=== PATIENT | female | born 1955 | race Caucasian/White ===

== ENCOUNTER 2023-05-14 07:57 | Outpatient (OUT) | payer MEDICARE, OTHER, SELFPAY ==
[2023-05-14 08:20] LABS: Basophils Percent Auto 0.3 % (0.2-2.0); Eosinophils Absolute Auto 0.1 10^3/uL (0.0-0.7); Eosinophils Percent Auto 1.1 % (0.9-7.0); Hematocrit 41.6 % (36.0-48.0); Hemoglobin 13.9 g/dL (12.0-16.0); Immature Granulocytes Abs Auto 0.02 10^3/uL (0.00-0.03); Immature Granulocytes Pct Auto 0.3 % (0.0-0.5); Lymphocytes Absolute Auto 2.7 10^3/uL (1.2-3.8); Lymphocytes Percent Auto 34.3 % (20.5-60.0); Mean Corpuscular HGB Conc 33.4 g/dL (29.9-35.2); Mean Corpuscular Hemoglobin 31.3 pg (26.7-34.0); Mean Corpuscular Volume 93.7 fL (81.0-99.0); Mean Platelet Volume 9.2 fL (9.5-13.5); Monocytes Absolute Auto 0.4 10^3/uL (0.3-0.8); Monocytes Percent Auto 5.3 % (1.7-12.0); Neutrophils Absolute Auto 4.7 10^3/uL (1.4-6.5); Neutrophils Percent Auto 58.7 % (43.0-75.0); Platelet Count 202 10^3/uL (150-450); Red Blood Count 4.44 10^6/uL (4.20-5.40); Red Cell Distribution Width 13.3 % (11.0-15.0); White Blood Count 7.9 10^3/uL (4.0-11.0)
[2023-05-14 14:41] LABS: Alanine Aminotransferase 28 U/L (14-59); Albumin Globulin Ratio 1.2; Albumin Level 3.8 g/dL (3.4-5.0); Alkaline Phosphatase 58 U/L (46-116); Aspartate Amino Transferase 21 U/L (15-37); BUN Creatinine Ratio 23.4; Bilirubin Total 0.9 mg/dL (0.2-1.0); Calcium 9.2 mg/dL (8.5-10.1); Carbon Dioxide 27.2 mmol/L (21.0-32.0); Chloride 100 mmol/L (98-107); Chol HDL Ratio 2.3; Cholesterol 185 mg/dL (<=200); Estimated GFR (African America >60 (>=60); Estimated GFR (Non-African Ame >60 (>=60); Globulin 3.1 g/dL; Glucose 81 mg/dL (74-106); HDL Cholesterol 81 mg/dL (40-60); Potassium 4.2 mmol/L (3.5-5.1); Sodium 134 mmol/L (136-145); Total Protein 6.9 g/dL (6.4-8.2); Triglycerides 49 mg/dL (<=150); VLDL CHOLESTEROL 9.8 mg/dL
[2023-05-14 16:44] LABS: TSH W/ REFLEX FT4 1.814
== END 2023-05-14 07:58 | disposition home or self-care (01) ==
LOC: LAB 08:02
PROVIDERS: PCP Family Medicine
DX: Z13.0 Encounter for screening for diseases of the blood and blood-forming organs and certain disorders involving the immune mechanism (principal)
CPT/HCPCS: 36415; 80053; 80061; 85025

== ENCOUNTER 2024-02-06 13:41 | Outpatient (RCR) | payer MEDICARE, OTHER, SELFPAY | END 2024-03-21 10:00 | disposition home or self-care (01) | LOC: PT 13:41 | PROVIDERS: PCP Family Medicine; Visit Provider Orthopaedic Surgery Orthopaedic Trauma | DX: Z96.642 Presence of left artificial hip joint (principal); M25.552 Pain in left hip | CPT/HCPCS: 97110; 97112; 97162; 97530 ==

== ENCOUNTER 2024-07-23 14:22 | Outpatient (RCR) | payer MEDICARE, OTHER, SELFPAY | END 2024-09-29 09:34 | disposition home or self-care (01) | LOC: PT 14:22 | PROVIDERS: PCP Family Medicine; Visit Provider Orthopaedic Surgery Orthopaedic Trauma | DX: M25.551 Pain in right hip (principal) | CPT/HCPCS: 97010; 97035; 97110; 97112; 97161; G0283 ==

== ENCOUNTER 2024-10-16 08:09 | Outpatient (OUT) | payer MEDICARE, OTHER, SELFPAY ==
--- OUTSIDE RECORDS SUMMARY | 2024-10-16 08:14 | XMS_ITS | CCD ---
Author Organization [facility] Care Team Providers Care Inspection And Testing Supervisor Name Role Phone GO, DR NASH Admitting Unavailable GO, DR NASH Attending Unavailable GO, DR NASH Primary Care Unavailable GO, DR NASH Consulting Unavailable MISC, DR FAGAN Admitting Unavailable MISC, DR FAGAN Attending Unavailable GO, DR NASH Primary Care Unavailable MISC, DR FAGAN Admitting Unavailable MISC, DR FAGAN Attending Unavailable GO, DR NASH Primary Care Unavailable MISC, DR FAGAN Consulting Unavailable GO, DR NASH Admitting Unavailable GO, DR NASH Attending Unavailable GO, DR NASH Primary Care Unavailable ZIEBER, DR YOJANA Rodgers Consulting Unavailable GO, DR NASH Consulting Unavailable LUBY, JARVIS Admitting Unavailable LUBNancy, JARVIS Attending Unavailable GO, DR NASH Primary Care Unavailable LUBNancy, JARVIS Consulting Unavailable Jerry Carroll Unavailable DO Ramakrishna Umanzor Primary Care Provider [phone] MD Marek Chiu II Attending Provider DO Samantha Mendes Attending Provider DO Ramakrishna Krishna Attending Provider [phone] RAMAKRISHNA UMANZOR Primary Care Physician Maia Sloan Unavailable Marek Chiu II Unavailable DO Ramakrishna Umanzor Primary Care Provider [phone] DO Nikolas Darden Attending Provider [phone] Self, Referral Attending Provider Unavailable DO Samantha Mendes Referring Provider MD Koko Urrutia Attending Provider DO Mikey Marquez Attending Provider Jo Ann Ann Attending Unavailable Jo Ann Ann Attending Unavailable DO Ramakrishna Umanzor Primary Care Provider DO Ramakrishna Umanzor Primary Care Provider DO Mikey Marquez Attending Provider Ramakrishna Umanzor DO Unavailable Ramakrishna Umanzor DO Primary Care Provider [phone] Ramakrishna Umanzor DO Primary Care Provider Mikey Marquez DO Attending Provider [phone] Koko Urrutia Admitting Unavailable Ramakrishna Umanzor Primary Care Unavailable Koko Urrutia Attending Unavailable Jimmy, Mikey A Admitting Unavailable Jimmy, Mikey A Attending Unavailable Ramakrishna Umanzor Primary Care Unavailable Ramakrishna Umanzor Primary Care Unavailable Jimmy, Mikey A Admitting Unavailable Jimmy, Mikey A Attending Unavailable Ramakrishna Umanzor Primary Care Unavailable Jimmy, Mikey A Admitting Unavailable Jimmy, Mikey A Attending Unavailable Ramakrishna Umanzor Primary Care Unavailable Self, Referral Admitting Unavailable Self, Referral Attending Unavailable Cinthya, Samantha Referring Unavailable Bastrop, Nikolas L Admitting Unavailable Bastrop, Nikolas L Attending Unavailable Ramakrishna Umanzor Primary Care Unavailable Jimmy, Mikey A Attending Unavailable Jimmy, Mikey A Admitting Unavailable Ramakrishna Umanzor Primary Care Unavailable ERIK BONILLA Attending Unavailable TYRON, NIKOLAS Porter Attending Unavailable RAMAKRISHNA UMANZOR Referring Unavailable CUTLER, NIKOLAS L Referring Unavailable ERIK BONILLA Attending Unavailable CUTLER, NIKOLAS L Attending Unavailable SAMANTHA MENDES Attending Unavailable Ramakrishna Umanzor DO Primary Care Provider Mikey Marquez DO Attending Provider Nikolas Darden DO Unavailable Allergies Allergy Classification Reported Allergen(s) Allergy Type Date of Onset Reaction(s) Facility Penicillins (antibiotic) (2 sources) Amoxicillin Drug Allergy 01-03-20 [facility] Sulfonamides (antibiotic) (1 source) Sulfonamides (Antibiotic) Drug Allergy 01-03-20 24 [facility] (6 sources) Penicillin; Translations: [penicillin] Drug Allergy 08-30-19 Syncope (disorder) [facility] (2 sources) Sulfonamides (Antibiotic) Drug allergy (disorder) 08-30-19 21 [facility] (20 sources) Amoxicillin Drug Allergy 02-10-20 19 [facility] (20 sources) Penicillins Propensity to adverse reactions 02-10-20 19 Unknown, passed out [facility] (6 sources) Penicillins (Antibiotic) Propensity to adverse reactions (Joseph) 06/16/2012 Shock Shock [employer] [facility] Other (20 sources) Sulfonamides (Antibiotic); Translations: [Sulfa (Sulfonamide Antibiotics)] Propensity to adverse reactions 02-10-20 19 Unknown, [facility] (6 sources) Sulfonamides (Antibiotic) Propensity to adverse reactions (Joseph) 06/16/2012 Skin Rash Skin Rash [employer] [facility] [employer] Other (11 sources) Plastic Propensity to adverse reactions 09-25-19 24 Unknown, Unknown Reaction [facility] (4 sources) Sulfonamides (Antibiotic); Translations: [sulfa drugs] Drug allergy Weal (disorder) [facility] (10 sources) Penicillins Drug Allergy 01-23-20 23 Unknown [facility] (10 sources) Sulfonamides (Antibiotic) Drug Allergy 01-23-20 23 Unknown [facility] (1 source) Amoxicillin Drug Allergy 07-22-19 [facility] (1 source) Penicillins Drug allergy (disorder) 07-22-19 25 [facility] Medications Current Medications Medication Drug Class(es) Dates Sig (Normalized) Sig (Original) ascorbic acid 100 mg oral tablet (20 sources) Vitamin C Start: 01-03-2024 take 1 tablet by mouth once daily Ascorbic Acid (Vitamin C) (Vitamin C) 100 mg tablet Active 100 MG PO every day at noon January 03, 2024 12:00am Start: 02-06-2023 Vitamin C Pauline y, Refills(s) 0 Start Date: 02/06/23 Status: Ordered Ascorbic Acid (V itamin C) 500 MG capsule Orally Active calcitriol 0.88862 mg oral capsule (10 sources) Vitamin D3 Analog take 1 capsule by mouth in the morning calcitriol (Rocaltrol) 0.25 MCG capsule Take 0.25 mcg by mouth in the morning. Active Calcium Phos,Dibas-Vitamin D3 (7 sources) Start: 01-03-2024 take 1 tablet by mouth once daily Calcium Phos,Dibas-Vitamin D3 Active 1 TAB PO every day at noon January 03, 2024 12:00am Calcium Phos,Dibas-Vitamin D3 77-400 mg-unit tablet (3 sources) Start: 01-03-2024 take 1 tablet by mouth once daily Calcium Phos,Dibas-Vitamin D3 77-400 mg-unit tablet Active 1 TAB PO every day at noon January 03, 2024 12:00am Start: 01-03-2024 take 1 tablet by rayray th once daily Calcium Phos,Dibas-Vitamin D3 77-400 mg-unit tablet Active 1 TAB PO every day at noon January 02, 2024 11:00pm cefdinir (3 sources) Cephalosporin Antibacterial Cefdinir Active cetirizine hydrochloride 10 mg oral tablet (20 sources) Histamine-1 Receptor Antagonist Start: take 1 tablet by mouth once daily as needed Cetirizine (Zyrtec) 10 mg tablet Active 10 MG PO Daily as needed for allergy symptoms January 03, 2024 12:00am Start: 02-06-2023 Zyrtec Daily, Refills(s) 0 Start Date: 02/06/23 Status: Ordered chondroitin sulfates 200 mg / glucosamine hydrochloride 250 mg oral tablet (20 sources) Start: 01-03-2024 take 1 tablet by mouth once daily at mealtime Glucosamine-Chondroitin (Osteo Bi-Flex) 250-200 mg tablet Active 1 TAB PO Daily at bedtime January 03, 2024 12:00am give after food/meal Start: 02-06-2023 Glucosamine-Ch ondroitin (OSTEO BI-FLEX REGULAR STRENGTH PO) Osteo Bi-Flex Start Date: 02/06/23 Status: Ordered 02/06/2023 Active Start: 02-06-2023 Osteo Bi-Flex Start Date: 02/06/23 Status: Ordered clindamycin 300 mg oral capsule (13 sources) Lincosamide Antibacterial Start: 06-09-2024 take 2 capsules by mouth once Clindamycin Hcl 300 mg capsule Active 600 MG PO once 2 June 09, 2024 1:00am Start: 01-13-2024 End: 01-22-2024 Clindamycin Hcl 300 mg capsu le Discontinued MG PO January 13, 2024 12:00am January 22, 2024 1:32pm Start: 01-13-2024 End: 01-22-2024 Clindamycin Hcl Discontinued MG PO January 13, 2024 12:00am January 22, 2024 1:32pm Start: 01-13-2024 Clindamycin Hc l Active MG PO January 13, 2024 12:00am colestipol hydrochloride 1000 mg oral tablet (6 sources) Bile Acid Sequestrant Start: 01-18-2021 take 2 tablets by mouth every twenty-four hours Colestipol HCl 1 GM 2 tablets Orally Once a day for 30 days Jan, Active Start: 01-18-2021 take 2 tablets by mo uth every twenty-four hours Colestipol HCl 1 GM 2 tablets Orally Once a day for 30 days Jan, Active doxycycline hyclate 100 mg oral tablet (11 sources) Tetracycline-class Drug Start: 08-05-2024 End: 08-15-2024 take 1 tablet by mouth in the morning doxycycline (Vibra-Tabs) 100 MG tablet Indications: Acute non-recurrent maxillary sinusitis Take 1 tablet (100 mg) by mouth in the morning and 1 tablet (100 mg) before bedtime. Do all this for 10 days. Take with a full glass of water and do not lie down for at least 30 minutes after. 20 tablet 08/05/2024 08/15/2024 Active Start: 01-20-2024 End: 04-09-2024 take 1 tablet by mouth twice daily Doxycycline Hyclate 100 mg tablet Discontinued 100 MG PO Twice daily 18 01January 20, 2024 12:00am April 09, 2024 9:27am estradiol 0.1 mg/ml vaginal cream (13 sources) Estrogen Start: 02-19-2024 Estrace 0.1 mg /g Cream See Instructions, 42.5 gm, Refill(s) 3, apply pea size amount to urethra/inner vagina 2x/week for maintainence, [facility]/pharmacy #[id number], 156, cm, 02/19/24 9:52:00 EDT, Height/Length Dosing, 52, kg, 02/19/24 9:52:00 EDT, Weight Dosing Start Date: 02/19/24 Status: Ordered Start: 02-06-2023 Estrace 0.1 MG /GM vaginal cream See Instructions, 42.5 gm, Refill(s) 3, apply pea size amount to urethra/inner vagina 3x/week x 1 month, then 2x/week for maintainence, [facility], 156, cm, 02/06/23 9:27:00 EDT, Height/Length Dosing, 52, kg, 02/06/23 9:27:00 EDT, Weight Dosing 02/06/2023 Active Start: 02-06-2023 Estrace 0.1 mg /g Cream See Instructions, 42.5 gm, Refill(s) 3, apply pea size amount to urethra/inner vagina 3x/week x 1 month, then 2x/week for maintainence, [facility], 156, cm, 02/06/23 9:27:00 EDT, Height/Length Dosing, 52, kg, 02/06/23 9:27:00 EDT, Weight Dosing Start Date: 02/06/23 Status: Ordered folic acid 0.4 mg / vitamin b12 0.5 mg oral tablet (10 sources) Vitamin B12 Start: 01-03-2024 take 1 tablet by mouth once daily Vitamin V80-Ztmtp Acid 500-400 mcg tablet Active 1 TAB PO every day at noon January 03, 2024 12:00am administer with a meal lansoprazole 30 mg delayed release oral capsule (20 sources) Proton Pump Inhibitor Start: 10-20-2022 End: 04-10-2024 take 1 capsule by mouth in the morning lansoprazole (Prevacid) [address] capsule Take 30 mg by mouth in the morning and 30 mg before bedtime. 10/20/2022 Active Start: 02-09-2019 End: 04-09-2024 take 1 capsule by mouth once daily in the morning Lansoprazole 30 mg capsule,delayed release(DR/EC) Discontinued 30 MG PO Every morning February 09, 2019 12:00am April 09, 2024 9:26am levothyroxine sodium 0.088 mg oral tablet (20 sources) l-Thyroxine Start: 03-28-2018 take 1 tablet by mouth once daily in the morning levothyroxine (Synthroid) 88 MCG tablet Indications: Hypothyroidism (acquired) (CMS/HCC) TAKE 1 TABLET BY MOUTH ONCE EVERY MORNING ON AN EMPTY STOMACH 90 tablet 3 05/25/2024 Active Start: 03-28-2018 take 1 tablet by rayray th once daily Synthroid 88 mcg Tab 88 mcg = 1 tab(s), Oral, Daily Start Date: 02/06/23 Status: Ordered lisinopril 10 mg oral tablet (20 sources) Angiotensin Converting Enzyme Inhibitor Start: 04-26-2014 End: 08-11-2024 take 1 tablet by mouth in the morning lisinopril 10 MG tablet Indications: Essential hypertension (CMS/HCC) Take 1 tablet (10 mg) by mouth in the morning. 90 tablet 3 08/12/2023 Active Osteo Complex (6 sources) Osteo Complex *please review for potential _update for e-prescription and drug interaction check* Active pyridoxine hydrochloride 25 mg oral tablet (10 sources) take 1 tablet by mouth in the morning pyridoxine (Vitamin B-6) 25 MG tablet Take 25 mg by mouth in the morning. Active Tums Smoothies 750 MG (6 sources) Start: 03-10-2009 take 1 tablet by mouth four times daily as needed Tums Smoothies 750 MG take 1 tablet 4 times per day as needed Oral *please review for potential _update for e-prescription and drug interaction check* Mar, Active Vitamin B Plus+ 8-6-725 MG-MCG-MG (6 sources) Vitamin B Plus+ 8-6-725 MG-MCG-MG Orally *please review for potential _update for e-prescription and drug interaction check* Active Vitamin B-12 50 MCG (6 sources) Start: 08-11-2008 Vitamin B-12 50 MCG Oral *please review for potential _update for e-prescription and drug interaction check* Aug, Active vitamin B12 (13 sources) Vitamin B12 Start: 02-06-2023 Vitamin B12 Refills(s) 0 Start Date: 02/06/23 Status: Ordered take 1 tablet by mouth in the mo rning cyanocobalamin (Vitamin B-12) 1000 MCG tablet Take 1,000 mcg by mouth in the morning. Active Vitamin B6 (3 sources) Start: 02-06-2023 Vitamin B6 Tiff ly, Refills(s) 0 Start Date: 02/06/23 Status: Ordered Vitamin C 500 MG (5 sources) Vitamin C 500 MG Orally Active Vitamin D (3 sources) Start: 02-06-2023 Vitamin D International_Unit, Oral, qWeek, Refills(s) 0 Start Date: 02/06/23 Status: Ordered Vitamin D 1000 UNIT (6 sources) take 1 capsule by mouth once daily Vitamin D 1000 UNIT 1 capsule Orally Once a day *please review for potential _update for e-prescription and drug interaction check* Active zolpidem tartrate 5 mg oral tablet (20 sources) gamma-Aminobutyr ic Acid-ergic Agonist Start: 10-15-2024 zolpidem (Ambien) 5 MG tablet Indications: Primary insomnia Take 1 tablet (5 mg) by mouth as needed at bedtime for sleep 30 tablet 10/15/2024 Active Start: 10-15-2024 zolpidem (Ambi en) 5 MG tablet Indications: Primary insomnia Take 1 tablet (5 mg) by mouth as needed at bedtime for sleep 30 tablet 10/15/2024 Active Start: 02-06-2023 End: 10-15-2024 zolpidem (Ambien) 5 MG table t Indications: Primary insomnia Take 1 tablet (5 mg) by mouth as needed at bedtime for sleep 30 tablet 08/05/2024 10/15/2024 Discontinued (Reorder) Start: 06-07-2016 take 1 tablet by rayray th every twenty-four hours Ambien CR 6.25 MG 1 tablet at bedtime as needed Orally Once a day for 90 days PRN Jun, Active Completed/Discontinued Medications Medication Drug Class(es) Dates Sig (Normalized) Sig (Original) acetaminophen 500 mg oral tablet (9 sources) Start: 01-20-2024 End: 04-09-2024 take 2 tablets by mouth every eight hours Acetaminophen 500 mg tablet Discontinued 1000 MG PO Q8H 180 January 20, 2024 12:00am April 09, 2024 9:26am Start: 01-20-2024 End: 04-09-2024 take 1000 mg by mouth every eight hours Acetaminophen Discontinued 1000 MG PO Q8H 180 January 20, 2024 12:00am April 09, 2024 9:26am aspirin 81 mg chewable tablet (9 sources) Platelet Aggregation Inhibitor, Nonsteroidal Anti-inflammatory Drug Start: 01-20-2024 End: 04-09-2024 take 1 tablet by mouth twice daily Aspirin 81 mg tablet,chewable Discontinued 81 MG PO Twice daily 74 37 January 20, 2024 12:00am April 09, 2024 9:27am cyclobenzaprine hydrochloride 10 mg oral tablet (20 sources) Muscle Relaxant Start: 01-20-2024 End: 04-09-2024 take 5-10 mg by mouth every eight hours Cyclobenzaprine 10 mg tablet Discontinued 5 - 10 MG PO Q8H 30 January 20, 2024 12:00am April 09, 2024 9:27am Start: 12-18-2023 End: 12-31-2023 take 1 tablet by mouth once daily at bedtime Cyclobenzaprine 5 mg tablet Discontinued 5 MG PO Daily at bedtime December 18, 2023 12:00am December 31, 2023 10:05am diclofenac sodium 75 mg delayed release oral tablet (18 sources) Nonsteroidal Anti-inflammatory Drug Start: 08-28-2023 End: 12-18-2023 take 1 tablet by mouth twice daily Diclofenac Sodium 75 mg tablet,delayed release (DR/EC) Discontinued 75 MG PO Twice daily 60 August 28, 2023 1:00am December 18, 2023 10:27am Start: 07-19-2023 Diclofenac Sod ium 1 % apply 1-2 grams to affected area Externally Four times a day for 30 days Jul, Active Start: 07-19-2023 take 1 tablet by rayray th every twelve hours Diclofenac Sodium 75 MG 1 tablet as needed Orally Twice a day for 42 days Jul, Active docusate sodium 100 mg oral capsule (9 sources) Start: 01-20-2024 End: 04-09-2024 take 1 capsule by mouth twice daily Docusate Sodium (Colace) 100 mg capsule Discontinued 100 MG PO Twice daily January 20, 2024 12:00am April 09, 2024 9:27am fluticasone propionate 0.05 mg/actuat metered dose nasal spray (17 sources) Corticosteroid Start: 02-09-2019 End: 01-03-2024 Fluticasone Propionate 50 mcg/actuation spray,suspension Discontinued 1 SPRAY INTRANASAL Daily February 09, 2019 12:00am January 03, 2024 9:50am ondansetron 4 mg oral tablet (6 sources) Serotonin-3 Receptor Antagonist Start: 01-27-2024 End: 04-09-2024 take 1 tablet by mouth every eight hours Ondansetron Hcl 4 mg tablet Discontinued 4 MG PO Every 8 hours January 27, 2024 12:00am April 09, 2024 9:26am oxyCODONE hydrochloride 5 mg oral tablet (9 sources) Opioid Agonist Start: 01-20-2024 End: 04-09-2024 take 1 tablet by mouth every four hours as needed for pain Oxycodone 5 mg tablet Discontinued 5 MG PO Q4H as needed for Pain 42 January 20, 2024 April 09, 2024 9:26am DISPENSE 42 (FORTY-TWO) TABLETS DIAGNOSIS: M16.12 predniSONE 5 mg oral tablet (14 sources) Start: 12-18-2023 End: 12-25-2023 Prednisone 5 mg tablet Discontinued 5 MG PO As Directed December 18, 2023 12:00am December 25, 2023 8:33am see taper instructions traMADol hydrochloride 50 mg oral tablet (9 sources) Opioid Agonist Start: 01-20-2024 End: 04-09-2024 take 1 tablet by mouth every four hours as needed for pain Tramadol 50 mg tablet Discontinued 50 MG PO Q4H as needed for Pain 42 January 20, 2024 12:00am April 09, 2024 9:27am DISPENSE 42 (FORTY-TWO) TABLETS DIAGNOSIS: M16.12 triamcinolone acetonide 40 mg/ml injectable suspension (10 sources) Corticosteroid Start: 11-28-2022 Kenalog-40 Jul, 120 mg Start: 01-30-2018 Kenalog -40 mg Jan, 40 mg Problems Active Problems Problem Classification Problem Date Documented Da te Episodic/Chronic Anal and rectal conditions (6 sources) Hyperplastic polyp of large intestine; Translations: [Rectal polyp] Episodic Esophageal disorders (20 sources) Gastro-esophageal reflux disease with esophagitis; Translations: [Gastro-esophageal reflux disease with esophagitis] Onset: 04-12-2021 Resolved: 04-12-2021 Chronic Essential hypertension (20 sources) Essential (primary) hypertension; Translations: [Essential hypertension] Onset: 04-11-2021 Chronic Menopausal disorders (20 sources) Atrophy of vagina; Translations: [Postmenopausal atrophic vaginitis] Onset: 01-22-2023 Chronic Miscellaneous mental health disorders (4 sources) Primary insomnia; Translations: [Primary insomnia] 08-05-2024 Chronic Osteoarthritis (20 sources) Osteoarthritis of hip; Translations: [Unilateral primary osteoarthritis, right hip] Onset: 01-22-2023 Chronic Other and unspecified benign neoplasm (3 sources) History of polyp of colon; Translations: [History of colonic polyps] 04-09-2024 Episodic Other bone disease and musculoskeletal deformities (20 sources) Osteopenia; Translations: [Other specified disorders of bone density and structure, unspecified site] 12-18-2023 Episodic Other circulatory disease (1 source) Other specified symptoms and signs involving the circulatory and respiratory systems; Translations: [OTH SPEC SX SIGNS INVLV CIRC RS] Onset: 10-19-2021 Episodic Other connective tissue disease (6 sources) History of repair of hip joint; Translations: [Presence of right artificial hip joint] Chronic Other connective tissue disease (19 sources) History of total hip arthroplasty; Translations: [Presence of right artificial hip joint] 01-22-2024 Chronic Other connective tissue disease (5 sources) Presence of unspecified artificial hip joint; Translations: [Hip joint replacement] Onset: 01-21-2024 01-22-2024 Chronic Other connective tissue disease (10 sources) Presence of left artificial hip joint; Translations: [Hip joint replacement] Onset: 07-22-2024 02-03-2024 Chronic Other connective tissue disease (6 sources) Enthesopathy of hip region; Translations: [Trochanteric bursitis, right hip] Episodic Other connective tissue disease (20 sources) Trochanteric bursitis, left hip; Translations: [Enthesopathy of hip region] Episodic Other connective tissue disease (20 sources) Trochanteric bursitis; Translations: [Trochanteric bursitis, left hip] 09-23-2023 Episodic Other diseases of veins and lymphatics (20 sources) Peripheral venous insufficiency; Translations: [Venous insufficiency (chronic) (peripheral)] 12-18-2023 Episodic Other endocrine disorders (17 sources) Hypoglycemia; Translations: [Hypoglycemia, unspecified] 01-30-2023 Chronic Other gastrointestinal disorders (6 sources) Diarrhea; Translations: [Diarrhea, unspecified] Episodic Other gastrointestinal disorders (3 sources) Diarrhea, unspecified; Translations: [Diarrhea R19.7] Onset: 04-12-2021 Resolved: 07-26-2021 Episodic Other gastrointestinal disorders (3 sources) Heartburn; Translations: [Heartburn] 04-09-2024 Episodic Other nervous system disorders (19 sources) Chronic pain; Translations: [Other chronic pain] 12-25-2023 Chronic Other nervous system disorders (16 sources) Other chronic pain; Translations: [Other chronic pain] Onset: 12-31-2023 12-25-2023 Chronic Other non-traumatic joint disorders (6 sources) Disorder of hip joint; Translations: [Arthropathy, unspecified] Chronic Other non-traumatic joint disorders (1 source) Snapping hip; Translations: [Other specific joint derangements of unspecified hip, not elsewhere classified] 08-05-2024 Chronic Other non-traumatic joint disorders (2 sources) Other specific joint derangements of unspecified hip, not elsewhere classified; Translations: [Other symptoms referable to joint, pelvic region and thigh] 07-22-2024 Chronic Other non-traumatic joint disorders (6 sources) Arthralgia of the lower leg; Translations: [Pain in right knee] Episodic Other non-traumatic joint disorders (6 sources) Pain in right hip joint; Translations: [Pain in right hip] Episodic Other screening for suspected conditions (not mental disorders or infectious disease) (9 sources) Patient encounter status; Translations: [Encounter for screening mammogram for malignant neoplasm of breast] Onset: 12-28-2023 02-20-2024 Episodic Other upper respiratory disease (10 sources) Seasonal allergic rhinitis; Translations: [Other seasonal allergic rhinitis] Onset: 01-22-2023 01-22-2023 Chronic Other upper respiratory infections (20 sources) Frontal sinusitis; Translations: [Chronic frontal sinusitis] 12-18-2023 Chronic Other upper respiratory infections (6 sources) Acute upper respiratory infection, unspecified; Translations: [Acute maxillary sinusitis] Onset: 10-16-2021 Episodic Residual codes; unclassified (6 sources) Family history of polyp of colon; Translations: [Family history of colonic polyps] Episodic Residual codes; unclassified (20 sources) Family history of cancer of colon; Translations: [Family history of malignant neoplasm of digestive organs] 02-10-2019 Episodic Spondylosis; intervertebral disc disorders; other back problems (20 sources) Solitary sacroiliitis; Translations: [Sacroiliitis, not elsewhere classified] 12-18-2023 Chronic Spondylosis; intervertebral disc disorders; other back problems (20 sources) Lumbar radiculopathy; Translations: [Radiculopathy, lumbar region] 12-18-2023 Episodic Substance-related disorders (20 sources) Smoker; Translations: [Nicotine dependence, unspecified, uncomplicated] Onset: 02-11-2023 02-06-2023 Chronic Comment on above: Added secondary to d ocumentation in Social History. Thyroid disorders (19 sources) Hypothyroidism, unspecified; Translations: [Hypothyroidism] Onset: 05-02-2021 01-22-2023 Chronic Thyroid disorders (3 sources) Disorder of thyroid gland 01-30-2023 Episodic Unclassified (1 source) COUGH, UNSPECIFIED; Translations: [COUGH, UNSPECIFIED] Onset: 10-19-2021 Unclassified (3 sources) CONTACT W/AND (SUSP) EXPOS COVID-19; Translations: [CONTACT W/AND (SUSP) EXPOS COVID-19] Onset: 08-02-2021 Urinary tract infections (6 sources) Urinary tract infectious disease; Translations: [Urinary tract infection, site not specified] Onset: 02-06-2023 Episodic Varicose veins of lower extremity (6 sources) Varicose veins of lower extremity; Translations: [Varicose veins of bilateral lower extremities with pain] Episodic Viral infection (2 sources) Herpes zoster without complication; Translations: [Zoster without complications] 08-05-2024 Episodic Past or Other Problems Problem Classification Problem Date Documented Da te Episodic/Chronic Abdominal pain (10 sources) Right inguinal pain; Translations: [Right lower quadrant pain] Onset: 01-22-2023 01-22-2023 Episodic Complications of surgical procedures or medical care (13 sources) Postgastric surgery syndrome; 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] Onset: 02-11-2023 01-30-2023 Episodic Genitourinary symptoms and ill-defined conditions (13 sources) Dysuria; Translations: [Dysuria] Onset: 02-11-2023 Resolved: 06-13-2023 01-30-2023 Episodic Mood disorders (10 sources) Mood disorders Onset: 05-10-2023 Resolved: 10-15-2024 05-10-2023 Other diseases of bladder and urethra (16 sources) Urethral caruncle; Translations: [Urethral caruncle] Onset: 02-06-2023 Episodic Unclassified (1 source) CONTACT W/AND (SUSP) EXPOS COVID-19; Translations: [CONTACT W/AND (SUSP) EXPOS COVID-19] Onset: 07-17-2021 Results Test Name Value Interpretation Reference Range Facility X-ray reportOrdered By: Kunal Omer on 07-22-2024 Study report [facility] [place] [facility] [place] [address] XRay Report Signed Patient: Lashonda Catalan MR#: [id number] : 1955 Acct:[id number] Age/Sex: 68 / F ADM Date: 5 Loc: [facility] [place] Room: Type: REG CLI Attending Dr: Mikey Marquez DO Copies to: Mikey Marquez DO~ Ordering Provider: Mikey Marquez DO Date of Service: 07/22/24 XR/XR hip BI w PEL1V: Z96.642 - Presence of left artificial hip joint BILATERAL HIP -2 views each CLINICAL HISTORY: Bilateral hip pain for months. COMPARISON: Hip series 01/21/2024 FINDINGS: Bilateral THAs without radiographic complication. Degenerative changes noted involving the visualized lumbar spine, SI joints and pubic symphysis. XR/XR hip BI w PEL1V IMPRESSION: NO HARDWARE COMPLICATION.. Impression dictated by: Roel Omer Jr., D.OShayy07/22/2024 3:50 PM Dictation Location: [place] [address] Transcribed By: [facility] 07/22/24 155 Dictated By: Roel Omer Jr, DO 07/22/24 155 Signed By: 07/22/24 1550 [facility] XR hip BI w [id number] 07-22-19 XR hip BI w PEL1V [facility] [place] [facility] [place] [address] XRay Report Signed Patient: Lashonda Catalan MR#: [id number] : 1955 Acct:[id number] Age/Sex: 68 / F ADM Date: 07/22/24 Loc: [facility] Room: Type: REG CLI Attending Dr: Mikey Marquez DO Copies to: Mikey Marquez DO Ordering Provider: Mikey Marquez DO Date of Service: 07/22/24 XR/XR hip BI w PEL1V: Z96.642 - Presence of left artificial hip joint BILATERAL HIP -2 views each CLINICAL HISTORY: Bilateral hip pain for months. COMPARISON: Hip series 01/21/2024 FINDINGS: Bilateral THAs without radiographic complication. Degenerative changes noted involving the visualized lumbar spine, SI joints and pubic symphysis. XR/XR hip BI w PEL1V IMPRESSION: NO HARDWARE COMPLICATION.. Impression dictated by: Roel Omer Jr., D.OShayy07/22/2024 3:50 PM Dictation Location: [facility] Transcribed By: [facility] 07/22/24 1550 Dictated By: Roel Omer Jr, DO 07/22/24 1550 Signed By: 07/22/24 1550 Normal [facility] Physician [facility] Urology Office/Clinic Noteon 02-19-2024 Urology Office/Clinic Note Urology Office/Clinic Note Chief Complaint 6 month follow up HPI Staff 68 year old female patient presents today for a 6 month follow up. Previous DX; Recurrent UTI, vaginal atrophy, * Start Estrace cream 3x nightly for 4 wks then 2x per wk* Urethral caruncle Dysuria: denies Incomplete bladder emptying: sometimes Hematuria: denies visible blood Frequency: denies Urgency: denies Nocturia: once a night Stream: denies hesitancy, has steady stream Leaking: denies Post void dripping: denies Wearing pads/ Depends: denies Urge incontinence: denies Stress incontinence: denies Incontinence without Sensory Awareness: denies Abdominal pain: denies Flank pain: denies Sexual complaints: _ History of Present Illness Tests reviewed: reviewed UA I have reviewed the previous health record information and history for this patient from Dr. Ann. I have reviewed and verified the staff HPI to be accurate for this encounter. Review of Systems PHQ Score Initial Depression Screen Score: 0 SCORE ROS - Provider Constitutional: denies weight loss, denies hot flashes. Eyes: denies eye problems. Gastrointestinal: denies nausea, denies vomiting. Cardiovascular: denies chest pain or angina. Integumentary: no dryness Musculoskeletal: denies musculoskeletal symptoms. ENMT: denies otolaryngeal symptoms. Respiratory: no shortness of breath. Heme/Lymph: denies easy bleeding tendency, denies easy bruising tendency. Psychiatric: no confusion, no anxiety. Genitourinary: See HPI. Physical Exam Vitals & Measurements HR: 85(Peripheral) RR: 16 BP: 130/88 HT: 61 in HT: 156 cm WT: 52 kg WT: 114.4 lb BMI: 21.37 General Appearance: alert , no acute distress, well nourished, well developed female. Assessment/Plan 68 yo female here for evaluation of recurrent UTIs 1. Recurrent UTI (N39.0: Urinary tract infection, site not specified) C&S 02/10/22 - >100,000 E.Coli, Castillo Sensitive 04/26/22 - 10,000-49,000 E.Col, Castillo Sensitive 11/16/22 - >100,000 E.Coli, Castillo Sensitive BBS 10 (14) - no bother with urination. States she does have to take her time with voids to ensure she empties to prevent infections. Using estrogen cream. UA today negative for blood and infection. Denies any infections since last encounter. -Cont Estrace cream. Refills sent. -Cont timed voids -Increase water intake -Consider OTC UTI prevention supplements if UTIs develop 2. Vaginal atrophy (N95.2: Postmenopausal atrophic vaginitis) Using estrace cream. Denies bother. Feels redness has improved. -Cont estrace cream 3. 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 [1] Denies bleeding or issues -See #1 & 2 Follow-up With When Contact Information Seth REYES, Jo Ann Christianson, URL, URO Only if needed [address] [place] [address]- [phone] Additional Instructions: Patient Education Atrophic Vaginitis Amna Benitez, personally scribed for Dr. Ann on 02/19/2024 10:25:54. . Documentation recorded by the scribeAmna, accurately reflects the services(s) I performed and decisions made by me. Authenticated by Dr. Ann on 02/19/2024 11:52:50. Problem List/Past Medical History Ongoing Dumping syndrome Dysuria Hypertension Hypoglycemia Recurrent UTI Smoker Thyroid disease Urethral caruncle Vaginal atrophy Historical No qualifying data Procedure/Surgical History Colonoscopy (2013), Foot (2008), Cholecystectomy (1986), Tonsillectomy (1959), Hip replacement, Salpingectomy. Medications Ambien 5 mg Tab, 5 mg= 1 tab(s), Oral, As Directed Estrace 0.1 mg/g Cream, See Instructions, 3 refills lisinopril 10 mg Tab, 10 mg= 1 tab(s), Oral, Daily Osteo Bi-Flex Prevacid 30 mg Cap-DR, 30 mg= 1 cap(s), Oral, Daily Synthroid 88 mcg Tab, 88 mcg= 1 tab(s), Oral, Daily Vitamin B12 Vitamin B6, Daily Vitamin C, Daily Vitamin D, Oral, qWeek Zyrtec, Daily Allergies penicillin (Faint) sulfa drugs (Hives) Social History Tobacco 10 or more cigarettes (1/2 pack or more)/day in last 30 days Tobacco Use:. Never Smokeless Tobacco Use:. Cigarettes, Started age 18.0 Years. Yes, 02/19/2024 Family History Heart disease: Father. Immunizations Vaccine Date Status Comments influenza virus vaccine, inactivated 04/26/2023 Recorded pneumococcal 23-valent vaccine 04/26/2022 Recorded influenza virus vaccine, inactivated 04/26/2022 Recorded SARS-CoV-2 (COVID-19) mRNA BNT-162b2 vax 05/18/2021 Recorded 2023-02-06: TPV65 zoster vaccine, inactivated 05/01/2021 Recorded pneumococcal 13-valent vaccine 05/01/2021 Recorded influenza virus vaccine, inactivated 05/01/2021 Recorded SARS-CoV-2 (COVID-19) mRNA BNT-162b2 vax 09/27/2020 Recorded SARS-CoV-2 (COVID-19) mRNA BNT-162b2 vax 09/05/2020 Recorded tetanus-diphtheria toxoids 12/23/2019 Recorded influenza virus vaccine, inactivated 04/15/2018 Recorded influenza virus vaccine, i (more content not included)... Normal [facility] Comment on above: Result Comment: Elec tronically Signed By: Seth REYES, Jo Ann Christianson\.br\Date and Time Signed: 02/19/24 11:52 EDT\.br\Electronically Co-Signed By: Amna Agudelo.maxwell\Date and Time Co-Signed: 02/19/24 10:26 EDT Automated basophil %Ordered By: Mikey Marquez on 01-22-2024 Basophils/100 WBC (Bld) 0.2 % Normal . [facility] Comment on above: Performed By: #### B MP, CBC #### [address] Automated basophil countOrde red By: Mikey Marquez on 01-22-2024 Basophils (Bld) [#/Vol] 0.0 10*3/uL Normal 0.0-0.2 [facility] Comment on above: Result Comment: PERF ORMED BY: [place] [address] PATHOLOGIST [employer] INFORMATION CLERK CHUCKY LEY M.D. Performed By: #### B MP, CBC #### [address] Automated blood monocyte cou ntOrdered By: Mikey Marquez on 01-22-2024 Monocytes (Bld) [#/Vol] 0.7 10*3/uL Normal 0.0-0.8 [facility] Comment on above: Performed By: #### B MP, CBC #### [address] Automated eosinophil %Ordere d By: Mikey Marquez on 01-22-2024 Eosinophils/100 WBC (Bld) 0.0 % Normal . [facility] Comment on above: Performed By: #### B MP, CBC #### [address] Automated eosinophil countOr dered By: Mikey Marquez on 01-22-2024 Eosinophils (Bld) [#/Vol] 0.0 10*3/uL Normal 0.0-0.45 [facility] Comment on above: Performed By: #### B MP, CBC #### [address] Automated monocyte %Ordered By: Mikey Marquez on 01-22-2024 Monocytes/100 WBC (Bld) 7.0 % Normal . [facility] Comment on above: Performed By: #### B MP, CBC #### [address] Automated neutrophil %Ordere d By: Mikey Marquez on 01-22-2024 Neutrophils/100 WBC (Bld) 76.0 % Normal . [facility] Comment on above: Performed By: #### B MP, CBC #### [address] Basic Metabolic Panelon 01-05 Creatinine Clr Calc Pharmacy 49.38 Normal [facility] Comment on above: Result Comment: PERF ORMED BY: [place] [address] PATHOLOGIST [employer] INFORMATION CLERK CHUCKY LEY M.D. Performed By: #### B MP, CBC #### [address] GFR/1.73 sq M.predicted MDRD (S/P/Bld) [Vol rate/Area] mL/min/{1.73_m2} Normal [facility] Comment on above: Performed By: #### B MP, CBC #### [address] Calcium [Mass/volume] in Ser um or PlasmaOrdered By: Mikey Marquez on 01-22-2024 Calcium [Mass/Vol] 9.2 mg/dL Normal 8.6-10.3 [facility] Comment on above: Performed By: #### B MP, CBC #### [place] [address] [place] Carbon dioxide, total [Moles /volume] in Serum or PlasmaOrdered By: Mikey Marquez on 01-22-2024 CO2 [Moles/Vol] 27.1 mmol/L Normal 21.0-31.0 [facility] Comment on above: Performed By: #### B MP, CBC #### [place] [address] [place] Chloride [Moles/volume] in S eboni or PlasmaOrdered By: Mikye Marquez on 01-22-2024 Chloride [Moles/Vol] 101 mmol/L Normal 98-107 [facility] Comment on above: Performed By: #### B MP, CBC #### [address] Complete Blood Count Auto Di ffon 01-22-2024 Mean Corpuscular HGB Conc 34.6 g/dL Normal 32.0-35.0 [facility] Comment on above: Performed By: #### B MP, CBC #### [address] NRBC% 0.0 /100{WBC} Normal 0-0.5 [facility] Comment on above: Performed By: #### B MP, CBC #### [address] Creatinine [Mass/volume] in Serum or PlasmaOrdered By: Mikey Marquez on 01-22-2024 Creatinine [Mass/Vol] 0.55 mg/dL Low 0.60-1.20 [facility] Comment on above: Performed By: #### B MP, CBC #### [address] Erythrocyte distribution wid th [Ratio] by Automated countOrdered By: Mikey Marquez on 01-22-2024 Erythrocyte distribution width (RBC) [Ratio] 13.9 % Normal 11.9-15.3 [facility] Comment on above: Performed By: #### B MP, CBC #### [address] Erythrocytes [#/volume] in B lood by Automated countOrdered By: Mikey Marquez on 01-22-2024 RBC (Bld) [#/Vol] 3.97 10*6/uL Normal 3.60-5.00 [facility] Comment on above: Performed By: #### B MP, CBC #### [address] Glucose [Mass/volume] in Ser um or PlasmaOrdered By: Mikey Marquez on 01-22-2024 Glucose [Mass/Vol] 99 mg/dL Normal 70-100 [facility] Comment on above: ADA recommended refe rence rangeRandom Glucose Reference Range is dependent on time and content of last meal. Glucose of more than 200 mg/dL in a nonstressed, ambulatory subject supports the diagnosis of Diabetes Mellitus. Result Comment: [place] om Glucose Reference Range is dependent on time and content of last meal. Glucose of more than 200 mg/dL in a nonstressed, ambulatory subject supports the diagnosis of Diabetes Mellitus. ADA recommended reference range Performed By: #### B MP, CBC #### [address] Hematocrit [Volume Fraction] of Blood by Automated countOrdered By: Mikey Marquez on 01-22-2024 Hematocrit (Bld) [Volume fraction] 35.0 % Normal 34.0-46.4 [facility] Comment on above: Performed By: #### B MP, CBC #### [address] Hemoglobin [Mass/volume] in BloodOrdered By: Mikey Marquez on 01-22-2024 Hemoglobin (Bld) [Mass/Vol] 12.1 g/dL Normal 11.8-15.4 [facility] Comment on above: Performed By: #### B LENORA, CBC #### [address] Leukocytes [#/volume] correc ashli for nucleated erythrocytes in Blood by Automated counOrdered By: Mikey Marquez on 01-22-2024 WBC corrected for nucl RBC Auto (Bld) [#/Vol] 10.3 10*3/uL 3.8-11.6 [facility] Leukocytes [#/volume] in Blo od by Automated countOrdered By: Mikey Marquez on 01-22-2024 WBC (Bld) [#/Vol] 10.3 10*3/uL Normal 3.8-11.6 [facility] Comment on above: Performed By: #### B MP, CBC #### [place] [address] [place] Lymphocytes [#/volume] in Bl ood by Automated countOrdered By: Mikey Marquez on 01-22-2024 Lymphocytes (Bld) [#/Vol] 1.7 10*3/uL Normal 1.00-4.8 [facility] Comment on above: Performed By: #### B MP, CBC #### [address] Lymphocytes/100 leukocytes i n Blood by Automated countOrdered By: Mikey Marquez on 01-22-2024 Lymphocytes/100 WBC (Bld) 16.8 % Normal . [facility] Comment on above: Performed By: #### B MP, CBC #### [address] MCH [Entitic mass] by Automa ashli countOrdered By: Mikey Marquez on 01-22-2024 MCH (RBC) [Entitic mass] 30.5 pg Normal 24.7-34.3 [facility] Comment on above: Performed By: #### B MP, CBC #### [address] MCHC Auto (RBC) [Mass/Vol]Or dered By: Mikey Marquez on 01-22-2024 MCHC (RBC) [Mass/Vol] 34.6 g/dL 32.0-35.0 [facility] MCV [Entitic volume] by Auto mated countOrdered By: Mikey Marquez on 01-22-2024 MCV (RBC) [Entitic vol] 88.2 fL Normal 80-100 [facility] Comment on above: Performed By: #### B MP, CBC #### [address] Neutrophils [#/volume] in Bl ood by Automated countOrdered By: Mikey Marquez on 01-22-2024 Neutrophils (Bld) [#/Vol] 7.8 10*3/uL High 1.8-7.7 [facility] Comment on above: Performed By: #### B MP, CBC #### [address] No Panel InformationOrdered By: Mikey Marquez on 01-22-2024 Estimated GFR (CKD-EPI) > 60.0 mL/Min [facility] Creatinine Clearance (Chem 49.38 [facility] Nucleated erythrocytes [Pres ence] in Blood by Automated countOrdered By: Mikey Marquez on 01-22-2024 Nucleated RBC Auto Ql (Bld) 0.0 /100{WBC} 0-0.5 [facility] Platelet mean volume [Entiti c volume] in Blood by Automated countOrdered By: Mikey Marquez on 01-22-2024 Platelet mean volume (Bld) [Entitic vol] 7.5 fL Normal 6.3-10.7 [facility] Comment on above: Performed By: #### B MP, CBC #### [facility] [address] [place] [address] Platelets [#/volume] in Bloo d by Automated countOrdered By: Mikey Marquez on 01-22-2024 Platelets (Bld) [#/Vol] 213 10*3/uL Normal 150-450 [facility] Comment on above: Performed By: #### B MP, CBC #### [facility] [address] [place] [address] [place] Potassium [Moles/volume] in Serum or PlasmaOrdered By: Mikey Marquez on 01-22-2024 Potassium [Moles/Vol] 3.9 mmol/L Normal 3.5-5.1 [facility] Comment on above: Performed By: #### B MP, CBC #### [facility] [address] [place] [address] Serum or plasma anion gap de terminationOrdered By: Mikey Marquez on 01-22-2024 Anion gap [Moles/Vol] 8.8 mmol/L Normal 6.0-15.0 [facility] Comment on above: Performed By: #### B MP, CBC #### [place] [address] [place] Sodium [Moles/volume] in Ser um or PlasmaOrdered By: Mikey Marquez on 01-22-2024 Sodium [Moles/Vol] 133 mmol/L Low 136-145 [facility] Comment on above: Performed By: #### B MP, CBC #### [facility] [address] [place] [id number] [facility] Urea nitrogen [Mass/volume] in Serum or PlasmaOrdered By: Mikey Marquez on 01-22-2024 Urea nitrogen [Mass/Vol] 8 mg/dL Normal 7-25 [facility] Comment on above: Performed By: #### B MP, CBC #### [facility] [address] [place] [id number] [place] 01-21-2024 L Specimen: [id number] Received: 01/21/24 Status: JOHN Bustos Num: [id number] Spec Type: Surgical Subm Dr: Mikey Marquez DO Tissues: A Femoral Head - Other than Fracture (LT HIP) Procedures: HE/2, Gross/Micro L3, Decalcification Age/ Patient Sex Location Account Attending Physician Lashonda Catalan 68/F [place] [id number] Mikey Marquez DO SPEC NUM: [id number] RECD: 01/21/24 STATUS: JOHN BUSTOS NUM: [id number] ARELY: 01/21/[address]: Mikey Marquez DO ENTERED: 01/21/[address] [facility] [address]: SPEC TYPE: Surgical DEPT: S ORDERED: HE/2, Gross/Micro L3, Decalcification ORDERED: HE/2, Gross/Micro L3, Decalcification Pathological Diagnosis Left hip bone and tissue, total hip arthroplasty: -Femoral head with severe degenerative osteoarthritis displaying marked articular erosion and cortical eburnation with severe bony remodeling including extensive subcortical fibrosis, apparently surrounding a large wedge portion of severe avascular osteonecrosis, and at least moderate osteophytic degenerations, consistent with severe high-grade advanced, and complicated degenerative joint disease of the left hip Clinical Information Left hip osteoarthritis Gross Description Received in formalin, labeled with the patient's name, date of and left hip bone and tissue, is a 4.6 by 1 cm in diameter spherical femoral head with a flat and smooth resection margin through the neck and an aggregate of masters-pink to yellow soft tissue measuring 7.4 x 7.0 x 2.2 cm. A 3.0 x 2. 4 cm eburnated area is on the articular surface, with mild osteophyte formation around the articular surface edge. The specimen is sectioned, revealing a chalky yellow, hemorrhagic spongy bone matrix with no focal lesions nor necrosis. A gross photo is included. The specimen is representatively submitted in A1 (bone following decalcification) and A2 (soft tissue). TW Specimen: [id number] Received: 01/21/24 Status: JOHN Juli Num: [id number] Spec Type: Surgical Subm Dr: Mikey Marquez, DO Tissues: A Femoral Head - Other than Fracture (LT HIP) Procedures: HE/2, Gross/Micro L3, Decalcification Patient: Lashonda Catalan [id number] (Continued) Specimen: [id number] Received: 01/21/24 (Continued) Signed (signature on file) Anamaria Castano MD 01/24/24 1904 Specimen: [id number] Received: 01/21/24 Status: JOHN Bustos Num: [id number] Spec Type: Surgical Subm Dr: Mikey Marquez DO Tissues: A Femoral Head - Other than Fracture (LT HIP) Procedures: HE/2, Gross/Micro L3, Decalcification Patient: Lashonda Catalan [id number] (Continued) Specimen: [id number] Received: 01/21/24 (Continued) Microscopic Description Microscopic examinations are performed supporting the above interpretation CPT Codes 15826 [id number] BONE AND TISSUE Specimen: [id number] Received: 01/21/24 Status: JOHN Bustos Num: [id number] Spec Type: Surgical Subm Dr: Mikey Marquez DO Tissues: A Femoral Head - Other than Fracture (LT HIP) Procedures: HE/2, Gross/Micro L3, Decalcification Patient: Lashonda Catalan [id number] (Continued) Signed (signature on file) Anamaria Castano MD 01/24/241903 Normal [facility] XR low pelvis w/LT x-table h ipon 01-21-2024 XR low pelvis w/LT x-table hip [address] [address] XRay Report Signed Patient: Lashonda Catalan MR#: [id number] : 1955 Acct:[id number] Age/Sex: 68 / F ADM Date: 01/21/24 Loc: [place] Room: Type: [facility] Attending Dr: Mikey Marquez DO Copies to: Mikey Maruqez DO Ordering Provider: Mikey Marquez DO Date of Service: 01/21/24 XR/XR low pelvis w/LT x-table hip: Total hip, do in PACU XR low pelvis w/LT x-table hip 01/21/2024 7:20 AM SIGNS AND SYMPTOMS: Postop total left hip arthroplasty, follow-up PROTOCOL: Frontal radiograph the pelvis with crosstable lateral view of the left hip COMPARISON: 08/21/2018 FINDINGS: There is total hip arthroplasty hardware. There is no evidence of fracture. No hardware complication. Subcutaneous emphysema is noted in the lateral soft tissues of the left hip consistent with an immediate postoperative state. The bony ring of the pelvis is intact. XR/XR low pelvis w/LT x-table hip IMPRESSION: There is total hip arthroplasty hardware. There is no evidence of fracture. No hardware complication. Impression dictated by: Hi Rubio M.D.01/21/2024 3:34 PM Dictation Location: [place] [address] Transcribed By: [facility] 01/21/24 1534 Dictated By: Hi Rubio II, MD 01/21/24 1533 Signed By: 01/21/24 1534 Normal [facility] Alanine aminotransferase [En zymatic activity/volume] in Serum or PlasmaOrdered By: Mikey Maruqez on 01-03-2024 ALT [Catalytic activity/Vol] 18 U/L Normal 7-52 [facility] Comment on above: Performed By: #### C MP wRFX A1C, CBC #### [address] Albumin [Mass/volume] in Ser um or Plasma by Bromocresol green (BCG) dye binding methoOrdered By: Mikey Marquez on 01-03-2024 Albumin BCG dye [Mass/Vol] 4.1 g/dL 3.5-5.7 [facility] Alkaline phosphatase [Enzyma tic activity/volume] in Serum or PlasmaOrdered By: Mikey Marquez on 01-03-2024 ALP [Catalytic activity/Vol] 60 U/L Normal 34-104 [facility] Comment on above: Result Comment: PERF ORMED BY: [place] [address] PATHOLOGIST [employer] INFORMATION CLERK CHUCKY LEY M.D. Performed By: #### C MP wRFX A1C, CBC #### [address] Aspartate aminotransferase [ Enzymatic activity/volume] in Serum or PlasmaOrdered By: Mikey Marquez on 01-03-2024 AST [Catalytic activity/Vol] 19 U/L Normal 13-39 [facility] Comment on above: Performed By: #### C MP wRFX A1C, CBC #### [address] Automated basophil %Ordered By: Mikey Marquez on 01-03-2024 Basophils/100 WBC (Bld) 0.3 % Normal . [facility] Comment on above: Performed By: #### C MP wRFX A1C, CBC #### [address] Automated basophil countOrde red By: Mikey Marquez on 01-03-2024 Basophils (Bld) [#/Vol] 0.0 10*3/uL Normal 0.0-0.2 [facility] Comment on above: Result Comment: PERF ORMED BY: [place] [address] PATHOLOGIST [employer] INFORMATION CLERK CHUCKY LEY M.D. Performed By: #### C MP wRFX A1C, CBC #### [address] Automated blood monocyte cou ntOrdered By: Mikey Marquez on 01-03-2024 Monocytes (Bld) [#/Vol] 0.6 10*3/uL Normal 0.0-0.8 [facility] Comment on above: Performed By: #### C MP wRFX A1C, CBC #### [address] Automated eosinophil %Ordere d By: Mikey Marquez on 06-28-2024 Eosinophils/100 WBC (Bld) 0.3 % Normal . [facility] Comment on above: Performed By: #### C MP wRFX A1C, CBC #### [facility] [address] Automated eosinophil countOr dered By: Mikey Marquez on 01-03-2024 Eosinophils (Bld) [#/Vol] 0.0 10*3/uL Normal 0.0-0.45 [facility] Comment on above: Performed By: #### C MP wRFX A1C, CBC #### [facility] [address] Automated monocyte %Ordered By: Mikey Marquez on 01-03-2024 Monocytes/100 WBC (Bld) 5.7 % Normal . [facility] [facility] Comment on above: Performed By: #### C MP wRFX A1C, CBC #### [address] Automated neutrophil %Ordere d By: Mikey Marquez on 01-03-2024 Neutrophils/100 WBC (Bld) 74.1 % Normal . [facility] Comment on above: Performed By: #### C MP wRFX A1C, CBC #### [facility] [address] [place] [address] Bilirubin Test strip Ql (U)O rdered By: Mikey Marquez on 01-03-2024 Bilirubin Ql (U) Negative Negative [facility] Bilirubin.total [Mass/volume ] in Serum or PlasmaOrdered By: Mikey Marquez on 01-03-2024 Bilirubin [Mass/Vol] 0.6 mg/dL Normal 0.3-1.0 [facility] Comment on above: Performed By: #### C MP wRFX A1C, CBC #### [facility] [address] [place] [address] [place] CMP with reflex to A1Con Albumin [Mass/Vol] 4.1 g/dL Normal 3.5-5.7 [facility] Comment on above: Performed By: #### C MP wRFX A1C, CBC #### [facility] [address] [place] [address] GFR/1.73 sq M.predicted MDRD (S/P/Bld) [Vol rate/Area] mL/min/{1.73_m2} Normal [facility] Comment on above: Performed By: #### C MP wRFX A1C, CBC #### [address] Calcium [Mass/volume] in Ser um or PlasmaOrdered By: Mikey Marquez on 01-03-2024 Calcium [Mass/Vol] 9.6 mg/dL Normal 8.6-10.3 [facility] Comment on above: Performed By: #### C MP wRFX A1C, CBC #### [address] Carbon dioxide, total [Moles /volume] in Serum or PlasmaOrdered By: Mikey Marquez on 01-03-2024 CO2 [Moles/Vol] 27.0 mmol/L Normal 21.0-31.0 [facility] Comment on above: Performed By: #### C MP wRFX A1C, CBC #### [place] [address] [place] Chloride [Moles/volume] in S eboni or PlasmaOrdered By: Mikey Marquez on 01-03-2024 Chloride [Moles/Vol] 103 mmol/L Normal 98-107 [facility] Comment on above: Performed By: #### C MP wRFX A1C, CBC #### [place] [address] [place] Color of Urine by AutoOrdere d By: Mikey Marquez on 01-03-2024 Color (U) Light-yellow Normal Yellow [facility] Comment on above: Order Comment: Name Collection Type:: Clean-Voided Midstream Performed By: #### U A #### [address] Complete Blood Count Auto Di ffon 01-03-2024 Mean Corpuscular HGB Conc 33.5 g/dL Normal 32.0-35.0 [facility] Comment on above: Performed By: #### C MP wRFX A1C, CBC #### [facility] [address] NRBC% 0.1 /100{WBC} Normal 0-0.5 [facility] Comment on above: Performed By: #### C MP wRFX A1C, CBC #### [facility] [address] [place] [id number] [facility] Creatinine [Mass/volume] in Serum or PlasmaOrdered By: Mikey Marquez on 01-03-2024 Creatinine [Mass/Vol] 0.70 mg/dL Normal 0.60-1.20 [facility] Comment on above: Performed By: #### C MP wRFX A1C, CBC #### [facility] [address] ECG 12 lead ECGon 01-03-2024 ECG 12 lead ECG [facility] [place] [address] [place] [address] Electrocardiograph Report Signed Patient: Lashonda Catalan MR#: [id number] : 1955 Acct:[id number] Age/Sex: 68 / F ADM Date: 01/03/24 Loc: Room: Type: [facility] Attending Dr: Mikey Marquez DO Ordering Provider: Mikey Marquez DO Date of Service: 01/03/24 ECG/ECG 12 lead ECG: LEFT TOTAL HIP ARTHROPLASTY Copies to: Test Reason : Blood Pressure : / mmHG Vent. Rate : 078 BPM Atrial Rate : 078 BPM P-R Int : 134 ms QRS Dur : 080 ms QT Int : 366 ms P-R-T Axes : 058 066 055 degrees QTc Int : 417 ms Normal sinus rhythm Normal ECG When compared with ECG of 16-OCT-2016 09:54, No significant change was found Confirmed by NIKKO TAVERA MD, FACC ([id number]) on 01/03/2024 6:12:41 PM Referred By: JIMMY Electronically Signed By:NIKKO TAVERA MD, FACC Transcribed By: MUS Signed By Naveed Tavera MD 01/03/241811 Normal [facility] Erythrocyte distribution wid th [Ratio] by Automated countOrdered By: Mikey Marquez on 01-03-2024 Erythrocyte distribution width (RBC) [Ratio] 13.5 % Normal 11.9-15.3 [facility] Comment on above: Performed By: #### C MP wRFX A1C, CBC #### [facility] [address] [place] [address] [place] Erythrocytes [#/volume] in B lood by Automated countOrdered By: Mikey Marquez on 01-03-2024 RBC (Bld) [#/Vol] 4.48 10*6/uL Normal 3.60-5.00 [facility] Comment on above: Performed By: #### C MP wRFX A1C, CBC #### [facility] [address] [place] [address] [place] Glucose [Mass/volume] in Ser um or PlasmaOrdered By: [place] Marquez on 01-03-2024 Glucose [Mass/Vol] 55 mg/dL Low 70-100 [facility] Comment on above: Performed By: #### C MP wRFX A1C, CBC #### [facility] [address] Glucose [Mass/volume] in Uri ne by Test stripOrdered By: Mikey Marquez on 01-03-2024 Glucose Test strip (U) [Mass/Vol] Normal mg/dL Normal [facility] Hematocrit [Volume Fraction] of Blood by Automated countOrdered By: [place]key Marquez on 01-03-2024 Hematocrit (Bld) [Volume fraction] 40.3 % Normal 34.0-46.4 [facility] Comment on above: Performed By: #### C MP wRFX A1C, CBC #### [facility] [address] [place] [address] [place] Hemoglobin Test strip Ql (U) Ordered By: [place]key Marquez on 01-03-2024 Hemoglobin Ql (U) Negative Negative [facility] Hemoglobin [Mass/volume] in BloodOrdered By: [place]key Marquez on 01-03-2024 Hemoglobin (Bld) [Mass/Vol] 13.5 g/dL Normal 11.8-15.4 [facility] Comment on above: Performed By: #### C MP wRFX A1C, CBC #### [facility] [address] [place] [address] [place] Ketones [Presence] in Urine by Test stripOrdered By: [place]key Marquez on 01-03-2024 Ketones Ql (U) Negative Normal Negative [facility] Comment on above: Order Comment: Name Collection Type:: Clean-Voided Midstream Performed By: #### U A #### [facility] [address] [place] [address] [place] Leukocyte esterase [Presence ] in Urine by Test stripOrdered By: Mikey Marquez on 01-03-2024 Leukocyte esterase Test strip Ql (U) Negative Normal Negative [facility] Comment on above: Order Comment: Name Collection Type:: Clean-Voided Midstream Performed By: #### U A #### [address] Leukocytes [#/volume] correc ashli for nucleated erythrocytes in Blood by Automated counOrdered By: Mikey Marquez on 01-03-2024 WBC corrected for nucl RBC Auto (Bld) [#/Vol] 11.0 10*3/uL 3.8-11.6 [facility] Leukocytes [#/volume] in Blo od by Automated countOrdered By: Mikey Marquez on 01-03-2024 WBC (Bld) [#/Vol] 11.0 10*3/uL Normal 3.8-11.6 [facility] Comment on above: Performed By: #### C MP wRFX A1C, CBC #### [facility] [address] [place] [address] [place] Lymphocytes [#/volume] in Bl ood by Automated countOrdered By: Mikey Marquez on 01-03-2024 Lymphocytes (Bld) [#/Vol] 2.2 10*3/uL Normal 1.00-4.8 [facility] Comment on above: Performed By: #### C MP wRFX A1C, CBC #### [place] [address] [place] Lymphocytes/100 leukocytes i n Blood by Automated countOrdered By: [place] Marquez on 01-03-2024 Lymphocytes/100 WBC (Bld) 19.6 % Normal . [facility] Comment on above: Performed By: #### C MP wRFX A1C, CBC #### [facility] [address] [place] [address] MCH [Entitic mass] by Automa ashli countOrdered By: [place] Marquez on 01-03-2024 MCH (RBC) [Entitic mass] 30.1 pg Normal 24.7-34.3 [facility] Comment on above: Performed By: #### C MP wRFX A1C, CBC #### [facility] [address] [place] [address] MCHC Auto (RBC) [Mass/Vol]Or dered By: [place] Marquez on 01-03-2024 MCHC (RBC) [Mass/Vol] 33.5 g/dL 32.0-35.0 [facility] MCV [Entitic volume] by Auto mated countOrdered By: [place] Marquez on 01-03-2024 MCV (RBC) [Entitic vol] 90.1 fL Normal 80-100 [facility] Comment on above: Performed By: #### C MP wRFX A1C, CBC #### [facility] [address] [place] [address] Neutrophils [#/volume] in Bl ood by Automated countOrdered By: [place]key Marquez on 01-03-2024 Neutrophils (Bld) [#/Vol] 8.2 10*3/uL High 1.8-7.7 [facility] Comment on above: Performed By: #### C MP wRFX A1C, CBC #### [facility] [address] [place] [address] Nitrite Test strip Ql (U)Ord ered By: [place] Marquez on 01-03-2024 Nitrite Ql (U) Negative Negative [facility] No Panel InformationOrdered By: [place] Marquez on 01-03-2024 Estimated GFR (CKD-EPI) > 60.0 mL/Min [facility] Creatinine Clearance (Chem N/A [facility] Nucleated erythrocytes [Pres ence] in Blood by Automated countOrdered By: [place]key Marquez on 01-03-2024 Nucleated RBC Auto Ql (Bld) 0.1 /100{WBC} 0-0.5 [facility] Platelet mean volume [Entiti c volume] in Blood by Automated countOrdered By: [place]key Marquez on 01-03-2024 Platelet mean volume (Bld) [Entitic vol] 8.0 fL Normal 6.3-10.7 [facility] Comment on above: Performed By: #### C MP wRFX A1C, CBC #### [facility] [address] Platelets [#/volume] in Bloo d by Automated countOrdered By: [place]key Marquez on 01-03-2024 Platelets (Bld) [#/Vol] 275 10*3/uL Normal 150-450 [facility] Comment on above: Performed By: #### C MP wRFX A1C, CBC #### [facility] [address] [place] [address] [place] Potassium [Moles/volume] in Serum or PlasmaOrdered By: [place] Marquez on 01-03-2024 Potassium [Moles/Vol] 4.4 mmol/L Normal 3.5-5.1 [facility] Comment on above: Performed By: #### C MP wRFX A1C, CBC #### [facility] [address] Protein Test strip (U) [Mass /Vol]Ordered By: [place] Marquez on 01-03-2024 Protein (U) [Mass/Vol] Negative Negative [facility] Protein [Mass/volume] in Ser um or PlasmaOrdered By: [place] Marquez on 01-03-2024 Protein [Mass/Vol] 6.5 g/dL Normal 6.4-8.9 [facility] Comment on above: Performed By: #### C MP wRFX A1C, CBC #### [facility] [address] Serum globulin measurement b y calculation (mass/volume)Ordered By: [place] Marquez on 01-03-2024 Globulin (S) [Mass/Vol] 2.4 g/dL Normal [facility] Comment on above: Performed By: #### C MP wRFX A1C, CBC #### [facility] [address] [place] [address] Serum or plasma albumin/glob ulin mass ratioOrdered By: [place] Marquez on 01-03-2024 Albumin/Globulin [Mass ratio] 1.7 {ratio} Normal [facility] Comment on above: Performed By: #### C MP wRFX A1C, CBC #### [address] Serum or plasma anion gap de terminationOrdered By: [place]key Marquez on 01-03-2024 Anion gap [Moles/Vol] 10.4 mmol/L Normal 6.0-15.0 [facility] Comment on above: Performed By: #### C MP wRFX A1C, CBC #### [address] Sodium [Moles/volume] in Ser um or PlasmaOrdered By: [place] Marquez on 01-03-2024 Sodium [Moles/Vol] 136 mmol/L Normal 136-145 [facility] Comment on above: Performed By: #### C MP wRFX A1C, CBC #### [address] Specific gravity Test strip (U) [Rel density]Ordered By: [place] Marquez on 01-03-2024 Specific gravity (U) [Rel density] 1.017 1.001-1.030 [facility] Urea nitrogen [Mass/volume] in Serum or PlasmaOrdered By: [place] Marquez on 01-03-2024 Urea nitrogen [Mass/Vol] 19 mg/dL Normal 7-25 [facility] Comment on above: Performed By: #### C MP wRFX A1C, CBC #### [address] Urinalysison 01-03-2024 Bilirubin,Urine Negative Normal Negative [facility] Comment on above: Order Comment: Name Collection Type:: Clean-Voided Midstream Performed By: #### U A #### [address] Glucose Ql (U) Normal Normal Normal [facility] Comment on above: Order Comment: Name Collection Type:: Clean-Voided Midstream Performed By: #### U A #### [address] Nitrite,Urine Negative Normal Negative [facility] Comment on above: Order Comment: Name Collection Type:: Clean-Voided Midstream Performed By: #### U A #### [address] Occult Blood,Urine Negative Normal Negative [facility] Comment on above: Order Comment: Name Collection Type:: Clean-Voided Midstream Result Comment: PERF ORMED BY: [place] [address] PATHOLOGIST [employer] INFORMATION CLERK CHUCKY LEY M.D. Performed By: #### U A #### [address] Protein,Urine Negative Normal Negative [facility] Comment on above: Order Comment: Name Collection Type:: Clean-Voided Midstream Performed By: #### U A #### [address] Specificy [place] 1.017 Normal 1.001-1.030 [facility] Comment on above: Order Comment: Name Collection Type:: Clean-Voided Midstream Performed By: #### U A #### [address] Urobilinogen,Urine Normal Normal Normal [facility] Comment on above: Order Comment: Name Collection Type:: Clean-Voided Midstream Performed By: #### U A #### [address] Urine appearanceOrdered By: [place]key Marquez on 01-03-2024 Appearance (U) Clear Normal Clear [facility] Comment on above: Order Comment: Name Collection Type:: Clean-Voided Midstream Performed By: #### U A #### [place] [address] [place] [address] [facility] Urobilinogen Test strip (U) [Mass/Vol]Ordered By: Mikey Marquez on 01-03-2024 Urobilinogen (U) [Mass/Vol] Normal mg/dL Normal [facility] pH of Urine by Test stripOrd ered By: Mikey Marquez on 01-03-2024 pH (U) 6.5 [pH] Normal 5.0-9.0 [facility] Comment on above: Order Comment: Name Collection Type:: Clean-Voided Midstream Performed By: #### U A #### [place] [id number] [facility] MM screening mammo BI w/CADo n 12-30-2023 MM screening mammo BI w/CAD [facility] [place] [address] [place] [address] Mammography Report Signed Patient: Lashonda Catalan MR#: [id number] : 1955 Acct:[id number] Age/Sex: 68 / F ADM Date: 12/28/23 Loc: [place] Room: Type: [facility] Attending Dr: Referral Self Copies to: DO Ramakrishna Lima DO SELF,REFERRAL Ordering Provider: SELF,REFERRAL Date of Service: 12/28/23 MM/MM screening mammo BI w/CAD: SCREENING CLINICAL DATA: Screening for malignancy. SCREENING MAMMOGRAM - FULL FIELD DIGITAL WITH TOMOSYNTHESIS AND CAD COMPARISON:Mammogram s dating back to 2019. Tomosynthesis craniocaudal and mediolateral oblique views of both breasts were obtained using low- dose digital technique. This examination was reviewed with the aid of CAD. FINDINGS: The breast tissue is composed of scattered fibroglandular densities. There are no dominant masses, typically malignant calcifications or architectural distortion. There has been no significant interval change. MM/MM screening mammo BI w/CAD IMPRESSION: NO MAMMOGRAPHIC EVIDENCE OF MALIGNANCY. ROUTINE FOLLOW-UP IS RECOMMENDED IN ONE YEAR. RESULT CODE: 1 Negative DENSITY CODE: 2 (approximately 25-50% glandular) FOLLOW UP: 1YR The false-negative rate of mammography is approximately 10-percent. Management of a palpable abnormality must be based on clinical grounds. Patient was entered into a reminder system with a target due date for the next mammogram. Impression dictated by: Roel Omer Jr., D.O.12/30/2023 9:54 AM Dictation Location: [facility] Transcribed By: RUTHIE 12/30/23953 Dictated By: Roel Omer Jr, DO 12/30/23952 Signed By: 12/30/23953 Normal [facility] Bacterial blood cultureOrder ed By: Nikolas Darden on 11-29-2023 Bacteria identified Cx Nom (Bld) NO GROWTH 5 DAYS [facility] Blood Cultureon 11-29-2023 Bacteria identified Cx Nom (Bld) NO GROWTH 5 DAYS PERFORMED BY: [facility] [address] [place] [address] PATHOLOGIST [employer] INFORMATION CLERK CHUCKY LEY M.D. Normal [facility] Comment on above: Performed By: #### C UBLD ####[facility] [id number] Performed By: #### C UBLD #### [facility] [address] XR CHEST 2 VIEWSon 4 XR CHEST 2 VIEWS FINDINGS: Lung volumes are slightly increased consistent with early emphysematous COPD changes. No focal infiltrates, nodules or suspicious mass lesions are seen. Cardiac silhouette size is unremarkable. Mild thoracolumbar scoliosis. IMPRESSION: COPD, no focal infiltrates TRANSCRIBED BY: ELECTRONICALLY SIGNED BY: Roel Yarbrough MD Normal Not Available Patient Educationon 08-14-19 Patient Education Obstetrics and Gynecology Atrophic Vaginitis Atrophic vaginitis is a condition in which the tissues that line the vagina become dry and thin. This condition is most common in women who have stopped having regular menstrual periods (are in menopause). This usually starts when a woman is 45 to 55 years old. That is the time when a woman's estrogen levels begin to decrease. Estrogen is a female hormone. It helps to keep the tissues of the vagina moist. It stimulates the vagina to produce a clear fluid that lubricates the vagina for sex. This fluid also protects the vagina from infection. Lack of estrogen can cause the lining of the vagina to get thinner and dryer. The vagina may also shrink in size. It may become less elastic. Atrophic vaginitis tends to get worse over time as a woman's estrogen level drops. What are the causes? This condition is caused by the normal drop in estrogen that happens around the time of menopause. What increases the risk? Certain conditions or situations may lower a woman's estrogen level, leading to a higher risk for atrophic vaginitis. You are more likely to develop this condition if: ? You are taking medicines that block estrogen. ? You have had your ovaries removed. ? You are being treated for cancer with radiation or medicines (chemotherapy). ? You have given or are . ? You are older than age 50. ? You smoke. What are the signs or symptoms? Symptoms of this condition include: ? Pain, soreness, a feeling of pressure, or bleeding during sex (dyspareunia). ? Vaginal burning, irritation, or itching. ? Pain or bleeding when a speculum is used in a vaginal exam. ? Having burning pain while urinating. ? Vaginal discharge. In some cases, there are no symptoms. How is this diagnosed? This condition is diagnosed based on your medical history and a physical exam. This will include a pelvic exam that checks the vaginal tissues. Though rare, you may also have other tests, including: ? A urine test. ? A test that checks the acid balance in your vagina (acid balance test). How is this treated? Treatment for this condition depends on how severe your symptoms are. Treatment may include: ? Using an apwx-yzp-hdpuiuh vaginal lubricant before sex. ? Using a long-acting vaginal moisturizer. ? Using low-dose estrogen for moderate to severe symptoms that do not respond to other treatments. Options include creams, tablets, and inserts (vaginal rings). Before you use a vaginal estrogen, tell your health care provider if you have a history of: ? Breast cancer. ? Endometrial cancer. ? Blood clots. If you are not sexually active and your symptoms are very mild, you may not need treatment. Follow these instructions at home: Medicines ? Take ertc-dqi-vstgdks and prescription medicines only as told by your health care provider. ? Do not use herbal or alternative medicines unless your health care provider says that you can. ? Use xqgg-eax-qqfmztt creams, lubricants, or moisturizers for dryness only as told by your health care provider. General instructions ? If your atrophic vaginitis is caused by menopause, discuss all of your menopause symptoms and treatment options with your health care provider. ? Do not douche. ? Do not use products that can make your vagina dry. These include: ? Scented feminine sprays. ? Scented tampons. ? Scented soaps. ? Vaginal sex can help to improve blood flow and elasticity of vaginal tissue. If you choose to have sex and it hurts, try using a water-soluble lubricant or moisturizer right before having sex. Contact a health care provider if: ? Your discharge looks different than normal. ? Your vagina has an unusual smell. ? You have new symptoms. ? Your symptoms do not improve with treatment. ? Your symptoms get worse. Summary ? Atrophic vaginitis is a condition in which the tissues that line the vagina become dry and thin. It is most common in women who have stopped having regular menstrual periods (are in menopause). ? Treatment options include using vaginal lubricants and low-dose vaginal estrogen. ? Contact a health care provider if your vagina has an unusual smell, or if your symptoms get worse or do not improve after treatment. This information is not intended to replace advice given to you by your health care provider. Make sure you discuss any questions you have with your health care provider. Document Revised: 12/22/2020 Document Reviewed: 12/22/2020 [employer]ie Patient Education ? 2022 [employer]. [facility] Screenson 08-14-2023 Screens [id number] [id number] [facility] Urology Office/Clinic Noteon 08-14-2023 Urology Office/Clinic Note Chief Complaint 6 month F/U HPI Staff Pt is here for a 6 month F/U Previous DX; Recurrent UTI, vaginal atrophy, * Start Estrace cream 3x nightly for 4 wks then 2x per wk* She doesn't really see any change yet but still doing this Urethral caruncle C&S 02/10/22 - >100,000 E.Coli, Castillo Sensitive 04/26/22 - 10,000-49,000 E.Col, Castillo Sensitive 11/16/22 - >100,000 E.Coli, Castillo Sensitive B&BSQ 14 Dysuria: _denies Incomplete bladder emptying: denies Hematuria: denies visible blood Frequency: every couple hours Urgency: denies Nocturia: once nightly Stream: denies hesitation, spray stream normal stream Leaking: denies Post void dripping: denies Wearing pads/ Depends: denies Urge incontinence: denies Stress incontinence: denies Incontinence without Sensory Awareness: denies Abdominal pain: denies Flank pain: denies Sexual complaints: denies History of Present Illness Tests reviewed: reviewed UA I have reviewed the previous health record information and history for this patient from Dr. Ann. I have reviewed and verified the staff HPI to be accurate for this encounter. Review of Systems PHQ Score Initial Depression Screen Score: 0 SCORE ROS - Provider Constitutional: denies weight loss, denies hot flashes. Eyes: denies eye problems. Gastrointestinal: denies nausea, denies vomiting. Cardiovascular: denies chest pain or angina. Integumentary: no dryness Musculoskeletal: denies musculoskeletal symptoms. ENMT: denies otolaryngeal symptoms. Respiratory: no shortness of breath. Heme/Lymph: denies easy bleeding tendency, denies easy bruising tendency. Psychiatric: no confusion, no anxiety. Genitourinary: See HPI. Physical Exam Vitals & Measurements BP: 118/84 HT: 61 in HT: 156 cm WT: 52 kg WT: 114.4 lb BMI: 21.37 General Appearance: alert , no acute distress, well nourished, well developed female. Genitourinary: bladder nonpalpable, no flank pain. Assessment/Plan 67 year old female here for evaluation of recurrent UTIs 1. Recurrent UTI (N39.0: Urinary tract infection, site not specified) C&S 02/10/22 - >100,000 E.Coli, Castillo Sensitive 04/26/22 - 10,000-49,000 E.Col, Castillo Sensitive 11/16/22 - >100,000 E.Coli, Castillo Sensitive BBS 14 (9) UA today is negative for blood and infection. Denies any infections since last encounter. Mentioned bladder medication if urinary sxs become bothersome. Cont estrace cream given no UTIs since started. Pt tolerating well. Alternative supplements discussed, pt doing well without them -Consider OTC UTI prevention supplements if UTIs develop -Cont Estrace cream 2. Vaginal atrophy (N95.2: Postmenopausal atrophic vaginitis) See #1. Denies sx relief however no UTIs Denies bother -Cont estrace cream 3. 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 Secondary to vaginal atrophy. Denies seeing any blood. Denies any bothersome sxs or increase in size. Will re-examine at next visit to ensure no changes. Pt agrees. -Exam in 6 mos Follow-up With When Contact Information Seth REYES, Jo Ann Christianson, URL, [facility] [address], [place] [address] [phone] Additional Instructions: 6 mos Patient Education Atrophic Vaginitis IAmna, personally scribed for Dr. Ann on 08/14/2023 11:03:37. . Documentation recorded by the scribe, Amna Agudelo, accurately reflects the services(s) I performed and decisions made by me. Authenticated by Dr. Ann on 08/14/2023 11:39:29. Problem List/Past Medical History Ongoing Dumping syndrome Dysuria Hypertension Hypoglycemia Recurrent UTI Smoker Thyroid disease Urethral caruncle Vaginal atrophy Historical No qualifying data Procedure/Surgical History Colonoscopy (2013), Foot (2008), Cholecystectomy (1986), Tonsillectomy (1959), Hip replacement, Salpingectomy. Medications Ambien 5 mg Tab, 5 mg= 1 tab(s), Oral, As Directed Estrace 0.1 mg/g Cream, See Instructions, 3 refills lisinopril 10 mg Tab, 10 mg= 1 tab(s), Oral, Daily Osteo Bi-Flex Prevacid 30 mg Cap-DR, 30 mg= 1 cap(s), Oral, Daily Synthroid 88 mcg Tab, 88 mcg= 1 tab(s), Oral, Daily Vitamin B12 Vitamin B6, Daily Vitamin C, Daily Vitamin D, Oral, qWeek Zyrtec, Daily Allergies penicillin (Faint) sulfa drugs (Hives) Social History Tobacco 10 or more cigarettes (1/2 pack or more)/day in last 30 days, Smoker, current status unknown Tobacco Use:. Never Smokeless Tobacco Use:. Cigarettes, Started age 18.0 Years. Yes, 08/14/2023 Family History Heart disease: Father. Immunizations Vaccine Date Status Comments influenza virus vaccine, inactivated 04/26/2023 Recorded pneumococcal 23-valent vaccine 04/26/2022 Recorded influenza virus vaccine, inactivated 04/26/2022 Recorded SARS-CoV-2 (COVID-19) mRNA BNT-162b2 vax 05/18/2021 Recorded 2023-02-06: TPV65 zoster vaccine, inactivated 05/01/2021 Recorded pneumococcal 13-valent vaccine 05/01/2021 (more content not included)... Normal [facility] Comment on above: Result Comment: Elec tronically Signed By: Jo Ann Ann MD\.br\Date and Time Signed: 08/14/23 11:39 EST\.br\Electronically Co-Signed By: Amna Agudelo\.br\Date and Time Co-Signed: 08/14/23 11:03 EST RESPIRATORY PANEL PLUSon Adenovirus Not detected Normal NOT DETECTED [facility] Comment on above: Performed By: #### R SPLUS #### [facility] [address] [place] [address] Dr. Florecita Ponce. Parapertusis Not detected Normal NOT DETECTED [facility] Comment on above: Performed By: #### R SPLUS #### [facility] [address] [place] [address] Dr. Florecita Roger Pertussis Not detected Normal NOT DETECTED [facility] Comment on above: Performed By: #### R SPLUS #### [facility] [address] [place] [address] Dr. Florecita Castano Chlamydia Pneumoniae Not detected Normal NOT DETECTED [facility] Comment on above: Performed By: #### R SPLUS #### [facility] [address] [place] [address] Dr. Florecita Castano Coronavirus 229E Not detected Normal NOT DETECTED [facility] Comment on above: Performed By: #### R SPLUS #### [facility] [address] [place] [address] Dr. Florecita Castano Coronavirus HKU1 Not detected Normal NOT DETECTED [facility] Comment on above: Performed By: #### R SPLUS #### [facility] [address] [address] [address] Florecita Castano Coronavirus NL63 Not detected Normal NOT DETECTED [facility] Comment on above: Performed By: #### R SPLUS #### [facility] [address] [place] [address] Dr. Florecita Castano Coronavirus OC43 Not detected Normal NOT DETECTED [facility] Comment on above: Performed By: #### R SPLUS #### [facility] [address] [address] [address] Florecita Castano Influenza A H1 2009 Not detected Normal NOT DETECTED [facility] Comment on above: Performed By: #### R SPLUS #### [facility] [address] [place] [address] Dr. Florecita Castano Influenza A H3 Detected Abnormal NOT DETECTED [facility] Comment on above: Performed By: #### R SPLUS #### [facility] [address] [place] [address] Dr. Florecita Castano Influenza B Not detected Normal NOT DETECTED The [facility] Comment on above: Performed By: #### R SPLUS #### [facility] [address] [place] [address] Dr. Florecita Castano Metapneumovirus Not detected Normal NOT DETECTED [facility] Comment on above: Performed By: #### R SPLUS #### [facility] [address] [place] [address] Dr. Florecita Castano Mycoplas. Pneumoniae Not detected Normal NOT DETECTED [facility] Comment on above: Performed By: #### R SPLUS #### [facility] [address] [place] [address] Dr. Florecita Castano Parainfluenza 1 Not detected Normal NOT DETECTED [facility] Comment on above: Performed By: #### R SPLUS #### [facility] [address] [place] [address] Dr. Florecita Castano Parainfluenza 2 Not detected Normal NOT DETECTED [facility] Comment on above: Performed By: #### R SPLUS #### [facility] [address] [place] [address] Dr. Florecita Castano Parainfluenza 3 Not detected Normal NOT DETECTED [facility] Comment on above: Performed By: #### R SPLUS #### [facility] [address] [place] [address] Dr. Florecita Castano Parainfluenza 4 Not detected Normal NOT DETECTED [facility] Comment on above: Performed By: #### R SPLUS #### [facility] [address] [place] [address] Dr. Florecita Castano Rhino/Enterovirus Not detected Normal NOT DETECTED [facility] Comment on above: Performed By: #### R SPLUS #### [facility] [address] [place] [address] Dr. Florecita Castano RP2 Header 1 RESPIRATORY PANEL: VIRUSES Normal [facility] Comment on above: Performed By: #### R SPLUS #### [facility] [address] [place] [address] Dr. Florecita Castano RP2 Header 2 RESPIRATORY PANEL: BACTERIA Normal [facility] Comment on above: Performed By: #### R SPLUS #### [facility] [address] [place] [address] Dr. Florecita Castano RSV Not detected Normal NOT DETECTED [facility] Comment on above: Performed By: #### R SPLUS #### [facility] [address] [place] [address] Dr. Florecita Castano SARS-CoV-2 (COVID-19) RNA ANTONIO+probe Ql (Unsp spec) Not detected Normal NOT DETECTED [facility] Comment on above: Performed By: #### R SPLUS #### [facility] [address] [place] [address] Dr. Florecita Castano XR CHEST 2 Von 10-16-2021 XR CHEST 2 V EXAMINATION: XR CHEST 2 V HISTORY: Acute upper respiratory infection COMPARISON: No relevant comparison available. FINDINGS: LUNGS: Hyperexpanded lungs. No appreciable infiltrates or mass. VASCULATURE: No increased pulmonary vasculature. PLEURA: No pneumothorax, effusion, or pleural thickening. CARDIAC: No cardiomegaly or cardiac silhouette abnormality. MEDIASTINUM: No visible mass or adenopathy. BONES: No fracture or visible bone lesion. OTHER: Negative. IMPRESSION: 1. No acute cardiopulmonary process. 2. Hyperexpanded lungs; mild COPD versus exaggerated inspiratory effort. Electronically authenticated by: YOJANA ZINATHALYALMA Date: 2021-10-16 16:51 Normal [facility] Covid-19 PCR ([facility])on 07-08 SARS-CoV-2 (COVID-19) RNA ANTONIO+probe Ql (Unsp spec) Not detected Normal NOT DETECTED [facility] Comment on above: Result Comment: This test is not yet approved or cleared by the [place] FDA. When there are no FDA-approved or cleared tests available, and other criteria are met, FDA can make tests available under an emergency access mechanism called an Emergency Use Authorization (EUA). The EUA for this test is supported by the [place] of Health and Human Service's (HHS's) declaration that circumstances exist to justify the emergency use of in vitro diagnostics for the detection and/or diagnosis of the virus that causes COVID-19. This EUA will remain in effect (meaning this test can be used) for the duration of the COVID-19 declaration justifying emergency of IVDs, unless it is terminated or revoked by FDA (after which the test may no longer be used). When diagnostic testing is negative, the possibility of a false negative should be considered in the context of a patient's recent exposures and the presence of clinical signs and symptoms consistent with SARS-CoV-2. Performed By: #### C VDTB #### [facility] [address] [place] [address] Dr. Florecita Castano CBC AUTO DIFFon 04-11-2021 BASO # 0.0 103/ul Normal 0.0-0.1 [facility] Comment on above: Performed By: #### C BC #### [facility] [address] [place] [address] Dr. Florecita Castano Basophils/100 WBC (Bld) 0.3 % Normal 0.2-2.0 [facility] Comment on above: Performed By: #### C BC #### [facility] [address] [place] [address] Dr. Florecita Castano EO # 0.1 103/ul Normal 0.0-0.7 [facility] Comment on above: Performed By: #### C BC #### [facility] [address] [place] [address] Dr. Florecita Castano Eosinophils/100 WBC (Bld) 2.1 % Normal 0.9-7.0 [facility] Comment on above: Performed By: #### C BC #### [facility] [address] [place] [address] Dr. Florecita Castano Erythrocyte distribution width (RBC) [Ratio] 12.8 % Normal 11.0-15.0 [facility] Comment on above: Performed By: #### C BC #### [facility] [address] [place] [address] Dr. Florecita Castano Hematocrit (Bld) [Volume fraction] 41.8 % Normal 36.0-48.0 [facility] Comment on above: Performed By: #### C BC #### [facility] [address] [place] [address] Dr. Florecita Castano Hemoglobin (Bld) [Mass/Vol] 13.5 g/dL Normal 12.0-16.0 [facility] Comment on above: Performed By: #### C BC #### [facility] [address] [place] [address] Dr. Florecita Castano IG # 0.02 10e3/ul Normal 0.00-0.03 [facility] Comment on above: Performed By: #### C BC #### [facility] [address] [place] [address] Dr. Florecita Castano IG % 0.3 % Normal 0.0-0.5 [facility] Comment on above: Performed By: #### C BC #### [facility] [address] [place] [address] Dr. Florecita Castano LYMPH # 2.5 103/ul Normal 1.2-3.8 [facility] Comment on above: Performed By: #### C BC #### [facility] [address] [place] [address] Dr. Florecita Castano Lymphocytes/100 WBC (Bld) 39.6 % Normal 20.5-60.0 [facility] Comment on above: Performed By: #### C BC #### [facility] [address] [place] [address] Dr. Florecita Castano MANUAL DIFF REQ NO Normal [facility] Comment on above: Performed By: #### C BC #### [facility] [address] [place] [address] Dr. Florecita Castano MCH (RBC) [Entitic mass] 30.4 pg Normal 26.7-34.0 [facility] Comment on above: Performed By: #### C BC #### [facility] [address] [place] [address] Dr. Florecita Castano MCHC (RBC) [Mass/Vol] 32.3 g/dL Normal 29.9-35.2 [facility] Comment on above: Performed By: #### C BC #### [facility] [address] [place] [address] Dr. Florecita Castano MCV (RBC) [Entitic vol] 94.1 fL Normal 81.0-99.0 [facility] Comment on above: Performed By: #### C BC #### [facility] [address] [place] [address] Dr. Florecita Castano MONO # 0.4 103/ul Normal 0.3-0.8 [facility] Comment on above: Performed By: #### C BC #### [facility] [address] [place] [address] Dr. Florecita Castano Monocytes/100 WBC (Bld) 5.9 % Normal 1.7-12.0 [facility] Comment on above: Performed By: #### C BC #### [facility] [address] [place] [address] Dr. Florecita Castano NEUT # 3.3 103/ul Normal 1.4-6.5 [facility] Comment on above: Performed By: #### C BC #### [facility] [address] [place] [address] Dr. Florecita Castano Neutrophils/100 WBC (Bld) 51.8 % Normal 43.0-75.0 [facility] Comment on above: Performed By: #### C BC #### [facility] [address] [address] [address] Florecita Castano Platelet mean volume (Bld) [Entitic vol] 10.2 fL Normal 9.5-13.5 [facility] Comment on above: Performed By: #### C BC #### [facility] [address] [address] [address] Florecita Castano PLT 197 103/ul Normal 150-450 [facility] Comment on above: Performed By: #### C BC #### [facility] [address] [place] [address] Dr. Florecita Castano RBC 4.44 106/ul Normal 4.20-5.40 [facility] Comment on above: Performed By: #### C BC #### [facility] [address] [place] [address] Dr. Florecita Castano WBC 6.3 103/ul Normal 4.0-11.0 [facility] Comment on above: Performed By: #### C BC #### [facility] [address] [place] [address] Dr. Florecita Castano LIPID PROFILEon 04-11-2021 CHOL-HDL RATIO NORM SEE BELOW Normal [facility] Comment on above: Result Comment: 3.3 - 4.4 LOW RISK 4.4 - 7.1 AVERAGE RISK 7.1 - 11.0 MODERATE RISK >11.0 HIGH RISK Performed By: #### C MP, TSH, LIPID #### [facility] [address] [place] [address] Dr. Florecita Castano Cholesterol [Mass/Vol] 165 mg/dL Normal <=200 Th [facility] Comment on above: Performed By: #### C MP, TSH, LIPID #### [facility] [address] [place] [address] Dr. Florecita Castano Cholesterol in HDL [Mass/Vol] 80 mg/dL Normal [facility] Comment on above: Performed By: #### C MP, TSH, LIPID #### [facility] [address] [place] [address] Dr. Florecita Castano Cholesterol in LDL [Mass/Vol] 79.0 mg/dL Normal [facility] Comment on above: Performed By: #### C MP, TSH, LIPID #### [facility] [address] [address] [address] Florecita Castano Cholesterol.total/Choles terol in HDL [Mass ratio] 2.1 {ratio} Normal [facility] Comment on above: Performed By: #### C MP, TSH, LIPID #### [facility] [address] [address] [address] Florecita Castano HDL NORMAL > or = 60 mg/dl - LOW CARDIOVASCULAR RISK <40 mg/dl - HIGH CARDIOVASCULAR RISK Normal [facility] Comment on above: Performed By: #### C MP, TSH, LIPID #### [facility] [address] [place] [address] Dr. Florecita Castano LDL CALC NORMAL SEE BELOW Normal [facility] Comment on above: Result Comment: <100 mg/dl OPTIMAL 100 - 129 mg/dl NEAR OR ABOVE OPTIMAL 130 - 159 mg/dl BORDERLINE HIGH 160 - 189 mg/dl HIGH >190 mg/dl VERY HIGH Performed By: #### C MP, TSH, LIPID #### [facility] [address] [place] [address] Dr. Florecita Castano Triglyceride [Mass/Vol] 30 mg/dL Normal <=150 T [facility] Comment on above: Performed By: #### C MP, TSH, LIPID #### [facility] [address] [place] [address] Dr. Florecita Castano VLDL CALC 6.0 mg/dL Normal [facility] Comment on above: Performed By: #### C MP, TSH, LIPID #### [facility] [address] [place] [address] Dr. Florecita Castano MICROALBUMIN, RAND URon -0 mALB <1.3 Normal <=30.0 [facility] Comment on above: Performed By: #### M ALBR #### [facility] [address] [place] [address] Dr. Florecita Castano PROF 14(COMP METB)on 021 Albumin [Mass/Vol] 3.7 g/dL Normal 3.5-5.0 [facility] Comment on above: Performed By: #### C MP, TSH, LIPID #### [facility] [address] [address] [address] Florecita Castano Albumin/Globulin [Mass ratio] 1.1 {ratio} Normal [facility] Comment on above: Performed By: #### C MP, TSH, LIPID #### [facility] [address] [address] [address] Florecita Castano ALP [Catalytic activity/Vol] 59 U/L Normal 38-126 [facility] Comment on above: Performed By: #### C MP, TSH, LIPID #### [facility] [address] [place] [address] Dr. Florecita Castano ALT [Catalytic activity/Vol] 19 U/L Normal 9-52 [facility] Comment on above: Performed By: #### C MP, TSH, LIPID #### [facility] [address] [address] [address] Florecita Castano Anion gap [Moles/Vol] 10.7 mmol/L Normal [facility] Comment on above: Performed By: #### C MP, TSH, LIPID #### [facility] [address] [place] [address] Dr. Florecita Castano AST [Catalytic activity/Vol] 19 U/L Normal 14-36 [facility] Comment on above: Performed By: #### C MP, TSH, LIPID #### [facility] [address] [address] [address] Florecita Castano Bilirubin [Mass/Vol] 0.7 mg/dL Normal 0.2-1.3 [facility] Comment on above: Performed By: #### C MP, TSH, LIPID #### [facility] [address] [place] [address] Dr. Florecita Castano Calcium [Mass/Vol] 9.1 mg/dL Normal 8.4-10.2 [facility] Comment on above: Performed By: #### C MP, TSH, LIPID #### [facility] [address] [place] [address] Dr. Florecita Castano Chloride [Moles/Vol] 106 mmol/L Normal 98-107 [facility] Comment on above: Performed By: #### C MP, TSH, LIPID #### [facility] [address] [place] [address] Dr. Florecita Castano CO2 [Moles/Vol] 28.7 mmol/L Normal 22.0-30.0 [facility] Comment on above: Performed By: #### C MP, TSH, LIPID #### [facility] [address] [place] [address] Dr. Florecita Castano Creatinine [Mass/Vol] 0.77 mg/dL Normal 0.52-1.04 [facility] Comment on above: Performed By: #### C MP, TSH, LIPID #### [facility] [address] [place] [address] Dr. Florecita Castano EGFR-AF MALAGASY >60 Normal >=60 [facility] Comment on above: Performed By: #### C MP, TSH, LIPID #### [facility] [address] [place] [address] Dr. Florecita Castano EGFR-NON AF MALAGASY >60 Normal >=60 [facility] Comment on above: Performed By: #### C MP, TSH, LIPID #### [facility] [address] [place] [address] Dr. Florecita Castano Globulin (S) [Mass/Vol] 3.3 g/dL Normal [facility] Comment on above: Performed By: #### C MP, TSH, LIPID #### [facility] [address] [place] [address] Dr. Florecita Castano Glucose [Mass/Vol] 93 mg/dL Normal 74-106 [facility] Comment on above: Performed By: #### C MP, TSH, LIPID #### [facility] [address] [place] [address] Dr. Florecita Castano Potassium [Moles/Vol] 4.4 mmol/L Normal 3.4-5.0 [facility] Comment on above: Performed By: #### C MP, TSH, LIPID #### [facility] [address] [place] [address] Dr. Florecita Castano Protein [Mass/Vol] 7.0 g/dL Normal 6.1-8.2 [facility] Comment on above: Performed By: #### C MP, TSH, LIPID #### [facility] [address] [place] [address] Dr. Florecita Castano Sodium [Moles/Vol] 141 mmol/L Normal 137-145 [facility] Comment on above: Performed By: #### C MP, TSH, LIPID #### [facility] [address] [place] [address] Dr. Florecita Castano Urea nitrogen [Mass/Vol] 17.0 mg/dL Normal 7.0-17.0 [facility] Comment on above: Performed By: #### C MP, TSH, LIPID #### [facility] [address] [place] [address] Dr. Florecita Castano Urea nitrogen/Creatinine [Mass ratio] 22.1 mg/mg Normal [facility] Comment on above: Performed By: #### C MP, TSH, LIPID #### [facility] [address] [place] [address] Dr. Florecita Castano TSHon 04-11-2021 TSH 1.378 uIU/mL Normal 0.470-4.680 [facility] Comment on above: Performed By: #### C MP, TSH, LIPID #### [facility] [address] [place] [address] Dr. Florecita Castano TSH RANGE SEE BELOW Normal [facility] Comment on above: Result Comment: <0.3 4 UIU/ml HYPERTHYROID 0.34-5.60 UIU/ml EUTHYROID >5.60 UIU/ml HYPOTHYROID Performed By: #### C MP, TSH, LIPID #### [facility] [address] [place] [address] Dr. Florecita Castano Vital Signs Date Time Vital Sign Value Performing Clinician Facility 10-15-2024 10:26-0400 Body height 154.9 cm Erik GARCIA Work Phone: [facility] 10-15-2024 10:26-0400 Body mass index (BMI) [Ratio] 21.35 kg/m2 Erik Bonilla PA Work Phone: [facility] 10-15-2024 10:26-0400 Body temperature 98.29 [degF] Erik Bonilla PA Work Phone: [facility] 10-15-2024 10:26-0400 Body weight 51.26 kg Erik Bonilla PA Work Phone: [facility] 10-15-2024 10:26-0400 Diastolic blood pressure 96 mm[Hg] Erik Bonilla PA Work Phone: [facility] 10-15-2024 10:26-0400 Heart rate 84 /min Erik Bonilla PA Work Phone: [facility] 10-15-2024 10:26-0400 SaO2% (BldA) [Mass fraction] 98 % Erik Bonilla PA Work Phone: [facility] 10-15-2024 10:26-0400 Systolic blood pressure 130 mm[Hg] Erik Bonilla PA Work Phone: [facility] 10-09-2024 10:25-0400 Diastolic blood pressure 102 mm[Hg] Ramakrishna Umnazor DO Work Phone: [facility] 10-09-2024 10:25-0400 Systolic blood pressure 161 mm[Hg] Ramakrishna Umanzor DO Work Phone: [facility] 08-05-2024 14:36-0500 Body height 154.9 cm Erik Bonilla PA Work Phone: [facility] 08-05-2024 14:36-0500 Body mass index (BMI) [Ratio] 21.54 kg/m2 Erik Bonilla PA Work Phone: [facility] 08-05-2024 14:36-0500 Body temperature 96.91 [degF] Erik Bonilla PA Work Phone: [facility] 08-05-2024 14:36-0500 Body weight 51.71 kg Erik Bonilla PA Work Phone: [facility] 08-05-2024 14:36-0500 Diastolic blood pressure 90 mm[Hg] Erik Bonilla PA Work Phone: [facility] 08-05-2024 14:36-0500 Heart rate 80 /min Erik Bonilla PA Work Phone: [facility] 08-05-2024 14:36-0500 SaO2% (BldA) [Mass fraction] 97 % Erik Bonilla PA Work Phone: [facility] 08-05-2024 14:36-0500 Systolic blood pressure 124 mm[Hg] Erik Bonilla PA Work Phone: [facility] 07-22-2024 10:23-0500 Body height 154.94 cm Ramakrishna Umanzor DO Work Phone: [facility] 07-22-2024 10:23-0500 Body mass index (BMI) [Ratio] 20.7 kg/m2 Ramakrishna Clineer DO Work Phone: [facility] 07-22-2024 10:23-0500 Body weight 49.89 kg Ramakrishna Umanzor DO Work Phone: [facility] 04-09-2024 09:24-0400 Body height 154.94 cm DO Ramakrishna Umanzor Work Phone: [facility] 04-09-2024 09:24-0400 Body mass index (BMI) [Ratio] 20.4 kg/m2 DO Ramakrishna Go Work Phone: [facility] 04-09-2024 09:24-0400 Body weight 48.98 kg DO Ramakrishna Clineer Work Phone: [facility] 04-09-2024 09:24-0400 Diastolic blood pressure 93 mm[Hg] DO Ramakrishna Clineer Work Phone: [facility] 04-09-2024 09:24-0400 Heart rate 77 /min DO Ramakrishna Umanzor Work Phone: [facility] 04-09-2024 09:24-0400 Systolic blood pressure 144 mm[Hg] DO Ramakrishna Clineer Work Phone: [facility] 03-03-2024 10:41-0400 Body height 154.9 cm Samantha Mendes DO Work Phone: [facility] 03-03-2024 10:41-0400 Body mass index (BMI) [Ratio] 20.41 kg/m2 Samantha Rinkes DO Work Phone: [facility] 03-03-2024 10:41-0400 Body weight 48.99 kg Samantha Rinkes DO Work Phone: [facility] 03-03-2024 10:41-0400 Diastolic blood pressure 90 mm[Hg] Samantha Rinkes DO Work Phone: [facility] 03-03-2024 10:41-0400 Systolic blood pressure 124 mm[Hg] Samantha Rinkes DO Work Phone: [facility] 02-19-2024 09:48-0400 Blood Pressure Location Jo Ann Lue [facility] 02-19-2024 09:48-0400 Diastolic blood pressure 88 mm[Hg] Jo Ann Lue [facility] 02-19-2024 09:48-0400 Heart rate 85 /min Jo Ann Lue [facility] 02-19-2024 09:48-0400 Respiratory rate 16 /min Jo Ann Lue [facility] 02-19-2024 09:48-0400 Systolic blood pressure 130 mm[Hg] Jo Ann Lue [facility] 01-22-2024 13:01-0400 Body height 154.94 cm DO Ramakrishna Go Work Phone: [facility] 01-22-2024 12:40-0400 Body temperature 98.3 [degF] DO Ramakrishna Go Work Phone: [facility] 01-22-2024 12:40-0400 Diastolic blood pressure 77 mm[Hg] DO Ramakrishna Go Work Phone: [facility] 01-22-2024 12:40-0400 Heart rate 74 /min DO Ramakrishna Go Work Phone: [facility] 01-22-2024 12:40-0400 Respiratory rate 20 /min DO Ramakrishna Go Work Phone: [facility] 01-22-2024 12:40-0400 SaO2% (BldA) [Mass fraction] 97 % DO Ramakrishna Go Work Phone: [facility] 01-22-2024 12:40-0400 Systolic blood pressure 146 mm[Hg] DO Ramakrishna Go Work Phone: [facility] 01-22-2024 05:56-0400 Body weight 49.9 kg DO Ramakrishna Go Work Phone: 5(109)815-305971 [place] [address] 01-21-2024 12:30-0400 Diastolic blood pressure 101 mm[Hg] DO Ramakrishna Clineer Work Phone: [facility] 01-21-2024 12:30-0400 Heart rate 83 /min DO Ramakrishna Clineer Work Phone: [facility] 01-21-2024 12:30-0400 Respiratory rate 20 /min DO Ramakrishna Clineer Work Phone: [facility] 01-21-2024 12:30-0400 SaO2% (BldA) [Mass fraction] 97 % DO Ramakrishna Clineer Work Phone: [facility] 01-21-2024 12:30-0400 Systolic blood pressure 168 mm[Hg] DO Ramakrishna Go Work Phone: [facility] 01-21-2024 11:00-0400 Body temperature 97 [degF] DO Ramakrishna Go Work Phone: [facility] 01-21-2024 10:24-0400 Inhaled oxygen flow rate 8 L/min DO Ramakrishna Clineer Work Phone: [facility] 01-21-2024 07:26-0400 Body height 154.94 cm DO Ramakrishna Go Work Phone: [facility] 01-21-2024 07:26-0400 Body mass index (BMI) [Ratio] 20.8 kg/m2 DO Ramakrishna Go Work Phone: 2(954)058-798371 [place] [address] 01-21-2024 07:26-0400 Body weight 50 kg DO Ramakrishna Go Work Phone: 4(226)096-926124 [address] 01-20-2024 08:29-0400 Body height 154.94 cm DO Ramakrishna Go Work Phone: 6(379)277-138871 [place] [address] 01-20-2024 08:29-0400 Body mass index (BMI) [Ratio] 20.5 kg/m2 DO Ramakrishna Go Work Phone: 1(414)091-868171 [place] [address] 01-20-2024 08:29-0400 Body weight 49.44 kg DO Ramakrishna Go Work Phone: 8(582)786-471124 [address] 12-31-2023 11:24-0400 Diastolic blood pressure 80 mm[Hg] DO Ramakrishna Go Work Phone: 7(007)306-707071 [place] [address] 12-31-2023 11:24-0400 Heart rate 78 /min DO Ramakrishna Go Work Phone: 3(578)681-655171 [place] [address] 12-31-2023 11:24-0400 Respiratory rate 18 /min DO Ramakrishna Go Work Phone: 1(006)318-706771 [place] [address] 12-31-2023 11:24-0400 SaO2% (BldA) [Mass fraction] 96 % DO Ramakrishna Go Work Phone: [facility] 12-31-2023 11:24-0400 Systolic blood pressure 129 mm[Hg] DO Ramakrishna Go Work Phone: [facility] 12-31-2023 10:00-0400 Body height 154.94 cm DO Ramakrishna Go Work Phone: [facility] 12-31-2023 10:00-0400 Body weight 50.8 kg DO Ramakrishna Go Work Phone: [facility] 12-18-2023 10:27-0400 Body height 153.67 cm DO Ramakrishna Go Work Phone: [facility] 12-18-2023 10:27-0400 Body mass index (BMI) [Ratio] 22.1 kg/m2 DO Ramakrishna Umanzor Work Phone: [facility] 12-18-2023 10:27-0400 Body weight 52.33 kg DO Ramakrishna Umanzor Work Phone: [facility] 08-14-2023 10:19-0500 Blood Pressure Location Jo Ann Lue [facility] 08-14-2023 10:19-0500 Diastolic blood pressure 84 mm[Hg] Jo Ann Lue [facility] 08-14-2023 10:19-0500 Systolic blood pressure 118 mm[Hg] Jo Ann Lue [facility] 07-19-2023 09:45-0500 Body height 153.67 cm Marek Nye II Other [facility] 07-19-2023 09:45-0500 Body mass index (BMI) [Ratio] 22.16 kg/m2 Marek Nye II Other [employer] [facility] [employer] Other 07-19-2023 09:45-0500 Body weight 52.35 kg Marek Nye II Other [employer] [facility] [employer] Other 07-19-2023 09:45-0500 Body weight 52.34 kg [facility] 04-18-2023 09:30-0400 Body height 153.67 cm Marek Nikolai II Other [employer] [facility] [employer] Other 04-18-2023 09:30-0400 Body mass index (BMI) [Ratio] 22.09 kg/m2 Marek Nikolai II Other [email or web address] Other 04-18-2023 09:30-0400 Body weight 52.16 kg Marek Chiu II Other [facility] [employer] Other 02-27-2023 10:45-0400 Body height 153.67 cm Maia Luther Other [email or web address] Other 02-27-2023 10:45-0400 Body mass index (BMI) [Ratio] 21.9 kg/m2 Maia Luther Other [email or web address] Other 02-27-2023 10:45-0400 Body weight 51.71 kg Maia Cassidyarney Other [place] [employer] Other 02-06-2023 09:20-0400 Blood Pressure Location Jo Ann Lue [facility] 02-06-2023 09:20-0400 Diastolic blood pressure 94 mm[Hg] Jo Ann Lue [facility] 02-06-2023 09:20-0400 Heart rate 86 /min Jo Ann Lue [facility] 02-06-2023 09:20-0400 Systolic blood pressure 138 mm[Hg] Jo Ann Lue [facility] 04-12-2021 12:00-0400 Body height 153.67 cm Jerry Carroll Other [email or web address] Other 04-12-2021 12:00-0400 Body mass index (BMI) [Ratio] 21.9 kg/m2 Jerry Carroll Other [email or web address] Other 04-12-2021 12:00-0400 Body weight 51.71 kg Jerry Carroll Other [email or web address] Other Encounters Encounter Date Encounter Type Care Provider Facility Start: 10-15-2024 End: 10-15-2024 Bamboo flowsheet Ramakrishna Umanzor DO Work Phone: [facility] Start: 10-15-2024 End: 10-15-2024 Bamboo flowsheet Ramakrishna Umanzor DO Work Phone: [facility] Start: 10-15-2024 End: 10-15-2024 Assay of hemosiderin, quant Erik GARCIA Work Phone: [facility] Work Phone: Start: 10-15-2024 End: 10-15-2024 Patient encounter procedure Erik GARCIA Work Phone: [facility] 230 Comment on above: Gastro-esophageal re flux disease without esophagitis (Primary Dx); Routine general medical examination at health care facility; Screening for deficiency anemia; Screening for diabetes mellitus (DM); Screening for cardiovascular condition; Atrophy of vagina; Acquired hypothyroidism (CMS/HCC); Current smoker; Essential hypertension (CMS/HCC); Primary insomnia Start: 10-12-2024 End: 10-12-2024 Telephone encounter Erik GARCIA Work Phone: [facility] 230 Comment on above: Appointment Request Start: 10-09-2024 End: 10-09-2024 ambulatory Ramakrishna Umanzor DO Work Phone: [facility] Work Phone: Start: 10-09-2024 End: 10-09-2024 Patient encounter procedure Ramakrishna Umanzor DO Work Phone: [facility] Work Phone: Start: 08-05-2024 End: 08-05-2024 Office outpatient visit 25 minutes Erik GARCIA Work Phone: [facility] 230 Comment on above: Acute non-recurrent maxillary sinusitis (Primary Dx); Primary insomnia; Herpes zoster without complication Start: 08-05-2024 End: 08-05-2024 ambulatory ERIK BONILLA Not Available Start: 08-05-2024 End: 08-05-2024 Bamboo flowsheet Erik Bonilla PA Work Phone: [facility] Start: 08-05-2024 End: 08-05-2024 Bamboo flowsheet Erik Bonilla PA Work Phone: [facility] Start: 07-22-2024 End: 07-22-2024 ambulatory Ramakrishna Clineer DO Work Phone: [facility] Work Phone: Start: 07-22-2024 End: 07-22-2024 Patient encounter procedure Ramakrishna Clineer DO Work Phone: [facility] Work Phone: Start: 07-22-2024 End: 07-22-2024 Patient encounter procedure Ramakrishna Clineer DO Work Phone: [facility] [place] [facility] Start: 07-22-2024 End: 07-22-2024 ambulatory Ramakrishna Clineer DO Work Phone: [facility] Work Phone: Start: 04-09-2024 End: 04-09-2024 ambulatory DO Ramakrishna Clineer Work Phone: [facility] Work Phone: Start: 04-09-2024 End: 04-09-2024 Patient encounter procedure DO Ramakrishna Clineer Work Phone: [facility] G[facility]ology Work Phone: Start: 03-13-2024 End: 03-13-2024 ambulatory DO Ramakrishna Go Work Phone: [facility] Work Phone: Start: 03-13-2024 End: 03-13-2024 Patient encounter procedure DO Ramakrishna Clineer Work Phone: [facility] [place] [facility] Work Phone: Start: 03-03-2024 End: 03-03-2024 Bamboo flowsheet Samantha E Rinkes DO Work Phone: [facility] Start: 03-03-2024 End: 03-03-2024 Bamboo flowsheet Samantha E Rinkes DO Work Phone: [facility] Start: 03-03-2024 End: 03-03-2024 Office outpatient visit 25 minutes Samantha E Rinkes DO Work Phone: [facility] Comment on above: Vaginal atrophy; Encounter for screening mammogram for breast cancer Start: 03-03-2024 End: 03-03-2024 ambulatory SAMANTHA MENDES Not Available Start: 02-19-2024 End: 02-19-2024 ambulatory Jo Ann Ann Facility:[facility] Start: 02-19-2024 End: 02-19-2024 Patient encounter procedure Jo Ann Ann [facility] Start: 02-03-2024 End: 02-03-2024 ambulatory DO Ramakrishna Umanzor Work Phone: [facility] Work Phone: Start: 02-03-2024 End: 02-03-2024 Patient encounter procedure DO Ramakrishna Umanzor Work Phone: [facility] Work Phone: Start: 01-21-2024 Non-patient / Non-visit DO Mindy Umanzor Work Phone: [facility] Work Phone: Start: 01-21-2024 End: 01-22-2024 Admission to same day surgery center DO Ramakrishna Umanzor Work Phone: [facility] [place] Start: 01-21-2024 End: 01-22-2024 ambulatory DO Ramakrishna Umanzor Work Phone: [facility] Work Phone: Start: 01-20-2024 End: 01-20-2024 Patient encounter procedure DO Ramakrishna Umanzor Work Phone: [facility] [place] [facility] Work Phone: Start: 01-20-2024 End: 01-20-2024 Discharged Recurring DO Ramakrishna Umanzor Work Phone: [facility]-Physical Therapy [place] Start: 01-20-2024 Registered Recurring DO Ramakrishna thompson Work Phone: [facility] [place] Start: 01-20-2024 End: 01-20-2024 ambulatory DO Ramakrishna Umanzor Work Phone: [facility] Work Phone: Start: 01-20-2024 Encounter for other preprocedural examination Mikey Hooper [facility] Start: 01-13-2024 End: 01-13-2024 ambulatory DO Ramakrishna Umanzor Work Phone: [facility] Work Phone: Start: 01-13-2024 End: 01-13-2024 Patient encounter procedure DO Ramakrishna Umanzor Work Phone: [facility] Work Phone: Start: 01-06-2024 End: 01-06-2024 ambulatory NIKOLAS DARDEN Not Available Start: 01-03-2024 End: 01-03-2024 Patient encounter procedure DO Ramakrishna Umanzor Work Phone: [facility]-Pre-Surgical Testing Work Phone: Start: 01-03-2024 End: 01-03-2024 ambulatory Ramakrishna Go Facility:[facility] Start: 01-03-2024 Encounter for preprocedural laboratory examination Mikey Hooper [facility] Start: 12-31-2023 Non-patient / Non-visit DO Mindy Umanzor Work Phone: [facility] Work Phone: Start: 12-31-2023 End: 12-31-2023 Admission to same day surgery center DO Ramakrishna Umanzor Work Phone: [facility]-Digestive Health Work Phone: Start: 12-31-2023 End: 12-31-2023 ambulatory DO Ramakrishna Umanzor Work Phone: [facility] Work Phone: Start: 12-28-2023 End: 12-28-2023 Patient encounter procedure DO Ramakrishna Umanzor Work Phone: [facility]Center for Breast Care Work Phone: Start: 12-28-2023 End: 12-28-2023 ambulatory DO Ramakrishna Umanzor Work Phone: [facility] Work Phone: Start: 12-25-2023 End: 12-25-2023 ambulatory DO Ramakrishna Umanzor Work Phone: [facility] Work Phone: Start: 12-25-2023 End: 12-25-2023 Patient encounter procedure DO Ramakrishna Umanzor Work Phone: [facility] Work Phone: Start: 12-18-2023 End: 12-18-2023 ambulatory DO Ramakrishna Umanzor Work Phone: [facility] Work Phone: Start: 12-18-2023 End: 12-18-2023 Patient encounter procedure DO Ramakrishna Umanzor Work Phone: [facility] [place] [facility] Work Phone: Start: 12-16-2023 End: 12-16-2023 ambulatory ERIK BONILLA Not Available Start: 11-29-2023 End: 11-29-2023 Patient encounter procedure DO Ramakrishna Umanzor Work Phone: [facility]Lab [facility] [place] Work Phone: Start: 11-29-2023 End: 11-29-2023 ambulatory DO Ramakrishna Umanzor Work Phone: [facility] Work Phone: Start: 09-25-2023 End: 09-25-2023 ambulatory [facility] Work Phone: Start: 09-25-2023 End: 09-25-2023 Patient encounter procedure [facility] [place] [facility] Work Phone: Start: 08-14-2023 End: 08-14-2023 ambulatory [facility] Start: 08-14-2023 End: 08-14-2023 Patient encounter procedure Jo Ann Ann [facility] Start: 07-19-2023 End: 07-19-2023 ambulatory Marek Nye II Other [email or web address] Other Start: 07-19-2023 Office outpatient vi sit 15 minutes Marek Nye II [facility] [place] [facility] Start: 07-19-2023 End: 07-19-2023 Patient encounter procedure [facility] Work Phone: Start: 04-18-2023 End: 04-18-2023 ambulatory Marek Nye II Other [email or web address] Other Start: 04-18-2023 Office outpatient vi sit 25 minutes Marek Nye II [facility] [place] [facility] Start: 02-27-2023 End: 02-27-2023 ambulatory Maia Sloan Other [email or web address] Other Start: 02-27-2023 Office outpatient vi sit 15 minutes Maia Sloan [facility] [place] [facility] Start: 02-06-2023 End: 02-06-2023 Patient encounter procedure Jo Ann Ann [facility] Start: 01-31-2023 End: 01-31-2023 ambulatory DO Ramakrishna Clineer Work Phone: [facility] Work Phone: Start: 01-31-2023 End: 01-31-2023 Patient encounter procedure DO Ramakrishna Umanzor Work Phone: [facility] [place] Work Phone: Start: 12-24-2022 End: 12-24-2022 Patient encounter procedure DO Ramakrishna Umanzor Work Phone: [facility] Work Phone: Start: 11-28-2022 End: 11-28-2022 Patient encounter procedure DO Ramakrishna Umnazor Work Phone: [facility] [place] [facility] Start: 04-09-2022 End: 04-09-2022 ambulatory Jerry Carroll Other [email or web address] Other Start: 04-09-2022 Telephone encounter Jerry houser [facility] Start: 10-24-[address] DOCTOR REILLY Facility :[facility] Start: 10-16-2021 End: 10-17-[address] RAMAKRISHNA UMANZOR Facility:[facility] Start: 07-26-2021 End: 07-26-2021 ambulatory Jerry Carroll Other [email or web address] Other Start: 07-26-2021 Telephone encounter Jerry houser [facility] Start: 07-17-2021 End: 07-17-[address] RAMAKRISHNA UMANZOR Facility:[facility] Start: 04-12-2021 Office outpatient vi sit 15 minutes Jerry Carroll [facility] Start: 04-11-2021 End: 04-12-2021 ambulatory JARVIS CERVANTES Facility:[facility] Procedures Date Procedure Procedure Detail Performing Clinician Start: 07-22-2024 Plain x-ray of pelvi s and lower extremity Ramakrishna Umanzor DO Work Phone: Start: 01-21-2024 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 DO Ramakrishna Umanzor Work Phone: Start: 01-21-2024 Plain X-ray of left hip DO Ramakrishna Umanzor Work Phone: Start: 12-31-2023 Injection of local anesthetic into sacroiliac joint DO Ramakrishna Umanzor Work Phone: Start: 12-30-2023 Mammography Samantha roy DO Work Phone: Start: 12-28-2023 Screening mammograph y of bilateral breasts DO Ramakrishna Umanzor [facility] Phone: Start: 11-29-2023 Blood culture for ba cteria, including anaerobic screen DO Ramakrishna Umanzor Work Phone: Start: 01-31-2023 Ultrasonography of limb DO Ramakrishna Umanzor [facility] Phone: Start: 12-24-2022 Screening mammograph y of bilateral breasts DO Ramakrishna Umanzor Work Phone: Start: 11-28-2022 Plain x-ray of pelvi s and lower extremity DO Ramakrishna Umanzor [facility] Phone: Start: 02-10-2019 Colonoscopy Samantha roy DO Work Phone: Start: 07-08-2013 Colonoscopy Jo Ann Lue Start: 07-08-2008 ft (qualifier value) Ka thy Lue Start: 07-08-1986 Cholecystectomy Jo Ann L ue Start: 07-08-1959 Tonsillectomy Jo Ann Lue Fallopian tube excision Elisa y Lue Insertion of hip prosthesis Jo Ann Lue Plan of Treatment Date Care Activity Detail Author Start: 02-10-2029 Screening for malign ant neoplasm of colon [facility] Start: 03-16-2025 End: 03-16-2025 Patient encounter procedure 03/16/2025 10:30 AM EDT Office Visit [facility] [address] [place] [phone] RichaSamantha france DO [address] [place] [address] [facility] Start: 12-29-2024 Screening for malign ant neoplasm of breast Mammogram [facility] Start: 10-15-2024 End: 10-15-2025 CBC W Auto Differential panel - Blood CBC and differential Lab Routine Routine general medical examination at health care facility Screening for deficiency anemia Screening for diabetes mellitus (DM) Screening for cardiovascular condition Atrophy of vagina Acquired hypothyroidism (CMS/HCC) Current smoker Gastro-esophageal reflux disease without esophagitis Essential hypertension (CMS/HCC) Expected: 10/15/2024 (Approximate), Expires: 10/15/2025 [facility] Work Phone: Comment on above: Expected: 10/15/2024 (Approximate), Expires: 10/15/2025 Start: 10-15-2024 End: 10-15-2025 Comprehensive metabolic 2000 panel - Serum or Plasma Comprehensive metabolic panel Lab Routine Routine general medical examination at health care facility Screening for deficiency anemia Screening for diabetes mellitus (DM) Screening for cardiovascular condition Atrophy of vagina Acquired hypothyroidism (CMS/HCC) Current smoker Gastro-esophageal reflux disease without esophagitis Essential hypertension (CMS/HCC) Expected: 10/15/2024 (Approximate), Expires: 10/15/2025 [facility] Comment on above: Expected: 10/15/2024 (Approximate), Expires: 10/15/2025 Start: 10-15-2024 End: 10-15-2025 Lipid 1996 panel - Serum or Plasma Lipid panel Lab Routine Routine general medical examination at health care facility Screening for deficiency anemia Screening for diabetes mellitus (DM) Screening for cardiovascular condition Atrophy of vagina Acquired hypothyroidism (CMS/HCC) Current smoker Gastro-esophageal reflux disease without esophagitis Essential hypertension (CMS/HCC) Expected: 10/15/2024 (Approximate), Expires: 10/15/2025 [facility] Comment on above: Expected: 10/15/2024 (Approximate), Expires: 10/15/2025 Start: 10-15-2024 End: 10-15-2025 Thyrotropin [Units/volume] in Serum or Plasma TSH Lab Routine Routine general medical examination at health care facility Screening for deficiency anemia Screening for diabetes mellitus (DM) Screening for cardiovascular condition Atrophy of vagina Acquired hypothyroidism (CMS/HCC) Current smoker Gastro-esophageal reflux disease without esophagitis Essential hypertension (CMS/HCC) Expected: 10/15/2024 (Approximate), Expires: 10/15/2025 [facility] Comment on above: Expected: 10/15/2024 (Approximate), Expires: 10/15/2025 Start: 10-15-2024 End: 10-15-2025 Thyroxine (T4) free [Mass/volume] in Serum or Plasma T4, free Lab Routine Routine general medical examination at health care facility Screening for deficiency anemia Screening for diabetes mellitus (DM) Screening for cardiovascular condition Atrophy of vagina Acquired hypothyroidism (CMS/HCC) Current smoker Gastro-esophageal reflux disease without esophagitis Essential hypertension (CMS/HCC) Expected: 10/15/2024 (Approximate), Expires: 10/15/2025 [facility] Comment on above: Expected: 10/15/2024 (Approximate), Expires: 10/15/2025 Start: 10-15-2024 End: 10-15-2024 Patient encounter procedure [facility] Comment on above: Arrived Start: 08-05-2024 End: 08-05-2024 Patient encounter procedure 08/05/2024 2:40 PM EST Office Visit [facility] [address] [place] [phone] Erik Bonilla PA [address] [place], [place] [id number] Arrived [facility] Comment on above: Arrived Start: 07-22-2024 Plain x-ray of pelvi s and lower extremity XR hip BI w [id number] [facility] Start: 07-22-2024 XR Pelvis and Hip - bilateral Views [facility] Start: 03-08-2024 Influenza vaccination Influenza Vacc ine (#1) [facility] Start: 03-03-2024 End: 03-03-2024 Patient encounter procedure 03/03/2024 10:30 AM EDT Office Visit [facility] [address] [place] [phone] Samantha Mendes, DO [address] [place] [address] Vaginal atrophy; Encounter for screening mammogram for breast cancer [facility] Comment on above: Vaginal atrophy; Encounter for screening mammogram for breast cancer Start: 01-23-2024 [facility] Start: 01-22-2024 [facility] Start: 01-21-2024 [facility] Start: 01-21-2024 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 OR Total Hip Arthro MIS/Revision (Left) [facility] Start: 01-21-2024 [facility] Start: 01-21-2024 [facility] Start: 01-21-2024 Plain X-ray of left hip XR low pelvis w/LT x-table hip [facility] Start: 01-21-2024 XR Hip - left GE 2 Views [facility] Start: 01-21-2024 Hospital admission [facility] Start: 01-21-2024 Physical therapy procedure [facility] Start: 01-21-2024 Referral to occupational therapist [facility] Start: 12-31-2023 [facility] Start: 12-28-2023 MG Breast - bilatera l Screening [facility] Start: 12-28-2023 Screening mammograph y of bilateral breasts MM screening mammo BI w/CAD [facility] Start: 11-29-2023 Bacteria identified in Blood by Culture [facility] Start: 1955 Screening for malign ant neoplasm of colon [facility] Patient Education [facility] Work Phone: Patient referral [facility] Work Phone: Immunizations Immunization Date Immunization Notes Care Provider Natali simon 04-26-2023 influenza virus vaccine, unspecified formulation Jo Ann Ann [facility] 04-26-2023 Influenza, Seasonal, Quadrivalent, Adjuvanted Samantha Mendes DO Work Phone: [facility] 04-26-2022 influenza virus vaccine, unspecified formulation Jo Ann Lue [facility] 04-26-2022 Influenza, Seasonal, Quadrivalent, Adjuvanted Samantha Rinkes DO Work Phone: [facility] 04-26-2022 pneumococcal polysaccharide vaccine, 23 valent Jo Ann Lue [facility] 05-18-2021 SARS-CoV-2 (COVID-19 ) mRNA BNT-162b2 vax Jo Ann Lue [facility] Comment on above: Result Comment: 2022: [id number] 05-01-2021 influenza virus vaccine, unspecified formulation Jo Ann Lue [facility] 05-01-2021 influenza, high dose seasonal, preservative-free Samantha Rinkes DO Work Phone: [facility] 05-01-2021 pneumococcal conjuga te vaccine, 13 valent Jo Ann Lue [facility] 05-01-2021 zoster vaccine recombinant Jo Ann Lue [facility] 09-27-2020 SARS-CoV-2 (COVID-19 ) mRNA BNT-162b2 vax Jo Ann Lue [facility] 09-05-2020 SARS-CoV-2 (COVID-19 ) mRNA BNT-162b2 vax Jo Ann Lue [facility] 04-21-2020 influenza, injectabl e, madin deidre canine kidney, preservative free Samantha Rinkes DO Work Phone: [facility] 12-23-2019 tetanus and diphther ia toxoids, adsorbed, preservative free, for adult use (2 Lf of tetanus toxoid and 2 Lf of diphtheria toxoid) Jo Ann Ann [facility] 12-23-2019 tetanus and diphther ia toxoids, adsorbed, preservative free, for adult use (5 Lf of tetanus toxoid and 2 Lf of diphtheria toxoid) Samantha Mendes DO Work Phone: [facility] 05-05-2019 influenza, injectabl e, madin deidre canine kidney, preservative free Samantha Rinkes DO Work Phone: [facility] 05-26-2018 influenza, injectabl e, madin deidre canine kidney, preservative free Samantha Rinkes DO Work Phone: [facility] 04-15-2018 influenza virus vaccine, unspecified formulation Jo Annmoiz Ann [facility] 04-15-2018 influenza, injectabl e, quadrivalent, contains preservative Samantha Rinkes DO Work Phone: [facility] 04-14-2018 influenza, injectable,quadrivalen t, preservative free, pediatric Jerry Carroll Other [facility] Other 04-14-2018 influenza virus vaccine, unspecified formulation Jo Ann Ann [facility] 04-14-2018 influenza, injectabl e, quadrivalent, preservative free Samantha Rinedilma DO Work Phone: [facility] 01-30-2018 Kenalog -40 mg Jerry Carroll Other [facility] Other 05-02-2017 influenza, injectabl e, madin deidre canine kidney, preservative free Samantha Rinkes DO Work Phone: [facility] 05-02-2017 Influenza, injectabl e, Madin Deirde Canine Kidney, preservative free, quadrivalent [facility] 05-02-2017 Influenza, injectabl e, Madin [place] Canine Kidney, quadrivalent with preservative Jerry Carly Other [facility] Other 09-20-2016 influenza, injectable,quadrivalen t, preservative free, pediatric Jerry Carly Other [facility] Other 09-15-2015 influenza, injectable,quadrivalen t, preservative free, pediatric Jerry Carly Other [facility] Other 05-20-2009 novel [id number], preservative-free, injectable Samantha Mendes DO Work Phone: [facility] NEGATED: Highlighted row has not occurred!09-20-2016 influenza, injectable,quadrivalen t, preservative free, pediatric Jerry Carly Other [facility] Other NEGATED: Highlighted row has not occurred!09-15-2015 influenza, injectable,quadrivalen t, preservative free, pediatric Jerry Carly Other [facility] Other Payers Date Payer Category Payer Private Health Insurance [employer] [id number] 2021 Unknown [employer] [id number] 2021-Present [address] [place] [address] [id number] 2018 Medicare [id number] 1959 Medicare [id number] 1959 Self-pay 1959 Unknown [id number] 1953 Unknown [id number] 2.16.840.1.958217.3.579.2. 593 1953 Unknown [id number] 2.16.840.1.882308.3.579.2. 593 1953 Unknown [id number] 2.16.840.1.279812.3.579.2. 593 1953 Unknown [id number] 2.16.840.1.131734.3.579.2. 593 1953 Unknown [id number] 2.16.840.1.361343.3.579.2. 593 1953 Unknown [id number] 2.16.840.1.447635.3.579.2. 727 1953 Unknown [id number] 2.16.840.1.950090.3.579.2. 727 1953 Unknown [id number] 2.16.840.1.093835.3.579.2. 1259 1953 Unknown [id number] 2.16.840.1.614974.3.579.2. 1259 1953 Unknown [id number] 2.16.840.1.456332.3.579.2. 1259 1953 Unknown [id number] 2.16.840.1.705028.3.579.2. 1259 1953 Unknown [id number] 2.16.840.1.093731.3.579.2. 1259 1953 Unknown [id number] 2.16.840.1.280319.3.579.2. 1259 Unknown [employer] [place] [id number] Unknown [id number] 2.16.840.1.130806.3.579.2. 531 Unknown [id number] 2.16.840.1.404024.3.579.2. 531 Unknown [id number] 2.16.840.1.856955.3.579.2. 531 Unknown [id number] 2.16.840.1.661718.3.579.2. 531 Unknown [id number] 2.16.840.1.493129.3.579.2. 531 Unknown [id number] 2.16.840.1.014379.3.579.2. 531 Social History Date Type Detail Facility Unknown if ever smoked [email or web address] Other Start: 05-10-2023 End: 08-05-2024 Sex Assigned At [facility] Start: 11-10-2021 End: 01-22-2024 Tobacco smoking status NHIS Smoker (finding) [facility] Start: 1955 Sex Assigned At Female [facility] Start: 02-06-2023 End: 02-19-2024 Tobacco smoking status Heavy tobacco smoker (finding) [facility] Tobacco smoking status Never [facility] Start: 12-16-2023 Tobacco smoking status NHIS Smokes tobacco daily [facility] History of tobacco use Cigarette Smoker [facility] Start: 12-16-2023 Tobacco use and exposure Smokeless tobacco non-user [facility] Start: 03-03-2024 End: 10-15-2024 Alcoholic beverage intake Current drinker of alcohol (finding) [facility] Start: 05-10-2023 End: 08-05-2024 History of Social function [facility] Within the last year , have you been afraid of your partner or ex-partner? No [facility] Are you now , , , , never or living with a partner? [facility] How often to you hav e a drink containing alcohol? 2-3 time sa week [facility] How many standard dr inks containing alcohol do you have on a typical day? 1 or 2 [facility] How often do you hav e 6 or more drinks on 1 occasion? Never [facility] How hard is it for y ou to pay for the very basics like food, housing, medical care, and heating Not very hard [facility] Do you feel stress - tense, restless, nervous, or anxious, or unable to sleep at night because your mind is troubled all the time - these days [OSQ] Only a little [facility] (I/We) worried wheramy er (my/our) food would run out before (I/we) got money to buy more. Never true [facility] Start: 06-19-2023 Tobacco Comment Smokes 6-30 mins after waking up; 6-10 cigs/day [facility] Start: 01-21-2023 Alcohol Comment caffeine: 1-2 cups per day coffee [facility] Start: 01-15-2023 Gender identity Identifies as female gender (finding) [facility] Start: 07-22-2024 End: 10-09-2024 Sex Female (finding) [facility] Do you belong to any clubs or organizations such as buddhist groups, unions, fraternal or athletic groups, or school groups? 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 Orthopaedic bone screw, non-bioabsorbable, sterile ()[id number] FDA Start: 01-21-2024 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 Orthopaedic bone screw, non-bioabsorbable, sterile ()[id number] FDA Start: 01-21-2024 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 Orthopaedic bone screw, non-bioabsorbable, sterile ()[id number] FDA Start: 01-21-2024 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 Non-constrained polyethylene acetabular liner ()[id number] FDA Start: 01-21-2024 Goals Date Patient Goal Desired Activity /State Functional Status Date Assessment Result Facility 02-19-2024 Functional Status N/A [facility] 01-22-2024 Functional status Patient at Baseline [facility] Work Phone: 08-14-2023 Functional Status N/A [facility] 02-06-2023 Functional Status N/A [facility] Mental Status Date Assessment Result Facility 01-22-2024 Cognitive function Cognitive Sta tus Patient at Baseline [facility] Work Phone: Clinical Notes 08-20-2013 to 10-12-2024 Telephone Encounter - Rubi Moss - 10/12/2024 10:58 AM EDTTelephone Encounter - Rubi Moss - 10/12/2024 10:58 AM RADHA Lawrence - 08/05/2024 2:40 PM EST Note Date & Type Note Facility 10-12-2024 Telephone encounter Note Form atting of this note might be different from the original. Pt returning call to schedule MAW. Scheduled for 10/15 at 11 with Erik [facility] 04-07-2025 Miscellaneous Notes Formattin g of this note might be different from the original. Pt returning call to schedule MAW. Scheduled for 10/15 at 11 with Erik documented in this encounter [facility] 08-05-2024 History of Presen t illness Narrative Images from the original note were not included. Subjective Patient ID: Lashonda Catalan is a 68 y.o. female who presents for Insect Bite (Pt is here for a cough and sinus. /Pt woke up Saturday with swelling on left side face, looked like a spider bite along her nose. Has had fullness feeling with the swelling and tenderness on this side. Thinks it could be all from a spider bite or shingles. /Refills on Ambien to [facility] in [place].). URI This is a new problem. The current episode started in the past 7 days. The problem has been gradually worsening. There has been no fever. Associated symptoms include congestion, coughing, headaches, a plugged ear sensation, a rash and sinus pain. Pertinent negatives include no chest pain, diarrhea, ear pain, nausea, sore throat, vomiting or wheezing. Treatments tried: OTC cough suppressant. The treatment provided mild relief. Rash This is a new problem. The current episode started in the past 7 days. The problem has been gradually worsening since onset. The affected locations include the face (left-sided). The rash is characterized by blistering, redness, burning and pain. It is unknown if there was an exposure to a precipitant. Associated symptoms include congestion and coughing. Pertinent negatives include no diarrhea, eye pain, fever, shortness of breath, sore throat or vomiting. Past treatments include nothing. Review of Systems Constitutional: Negative for chills and fever. HENT: Positive for congestion and sinus pain. Negative for ear pain and sore throat. Eyes: Negative for pain. Respiratory: Positive for cough. Negative for shortness of breath and wheezing. Cardiovascular: Negative for chest pain. Gastrointestinal: Negative for diarrhea, nausea and vomiting. Musculoskeletal: Negative for myalgias. Skin: Positive for rash. Neurological: Positive for headaches. All other systems reviewed and are negative. Objective Visit Vitals BP 124/90 Pulse 80 Temp 96.9 F Ht 5' 1 Wt 114 lb SpO2 97% BMI 21.54 kg/m Smoking Status Every Day BSA 1.49 m Physical Exam Constitutional: General: She is not in acute distress. Appearance: She is ill-appearing. HENT: Head: Normocephalic and atraumatic. Right Ear: Tympanic membrane and ear canal normal. Left Ear: Tympanic membrane and ear canal normal. Nose: Congestion present. Mouth/Throat: Mouth: Mucous membranes are moist. Pharynx: Posterior oropharyngeal erythema present. No oropharyngeal exudate. Eyes: Extraocular Movements: Extraocular movements intact. Cardiovascular: Rate and Rhythm: Normal rate and regular rhythm. Pulses: Normal pulses. Heart sounds: No murmur heard. No friction rub. No gallop. Pulmonary: Effort: No respiratory distress. Breath sounds: Normal breath sounds. No wheezing, rhonchi or rales. Lymphadenopathy: Cervical: No cervical adenopathy. Skin: General: Skin is warm and dry. Findings: Rash (of left-sided face; vesicular with crusting; does not cross midline; Chahal sign present) present. Neurological: General: No focal deficit present. Mental Status: She is alert. Psychiatric: Mood and Affect: Mood normal. Behavior: Behavior normal. Judgment: Judgment normal. Assessment/Plan Diagnoses and all orders for this visit: Acute non-recurrent maxillary sinusitis - doxycycline (Vibra-Tabs) 100 MG tablet; Take 1 tablet (100 mg) by mouth in the morning and 1 tablet (100 mg) before bedtime. Do all this for 10 days. Take with a full glass of water and do not lie down for at least 30 minutes after. Treatment options discussed; take medications as directed. Patient advised to increase fluid intake, use guaifenesin, and humidify the air. May use Tylenol as needed. F/u if not improving. To ER or Urgent Care if symptoms worsen or fever >101.5. Report to ER for any breathing difficulties. All questions answered. Patient verbalized understanding. Call the office with any further questions or concerns. Primary insomnia - zolpidem (Ambien) 5 MG tablet; Take 1 tablet (5 mg) by mouth as needed at bedtime for sleep Herpes zoster without complication Discussed Shingles with the patient. Advised pt that it is a virus and as such is self limiting; pt is outside 72-hour window for antiviral. Advised patient is considered contagious until the lesions have completely scabbed over and are almost healed. Keep area covered, especially if draining. Encouraged pt to stay hydrated, get plenty of rest. Advised pt of potential complications of Shingles, including post-herpetic neuralgia. Can take Tylenol prn for pain. Follow up as needed. documented in this encounter [facility] 07-22-2024 Evaluation note Diagnosis Onset Date Resolution Greater trochanteric bursitis of left hip acute July 9:55am History of total left hip arthroplasty acute July 22 9:55am Primary osteoarthritis of left hip acute July 22 9:55am [facility] Work Phone: 1(392) 420-295901-15-2025 Evaluation note* Diagnosis Onset Date Resolution Status Admit Date Greater trochanteric bursiti s of left hip acute July 22 9:55am History of total left hip arthroplasty acute July 22 9:55am Primary osteoarthritis of le ft hip acute July 22 9:55am Snapping hip syndrome acute Jul 9:55am Greater trochanteric bursiti s of left hip acute October 09, 2024 10:16am History of total left hip arthroplasty acute October 09, 2024 10:16am Primary osteoarthritis of le ft hip acute October 09, 2024 10:16am Snapping hip syndrome acute Oct 10:16am [facility] Work Phone: 1(983) 184-117108-27-2024 History of Present illness Narrative* Samantha Mendes DO - 03/03/2024 10:30 AM EDT Images from the original note were not included. Samantha Mendes D.O. Obstetrics and Gynecology Patient: Lashonda Catalan : 1955 (68 y.o.) Yearly Wellness Exam Date: 03/03/2024 Reason for Visit - Chief Complaint Patient presents with Gynecologic Exam Denies concerns, Denies bowel/bladder concerns. Denies breast concerns. Pt is up to date with mammogram. Denies vaginal bleeding/spotting. Visit Vitals BP 124/90 Ht 5' 1 Wt 108 lb BMI 20.41 kg/m Smoking Status Every Day BSA 1.45 m Allergies Allergen Reactions Penicillins Unknown Sulfa Antibiotics Unknown History of Present Illness, Associated Treatments and Results - OB History Para Term AB Living 1 0 0 0 1 0 SAB IAB Ectopic Multiple Live Births 0 0 1 0 0 # Outcome Date GA Lbr Faheem/2nd Weight Sex Type Anes PTL Lv 1 Ectopic Obstetric Comments Pap smear 02/07/23 wnl, Mammogram 12/28/23 wnl, @ [facility] Declined Dexa 2022 Review of Systems - General: Chills denies. Allergy/Immunology: Rash Denies. ENT: Denies Difficulty swallowing. Endocrine: Denies Cold intolerance denies. Heat intolerance denied. Respiratory: Denies Chest pain denies. Shortness of breath denies. Breast: Denies Bloody nipple discharge denies. Breast lump denies. Cardiovascular: Denies Chest pain. Gastrointestinal: Abdominal pain denies. Blood in stool denies. Hematology: Easy bruising denies. Prolonged bleeding denies. Women Only: Breast lump denies. Vaginal bleeding between periods is denied. Vaginal discharge/itching denied. Genitourinary: Blood in urine denies. Painful urination denies. Incontinence denies. Skin: Hair changes. Neurologic: Seizures denied. Stroke denies. Psychiatric: Anxiety denies. Depressed mood denies. Medication Documentation Review Audit Reviewed by Sera Koroma MA ([employer]) on 03/03/24 at 1040 Medication Order Taking? Sig Documenting Provider Last Dose Status Ascorbic Acid (Vitamin C) 500 MG capsule [id number] No Orally Historical ProviderMD Taking Active calcitriol (Rocaltrol) 0.25 MCG capsule [id number] No Take 0.25 mcg by mouth in the morning. Historical Provider, Taking Active cetirizine (ZyrTEC ALLERGY) 10 MG tablet [id number] No 1 (one) time each day at the same time. Historical Provider, Taking Active cyanocobalamin (Vitamin B-12) 1000 MCG tablet [id number] No Take 1,000 mcg by mouth in the morning. Historical Provider, Taking Active Estrace 0.1 MG/GM vaginal cream [id number] No See Instructions, 42.5 gm, Refill(s) 3, apply pea size amount to urethra/inner vagina 3x/week x 1 month, then 2x/week for maintainence, [facility], 156, cm, 02/06/23 9:27:00 EDT, Height/Length Dosing, 52, kg, 02/06/23 9:27:00 EDT, Weight Dosing Historical Provider, Taking Active Glucosamine-Chondroitin (OSTEO BI-FLEX REGULAR STRENGTH PO) [id number] No Osteo Bi-Flex Start Date: 02/06/23 Status: Ordered Historical Provider, Taking Active lansoprazole (Prevacid) [address] capsule [id number] No Take 30 mg by mouth in the morning and 30 mg before bedtime. Historical Provider, Taking Active levothyroxine (Synthroid) 88 MCG tablet [id number] No TAKE ONE TABLET BY MOUTH ONCE DAILY ON AN EMPTYSTOMACH IN THE MORNING Ramakrishna Umanzor DO Taking Active lisinopril 10 MG tablet [id number] No Take 1 tablet (10 mg) by mouth in the morning. Ramakrishna Umanzor DO Taking Active pyridoxine (Vitamin B-6) 25 MG tablet [id number] No Take 25 mg by mouth in the morning. Historical Provider, Taking Active zolpidem (Ambien) 5 MG tablet [id number] Take 1 tablet (5 mg) by mouth as needed at bedtime for sleepNikolas Darden DO Active Past Medical History: Diagnosis Date Allergic Arthritis Cataracts, both eyes Chicken pox Dumping syndrome Family history of cancer GERD (gastroesophageal reflux disease) Hypertension (CMS/HCC) Hypoglycemia Hypothyroidism (CMS/HCC) Lipoma of epigastric area Pain management with Dr. Bender Thyroid disease ([facility]/HCC) Visual impairment Past Surgical History: Procedure Laterality Date CATARACT EXTRACTION 09/2019 CHOLECYSTECTOMY 1987 COLONOSCOPY 2013 COLONOSCOPY 02/10/2019 FOOT SURGERY 2009 FRACTURE SURGERY HERNIA REPAIR [facility] MAMMOGRAPHY 2014 JOINT REPLACEMENT OTHER SURGICAL HISTORY wedge resection-infertility PA POST-CATARACT LASER SURGERY 03/2020 PA REVISE TOTAL HIP REPLACEMENT Right 10/2016 & pinning of Lt. ring finger SALPINGECTOMY Left ectopic TONSILLECTOMY 1960 TOTAL HIP ARTHROPLASTY Left 2023 Family History Problem Relation Name Age of Onset Stroke Mother Mateo Heart disease Father Stroke Sister Corinne Hypertension Sister Corinne Lung cancer Sibling Stroke Sibling Heart disease Other spouse Stroke Other spouse Physical Exam - General appearance, mentation, extraocular movements, facial strength and movement, hearing, upper and lower extremity strength and tone, sensation to gross testing, coordination, and gait are normalor at baseline unless noted below. General Examination: GENERAL APPEARANCE: alert oriented well developed, well nourished. HEAD: normocephalic atraumatic. EYES: sclera anicteric. EARS: no obvious hearing deficit. SKIN: warm and dry. HEART: regular rate and rhythm. LUNGS: clear to auscultation bilaterally. CHEST: axillary nodes grossly normal. BREASTS: no masses palpable bilaterally, normal nipples bilaterally. ABDOMEN: soft, nontender, nondistended, no masses palpable. BACK: no costovertebral angle tenderness, no obvious scoliosis/kyphosis. FEMALE GENITOURINARY: atrophic vaginal mucosa, cervix absent of lesions, nontender, uterus AV, mobile, ovaries nonpalpable and nontender. EXTREMITIES: no edema. NEUROLOGIC: alert and oriented. PSYCH: cooperative with exam. Diagnoses and all orders for this visit: Vaginal atrophy Encounter for screening mammogram for breast cancer Pelvic and breast exam completed. Findings of today's exam discussed with the patient. Continue MSBE. Ca/Vit D recommendations reviewed with the patient. The patient is to contact the office with anychanges to her gynecological condition. The patient is to return in 1 year or as needed ICD-10-CM 1. Vaginal atrophy N95.2 2. Encounter for screening mammogram for breast cancer Z12.31 [id number] Discharge instructions Patient Education 02/19/2024 10:25:38 Atrophic Vaginitis Atrophic Vaginitis Atrophic vaginitis is a condition in which the tissues that line the vagina become dry and thin. This condition is most common in women who have stopped having regular menstrual periods (are in menopause). This usually starts when a woman is 45 to 55 years old. That is the time when a woman's estrogen levels begin to decrease. Estrogen is a female hormone. It helps to keep the tissues of the vagina moist. It stimulates the vagina to produce a clear fluid that lubricates the vagina for sex. This fluid also protects the vagina from infection. Lack of estrogen can cause the lining of the vagina to get thinner and dryer. Thevagina may also shrink in size. It may become less elastic. Atrophic vaginitis tends to get worse over time as a woman's estrogen level drops. What are the causes? This condition is caused by the normal drop in estrogen that happens around the time of menopause. What increases the risk? Certain conditions or situations may lower a woman's estrogen level, leading to a higher risk for atrophic vaginitis. You are more likely to develop this condition if: You are taking medicines that block estrogen. You have had your ovaries removed. You are being treated for cancer with radiation or medicines (chemotherapy). You have given or are . You are older than age 50. You smoke. What are the signs or symptoms? Symptoms of this condition include: Pain, soreness, a feeling of pressure, or bleeding during sex (dyspareunia). Vaginal burning, irritation, or itching. Pain or bleeding when a speculum is used in a vaginal exam. Having burning pain while urinating. Vaginal discharge. In some cases, there are no symptoms. How is this diagnosed? This condition is diagnosed based on your medical history and a physical exam. This will include a pelvic exam that checks the vaginal tissues. Though rare, you may also have other tests, including: A urine test. A test that checks the acid balance in your vagina (acid balance test). How is this treated? Treatment for this condition depends on how severe your symptoms are. Treatment may include: Using an rwoi-uay-ovksqeh vaginal lubricant before sex. Using a long-acting vaginal moisturizer. Using low-dose estrogen for moderate to severe symptoms that do not respond to other treatments. Options include creams, tablets, and inserts (vaginal rings). Before you use a vaginal estrogen, tell your health care provider if you have a history of: ?Breast cancer. ?Endometrial cancer. ?Blood clots. If you are not sexually active and your symptoms are very mild, you may not need treatment. Follow these instructions at home: Medicines Take rxnz-qgk-gupcvpj and prescription medicines only as told by your health care provider. Do not use herbal or alternative medicines unless your health care provider says that you can. Use hpqd-kqu-epbpgii creams, lubricants, or moisturizers for dryness only as told by your health care provider. General instructions If your atrophic vaginitis is caused by menopause, discuss all of your menopause symptoms and treatment options with your health care provider. Do not douche. Do not use products that can make your vagina dry. These include: ?Scented feminine sprays. ?Scented tampons. ?Scented soaps. Vaginal sex can help to improve blood flow and elasticity of vaginal tissue. If you choose to have sex and it hurts, try using a water-soluble lubricant or moisturizer right before having sex. Contact a health care provider if: Your discharge looks different than normal. Your vagina has an unusual smell. You have new symptoms. Your symptoms do not improve with treatment. Your symptoms get worse. Summary Atrophic vaginitis is a condition in which the tissues that line the vagina become dry and thin. Itis most common in women who have stopped having regular menstrual periods (are in menopause). Treatment options include using vaginal lubricants and low-dose vaginal estrogen. Contact a health care provider if your vagina has an unusual smell, or if your symptoms get worse or do not improve after treatment. This information is not intended to replace advice given to you by your health care provider. Make sure you discuss any questions you have with your health care provider. Document Revised: 12/22/2020 Document Reviewed: 12/22/2020 Electron[employer]ie Patient Education 2022 [employer]. Follow Up Care 08/14/2023 11:07:26 With:Seth REYES, IGLESIA Corrales, URO Address: [address] [place] [phone] When: only if needed [facility] 08-14-2024 NotePatient Education Obstetrics and Gynecology Atrophic Vaginitis Atrophic vaginitis is a condition in which the tissues that line the vagina become dry and thin. This condition is most common in women who have stopped having regular menstrual periods (are in menopause). This usually starts when a woman is 45 to 55 years old. That is the time when a woman's estrogen levels begin to decrease. Estrogen is a female hormone. It helps to keep the tissues of the vagina moist. It stimulates the vagina to produce a clear fluid that lubricates the vagina for sex. This fluid also protects the vagina from infection. Lack of estrogen can cause the lining of the vagina to get thinner and dryer. Thevagina may also shrink in size. It may become less elastic. Atrophic vaginitis tends to get worse over time as a woman's estrogen level drops. What are the causes? This condition is caused by the normal drop in estrogen that happens around the time of menopause. What increases the risk? Certain conditions or situations may lower a woman's estrogen level, leading to a higher risk for atrophic vaginitis. You are more likely to develop this condition if: ? You are taking medicines that block estrogen. ? You have had your ovaries removed. ? You are being treated for cancer with radiation or medicines (chemotherapy). ? You have given or are . ? You are older than age 50. ? You smoke. What are the signs or symptoms? Symptoms of this condition include: ? Pain, soreness, a feeling of pressure, or bleeding during sex (dyspareunia). ? Vaginal burning, irritation, or itching. ? Pain or bleeding when a speculum is used in a vaginal exam. ? Having burning pain while urinating. ? Vaginal discharge. In some cases, there are no symptoms. How is this diagnosed? This condition is diagnosed based on your medical history and a physical exam. This will include a pelvic exam that checks the vaginal tissues. Though rare, you may also have other tests, including: ? A urine test. ? A test that checks the acid balance in your vagina (acid balance test). How is this treated? Treatment for this condition depends on how severe your symptoms are. Treatment may include: ? Using an rtat-taa-ffguxpr vaginal lubricant before sex. ? Using a long-acting vaginal moisturizer. ? Using low-dose estrogen for moderate to severe symptoms that do not respond to other treatments. Options include creams, tablets, and inserts (vaginal rings). Before you use a vaginal estrogen, tell your health care provider if you have a history of: ? Breast cancer. ? Endometrial cancer. ? Blood clots. If you are not sexually active and your symptoms are very mild, you may not need treatment. Follow these instructions at home: Medicines ? Take cxws-sxq-jvpzrct and prescription medicines only as told by your health care provider. ? Do not use herbal or alternative medicines unless your health care provider says that you can. ? Use fcop-vtw-drtlevz creams, lubricants, or moisturizers for dryness only as told by your health care provider. General instructions ? If your atrophic vaginitis is caused by menopause, discuss all of your menopause symptoms and treatment options with your health care provider. ? Do not douche. ? Do not use products that can make your vagina dry. These include: ? Scented feminine sprays. ? Scented tampons. ? Scented soaps. ? Vaginal sex can help to improve blood flow and elasticity of vaginal tissue. If you choose to have sex and it hurts, try using a water-soluble lubricant or moisturizer right before having sex. Contact a health care provider if: ? Your discharge looks different than normal. ? Your vagina has an unusual smell. ? You have new symptoms. ? Your symptoms do not improve with treatment. ? Your symptoms get worse. Summary ? Atrophic vaginitis is a condition in which the tissues that line the vagina become dry and thin. It is most common in women who have stopped having regular menstrual periods (are in menopause). ? Treatment options include using vaginal lubricants and low-dose vaginal estrogen. ? Contact a health care provider if your vagina has an unusual smell, or if your symptoms get worseor do not improve after treatment. This information is not intended to replace advice given to you by your health care provider. Make sure you discuss any questions you have with your health care provider. Document Revised: 12/22/2020 Document Reviewed: 12/22/2020 Electronifie Patient Education ? 2022 [employer] 01-22-2024 Progress note Author Mikey Marquez [facility] January 22, 2024 8:17am Note Date/Time January 22, 2024 7:59 am [facility] [address] [place] [address] Orthopedic Progress Note Signed Patient: Lashonda Catalan MR#: [id number] : 1955 Acct:[id number] Age/Sex: 68 / F Adm Date: 4 Loc: 4N Room: 6L8941-5 Type: REG [facility] Attending Dr: Mikey Marquez DO Copies to: ~ Date of Service: 01/22/2024 Subjective Subjective Interval History: No acute events overnight. Pain well-controlled. Exam Physical Exam Vital Signs: Temp Pulse Resp BP Pulse Ox O2 Del Method O2 Flow Rate 98.8 F 69 18 166/79 H 95 Room Air 8 01/22/24 03:34 01/22/24 03:34 01/22/24 03:34 01/22/24 03:34 01/22/24 03:34 01/22/24 03:34 01/21/24 10:24 Narrative: Left hip evaluated. Surgical dressing benign. Appropriate tenderness. Gentle range of motion well-tolerated with some pain. Thigh is soft and compressible. No abnormal calf tenderness. Moves foot and ankle up now without difficulty. Normal perfused foot with normal sensation. Objective Labs Labs: Laboratory Results - last 24 hr 01/22/24 04:41 Corrected WBC 10.3 Uncorrected WBC Count 10.3 RBC 3.97 Hgb 12.1 Hct 35.0 MCV 88.2 MCH 30.5 MCHC 34.6 RDW 13.9 Plt Count 213 MPV 7.5 Neut % (Auto) 76.0 Lymph % (Auto) 16.8 [place] % (Auto) 7.0 Eos % (Auto) 0.0 Baso % (Auto) 0.2 Nucleat RBC Rel Count 0.0 Neut # (Auto) 7.8 H Lymph # (Auto) 1.7 [place] # (Auto) 0.7 Eos # (Auto) 0.0 Baso # (Auto) 0.0 PHA Creatinine Clear 49.38 Sodium 133 L Potassium 3.9 Chloride 101 Carbon Dioxide 27.1 Anion Gap 8.8 BUN 8 Creatinine 0.55 L Est GFR (CKD-EPI) > 60.0 Glucose 99 Calcium 9.2 Assessment / Plan Assessment and plan (1) S/P total hip arthroplasty: Code(s): Z96.649 - Presence of unspecified artificial hip joint Plan POD # 1 S/P left total hip arthroplasty -WBAT with posterior hip precautions -Antibiotic prophylaxis for 23 hours -DVT prophylaxis with aspirin 81 mg twice daily -Pain control: Wean IV medications, oxycodone 5 to 10 mg every 4-6 hours as needed for pain, tramadol 50 mg every 4 hours as needed for pain, Tylenol 1000 mg every 8 hours scheduled, Flexeril 10 mg every 8 hours as needed for spasm -PT/OT -Maintain postoperative dressing for 1 week -Stable for discharge from orthopedic standpoint -Plan for follow-up in office as scheduled, call office with any questions or concerns Dr. Mikey Marquez [facility] [address] [place] [id number] Documented By: Mikey Marquez DO 01/22/24 0758 Signed By: <Electronically signed by Mikey Marquez DO> 01/22/24 0817 [facility] Work Phone: [phone] 556-569806-25-2024 [facility] Discharge instructions Patient Education 08/14/2023 11:02:56 Atrophic Vaginitis Atrophic Vaginitis Atrophic vaginitis is a condition in which the tissues that line the vagina become dry and thin. This condition is most common in women who have stopped having regular menstrual periods (are in menopause). This usually starts when a woman is 45 to 55 years old. That is the time when a woman's estrogen levels begin to decrease. Estrogen is a female hormone. It helps to keep the tissues of the vagina moist. It stimulates the vagina to produce a clear fluid that lubricates the vagina for sex. This fluid also protects the vagina from infection. Lack of estrogen can cause the lining of the vagina to get thinner and dryer. Thevagina may also shrink in size. It may become less elastic. Atrophic vaginitis tends to get worse over time as a woman's estrogen level drops. What are the causes? This condition is caused by the normal drop in estrogen that happens around the time of menopause. What increases the risk? Certain conditions or situations may lower a woman's estrogen level, leading to a higher risk for atrophic vaginitis. You are more likely to develop this condition if: You are taking medicines that block estrogen. You have had your ovaries removed. You are being treated for cancer with radiation or medicines (chemotherapy). You have given or are . You are older than age 50. You smoke. What are the signs or symptoms? Symptoms of this condition include: Pain, soreness, a feeling of pressure, or bleeding during sex (dyspareunia). Vaginal burning, irritation, or itching. Pain or bleeding when a speculum is used in a vaginal exam. Having burning pain while urinating. Vaginal discharge. In some cases, there are no symptoms. How is this diagnosed? This condition is diagnosed based on your medical history and a physical exam. This will include a pelvic exam that checks the vaginal tissues. Though rare, you may also have other tests, including: A urine test. A test that checks the acid balance in your vagina (acid balance test). How is this treated? Treatment for this condition depends on how severe your symptoms are. Treatment may include: Using an zotu-ymd-cyinfau vaginal lubricant before sex. Using a long-acting vaginal moisturizer. Using low-dose estrogen for moderate to severe symptoms that do not respond to other treatments. Options include creams, tablets, and inserts (vaginal rings). Before you use a vaginal estrogen, tell your health care provider if you have a history of: ?Breast cancer. ?Endometrial cancer. ?Blood clots. If you are not sexually active and your symptoms are very mild, you may not need treatment. Follow these instructions at home: Medicines Take fqad-vvp-ijtlnki and prescription medicines only as told by your health care provider. Do not use herbal or alternative medicines unless your health care provider says that you can. Use qdrg-abb-uoybhin creams, lubricants, or moisturizers for dryness only as told by your health care provider. General instructions If your atrophic vaginitis is caused by menopause, discuss all of your menopause symptoms and treatment options with your health care provider. Do not douche. Do not use products that can make your vagina dry. These include: ?Scented feminine sprays. ?Scented tampons. ?Scented soaps. Vaginal sex can help to improve blood flow and elasticity of vaginal tissue. If you choose to have sex and it hurts, try using a water-soluble lubricant or moisturizer right before having sex. Contact a health care provider if: Your discharge looks different than normal. Your vagina has an unusual smell. You have new symptoms. Your symptoms do not improve with treatment. Your symptoms get worse. Summary Atrophic vaginitis is a condition in which the tissues that line the vagina become dry and thin. Itis most common in women who have stopped having regular menstrual periods (are in menopause). Treatment options include using vaginal lubricants and low-dose vaginal estrogen. Contact a health care provider if your vagina has an unusual smell, or if your symptoms get worse or do not improve after treatment. This information is not intended to replace advice given to you by your health care provider. Make sure you discuss any questions you have with your health care provider. Document Revised: 12/22/2020 Document Reviewed: 12/22/2020 Electron[employer]ie Patient Education 2022 [employer]. Follow Up Care 02/06/2023 10:05:49 With:Seth REYES, IGLESIA Corrales, URO Address: [address] [place] [phone] When: Unknown Comments:6 mos [facility] 01-12-2024 Evaluation note* Encounter Date Diagnosis Assessment Notes Treatment Notes Treatment Clinical Notes Jul, Primary osteoarthritis of left hip (ICD-10 - M16.12) Jul, Greater trochanteric bursitis of left hip (ICD-10 - M70.62) Jul, Other In regards to h er left hip primary osteoarthritis, we discussed that she is a great radiographic candidate for a left total hip arthroplasty but clinically she needs to work on quitting smoking and be off of all nicotine products so she can have a negative cotinine test. She still working on that currently. As result, we will continue with conservative treatment until she is ready to get preoperative screening labs including a cotinine test. In regards to her left hip greater trochanteric bursitis. We discussed that this may be a downstream effect of the osteoarthritis he could also be a primary greater trochanteric bursitis. Since this is the point of maximal tenderness and the area that bothers her more, I did recommend a left greater trochanteric bursa injection with steroid medication. Patient agreed. After consent was obtained, the left hip greater trochanteric bursa was injected with 3cc kenalog and 7cc bupivicaine using sterile technique. Patient tolerated the injection well. She is getting give this 3 to 4 weeks to kick in and she is also going to start on diclofenac 75 mg twice daily as well as Voltaren gel 4-5 times a day. If she is not seeing some relief in 3 to 4 weeks she is going to give us a call we may consider a left hip intra-articular injection again. [email or web address] Other 10-12-2023 Evaluation note* Encounter Date Diagnosis Assessment Notes Treatment Notes Treatment Clinical Notes Apr, Primary osteoarthritis of left hip (ICD-10 - M16.12) Apr, Other 1. We had a sebastian g discussion with the patient today concerning their left hip osteoarthritis. The radiographs do show osteoarthritis of the hip. At this time the patient would like to avoid surgical intervention. We did discuss the risk and benefits of surgical versus nonoperative management. The patient would like to proceed with nonoperative management. We discussed that our options include injections, physical therapy, and the consistent use of anti-inflammatories. All 3 of these options, including their risks and benefits, were discussed at length with the patient. 2. Tylenol: Discussed taking Tylenol (acetaminophen). Recommended adjusting their dosing to 1000mg by mouth up to 3 times a day. 3. NSAIDs: Recommend jzcz-lnq-waqckpe anti-inflammatories with PCP approval 4. Physical therapy: Discussed formal physical therapy and home regimen. Patient preferred no PT at this time. 5. Injections: Discussed injections as a treatment option. After consent was obtained, the skin was prepped with betadine and alcohol. Ultrasound was utilized to identify the left hip joint. Using sterile technique, 3cc of kenalog and 7cc of bupivicaine was injected into the left hip joint. Patient tolerated the injection well. Images are stored elsewhere. 6. Follow up 3 months [email or web address] Other 08-23-2023 Evaluation note* Encounter Date Diagnosis Assessment Notes Treatment Notes Treatment Clinical Notes Feb, Primary osteoarthritis of left hip (ICD-10 - M16.12) At this time patient continues to benefit from the most recent hip injection. We dicussed that we could refer patient to Dr. Urrutia for another hip joint should pain return. She will conitnue activity as tolerated. Patient will call with any concerns or questions. Examination and assessment of this patient was performed by Maia Sloan NP and patient will continue with the treatment plan per Dr. Chiu, who initiated this treatment plan. Dr. Chiu is present in the office today and providing supervision. [email or web address] Other 08-02-2023 Hospital Discharge instructions Patient Education 02/06/2023 10:02:31 Urinary Tract Infection, Adult, Sjoj-ff-Lgzo Urinary Tract Infection, Adult A urinary tract infection (UTI) is an infection of any part of the urinary tract. The urinary tractincludes: The kidneys. The ureters. The bladder. The urethra. These organs make, store, and get rid of pee (urine) in the body. What are the causes? This infection is caused by germs (bacteria) in your genital area. These germs grow and cause swelling (inflammation) of your urinary tract. What increases the risk? The following factors may make you more likely to develop this condition: Using a small, thin tube (catheter) to drain pee. Not being able to control when you pee or poop (incontinence). Being female. If you are female, these things can increase the risk: ?Using these methods to prevent : ?A medicine that kills sperm (spermicide). ?A device that blocks sperm (diaphragm). ?Having low levels of a female hormone (estrogen). ?Being . You are more likely to develop this condition if: You have genes that add to your risk. You are sexually active. You take antibiotic medicines. You have trouble peeing because of: ?A prostate that is bigger than normal, if you are male. ?A blockage in the part of your body that drains pee from the bladder. ?A kidney stone. ?A nerve condition that affects your bladder. ?Not getting enough to drink. ?Not peeing often enough. You have other conditions, such as: ?Diabetes. ?A weak disease-fighting system (immune system). ?Sickle cell disease. ?Gout. ?Injury of the spine. What are the signs or symptoms? Symptoms of this condition include: Needing to pee right away. Peeing small amounts often. Pain or burning when peeing. Blood in the pee. Pee that smells bad or not like normal. Trouble peeing. Pee that is cloudy. Fluid coming from the vagina, if you are female. Pain in the belly or lower back. Other symptoms include: Vomiting. Not feeling hungry. Feeling mixed up (confused). This may be the first symptom in older adults. Being tired and grouchy (irritable). A fever. Watery poop (diarrhea). How is this treated? Taking antibiotic medicine. Taking other medicines. Drinking enough water. In some cases, you may need to see a specialist. Follow these instructions at home: Medicines Take agwy-vyn-vkfhcyt and prescription medicines only as told by your doctor. If you were prescribed an antibiotic medicine, take it as told by your doctor. Do not stop taking it even if you start to feel better. General instructions Make sure you: ?Pee until your bladder is empty. ?Do not hold pee for a long time. ?Empty your bladder after sex. ?Wipe from front to back after peeing or pooping if you are a female. Use each tissue one time whenyou wipe. Drink enough fluid to keep your pee pale yellow. Keep all follow-up visits. Contact a doctor if: You do not get better after 1 2 days. Your symptoms go away and then come back. Get help right away if: You have very bad back pain. You have very bad pain in your lower belly. You have a fever. You have chills. You feeling like you will vomit or you vomit. Summary A urinary tract infection (UTI) is an infection of any part of the urinary tract. This condition is caused by germs in your genital area. There are many risk factors for a UTI. Treatment includes antibiotic medicines. Drink enough fluid to keep your pee pale yellow. This information is not intended to replace advice given to you by your health care provider. Make sure you discuss any questions you have with your health care provider. Document Revised: 02/03/2021 Document Reviewed: 02/03/2021 [employer]ie Patient Education 2022 [employer]. Follow Up Care 11/21/2022 09:37:53 With:Seth REYES, IGLESIA Corrales, URO Address: When:Within 6 Month(s) [facility] 10-03-2022 Evaluation note* Encounter Date Diagnosis Assessment Notes Treatment Notes Treatment Clinical Notes Apr, Diarrhea (ICD-10 - R19.7) [email or web address] Other 01-19-2022 Evaluation note* Encounter Date Diagnosis Assessment Notes Treatment Notes Treatment Clinical Notes Jul, Diarrhea (ICD-10 - R19.7) [email or web address] Other 10-06-2021 Evaluation note* Encounter Date Diagnosis Assessment Notes Treatment Notes Treatment Clinical Notes Apr, Gastro-esophageal reflux disease without esophagitis (ICD-10 - K21.9) GERD diet material was printed Apr, Diarrhea (ICD-10 - R19.7) TAKING 2 COLESTIPOL CAUSED BACKUP PATIENT TRYING TO ADJUST MEDICATION WITH OTHER MEDS AND EATING. [email or web address] Other 02-13-2014 History general Narrative - Reported* Type Description Date Medical History hypothyroid Medical History hypoglycemia Medical History GERD Medical History Slow gastric emptying Medical History 08-20-13 Colonoscopy Medical History high blood pressure Medical History blood vessels in eye / burst / l eft eye Medical History varicose veins Left leg Surgical History Cholecystectomy 1986 Surgical History tonsillectomy 1950 Surgical History Tonsillectomy 1959 Surgical History tubal ligation, 1970 Surgical History lipoma removed, thigh 1969 Surgical History cholecystectomy 1979 Surgical History colonoscopy 2013 Surgical History abdominal hernia repair 2004 Surgical History Mammogram 2013 Surgical History foot surgery 2008 Surgical History wedge resection-infertility Surgical History left salpingectomy-ectopic Surgical History teeth extraction 2015 Surgical History Rt. total hip replac ement & pinning of Lt. ring finger 2016 Surgical History TOTAL HIP REPLACEMENT/ DR AGUDELO Surgical History Colonoscopy 02/10/19 Surgical History LEFT RING FINGER FRACTURE W/TEN DON REPAIR/DR MINER Surgical History Cataract 09/2019 Hospitalization History SEE ABOVE [email or web address] Other Evaluation + Plan note Future Appointments Appointment Date:08/14/2023 10:00:00 AM Scheduled Provider:Jo Ann Ann MD Location:[facility] Appointment Type:URO Office Visit [facility] evaluation + Plan note Future Appointments Appointment Date:02/19/2024 09:45:00 AM Scheduled Provider:Jo Ann Ann MD Location:[facility] Appointment Type:URO Office Visit [facility] evalylitpy noteNo assessment information available [facility] Work Phone: evaluation note* Diagnosis Onset Date Resolution Status Greater trochanteric bursitis of left hip acute Primary osteoarthritis of left hip acute [facility] Work Phone: Evaluation note* Diagnosis Onset Date Resolution Status Greater trochanteric bursitis of left hip acute Nicotine dependence acute Primary osteoarthritis of left hip acute [facility] Work Phone: Evaluation note* Diagnosis Onset Date Resolution Status Greater trochanteric bursitis of left hip acute Nicotine dependence acute Primary osteoarthritis of left hip acute Greater trochanteric bursitis of left hip acute Nicotine dependence acute Primary osteoarthritis of left hip acute [facility] Work Phone: Evaluation note* Diagnosis Onset Date Resolution Status Greater trochanteric bursitis of left hip acute Nicotine dependence acute Primary osteoarthritis of left hip acute Inflammation of left sacroiliac joint acute Other chronic pain acute Primary osteoarthritis of left hip acute [facility] Work Phone: Evaluation note* Diagnosis Onset Date Resolution Status Greater trochanteric bursitis of left hip acute Nicotine dependence acute Primary osteoarthritis of left hip acute Inflammation of left sacroiliac joint acute Other chronic pain acute Primary osteoarthritis of left hip acute Inflammation of left sacroiliac joint acute Other chronic pain acute Primary osteoarthritis of left hip acute [facility] Work Phone: evaluation note* Diagnosis Onset Date Resolution Status Greater trochanteric bursitis of left hip acute Nicotine dependence acute Primary osteoarthritis of left hip acute Inflammation of left sacroiliac joint acute Other chronic pain acute Primary osteoarthritis of left hip acute Inflammation of left sacroiliac joint acute Other chronic pain acute Primary osteoarthritis of left hip acute Greater trochanteric bursitis of left hip acute Nicotine dependence acute Primary osteoarthritis of left hip acute Pre-op examination noneactiv e [facility] Work Phone: Evaluation note* Diagnosis Onset Date Resolution Status Greater trochanteric bursitis of left hip acute Nicotine dependence acute Primary osteoarthritis of left hip acute Inflammation of left sacroiliac joint acute Other chronic pain acute Primary osteoarthritis of left hip acute Inflammation of left sacroiliac joint acute Other chronic pain acute Primary osteoarthritis of left hip acute Greater trochanteric bursitis of left hip acute Nicotine dependence acute Primary osteoarthritis of left hip acute Pre-op examination noneactiv e S/P total hip arthroplasty a cute [facility] Work Phone: Evaluation note* Diagnosis Onset Date Resolution Status Greater trochanteric bursitis of left hip acute Nicotine dependence acute Primary osteoarthritis of left hip acute Inflammation of left sacroiliac joint acute Other chronic pain acute Primary osteoarthritis of left hip acute Inflammation of left sacroiliac joint acute Other chronic pain acute Primary osteoarthritis of left hip acute Greater trochanteric bursitis of left hip acute Nicotine dependence acute Primary osteoarthritis of left hip acute Pre-op examination noneactiv e S/P total hip arthroplasty a cute Greater trochanteric bursitis of left hip acute History of total left hip arthroplasty acute Nicotine dependence acute Primary osteoarthritis of left hip acute [facility] Work Phone: Evaluation note* Diagnosis Onset Date Resolution Status Greater trochanteric bursitis of left hip acute Nicotine dependence acute Primary osteoarthritis of left hip acute Inflammation of left sacroiliac joint acute Other chronic pain acute Primary osteoarthritis of left hip acute Inflammation of left sacroiliac joint acute Other chronic pain acute Primary osteoarthritis of left hip acute Greater trochanteric bursitis of left hip acute Nicotine dependence acute Primary osteoarthritis of left hip acute Pre-op examination noneactiv e S/P total hip arthroplasty a cute Greater trochanteric bursitis of left hip acute History of total left hip arthroplasty acute Primary osteoarthritis of left hip acute Greater trochanteric bursitis of left hip acute History of total left hip arthroplasty acute Primary osteoarthritis of left hip acute [facility] Work Phone: Evaluation note* Diagnosis Onset Date Resolution Status Inflammation of left sacroiliac joint acute Other chronic pain acute Primary osteoarthritis of left hip acute Greater trochanteric bursitis of left hip acute Nicotine dependence acute Primary osteoarthritis of left hip acute Pre-op examination noneactiv e S/P total hip arthroplasty a cute Greater trochanteric bursitis of left hip acute History of total left hip arthroplasty acute Primary osteoarthritis of left hip acute Greater trochanteric bursitis of left hip acute History of total left hip arthroplasty acute Primary osteoarthritis of left hip acute [facility] Work Phone: Evaluation note* Diagnosis Vaginal atrophy Postmenopausal atrophic vaginitis Encounter for screening mammogram for breast cancer documented in this encounter [facility]* Diagnosis Onset Date Resolution Status Admit Date Greater trochanteric bursiti s of left hip acute July 22 9:55am History of total left hip arthroplasty acute July 22 9:55am Primary osteoarthritis of le ft hip acute July 22 9:55am [facility] Work Phone: Evaluation note* Diagnosis Acute non-recurrent maxillary sinusitis- Primary Primary insomnia Persistent disorder of initiating or maintaining sleep Herpes zoster without complication documented in this encounter [facility]* Diagnosis Gastro-esophageal reflux disease without esophagitis- Primary Routine general medical examination at health care facility Routine general medical examination at a health care facility Screening for deficiency anemia Screening for other and unspecified deficiency anemia Screening for diabetes mellitus (DM) Screening for diabetes mellitus Screening for cardiovascular condition Screening for other and unspecified cardiovascular conditions Atrophy of vagina Postmenopausal atrophic vaginitis Acquired hypothyroidism (CMS/HCC) Unspecified hypothyroidism Current smoker Essential hypertension (CMS/HCC) Unspecified essential hypertension Primary insomnia Persistent disorder of initiating or maintaining sleep [facility] Narrative* RADHA Allen - 10/15/2024 11:00 AM EDT Images from the original note were not included. Subjective Chief Complaint: Lashonda Catalan is an 68 y.o. female here for an annual wellness visit. I have reviewed and reconciled the history and medication list with the patient today. Current Outpatient Medications Medication Sig Dispense Refill Ascorbic Acid (Vitamin C) 500 MG capsule Orally calcitriol (Rocaltrol) 0.25 MCG capsule Take 0.25 mcg by mouth in the morning. cetirizine (ZyrTEC ALLERGY) 10 MG tablet 1 (one) time each day at the same time. cyanocobalamin (Vitamin B-12) 1000 MCG tablet Take 1,000 mcg by mouth in the morning. Estrace 0.1 MG/GM vaginal cream See Instructions, 42.5 gm, Refill(s) 3, apply pea size amount to urethra/inner vagina 3x/week x 1 month, then 2x/week for maintainence, [facility], 156, cm, 02/06/23 9:27:00 EDT, Height/Length Dosing, 52, kg, 02/06/23 9:27:00 EDT, Weight Dosing Glucosamine-Chondroitin (OSTEO BI-FLEX REGULAR STRENGTH PO) Osteo Bi-Flex Start Date: 02/06/23 Status: Ordered lansoprazole (Prevacid) [address] capsule Take 30 mg by mouth in the morning and 30 mg before bedtime. levothyroxine (Synthroid) 88 MCG tablet TAKE 1 TABLET BY MOUTH ONCE EVERY MORNING ON AN EMPTY STOMACH 90 tablet 3 pyridoxine (Vitamin B-6) 25 MG tablet Take 25 mg by mouth in the morning. zolpidem (Ambien) 5 MG tablet Take 1 tablet (5 mg) by mouth as needed at bedtime for sleep 30 tablet 0 lisinopril 10 MG tablet Take 1 tablet (10 mg) by mouth in the morning. 90 tablet 3 No current facility-administered medications for this visit. Review of Systems All other systems reviewed and are negative. List of current healthcare providers: Patient Care Team: Ramakrishna Umanzor DO as PCP - General (Family Medicine) Nikolas Darden DO as PCP - [facility] [employer] Annual Visit Over the past 2 weeks, how often have you been bothered by any of the following problems? Little interest or pleasure in doing things: Not at all Feeling down, depressed, or hopeless: Not at all Patient Health Questionnaire-2 Score: 0 Over the past 2 weeks, how often have you been bothered by any of the following problems? Trouble falling or staying asleep, or sleeping too much: Not at all Feeling tired or having little energy: Not at all Poor appetite or overeating: Not at all Feeling bad about yourself - or that you are a failure or have let yourself or your family down: Not at all Trouble concentrating on things, such as reading the newspaper or watching television: Not at all Moving or speaking so slowly that other people could have noticed? Or the opposite - being so fidgety or restless that you have been moving around a lot more than usual.: Not at all Thoughts that you would be better off or hurting yourself in some way: Not at all Patient Health Questionnaire-9 Score: 0 Durán Fall Risk History of Falling, Immediate or Within 3 Months: No Secondary Diagnosis: No Ambulatory Aid: Walks without aid/bedrest/nurse assist Intravenous Therapy/Heparin Lock: No Gait/Transferring: Normal/bedrest/immobile Mental Status: Oriented to own ability Durán Fall Risk Score: 0 Health Risk Assessment Form Do you need help eating, bathing, using the toilet, dressing, or getting around your home?: No Can you prepare your own meals?: Yes Can you do your own housework without help?: Yes Can you shop for groceries or clothes without help?: Yes Do you exercise for about 20 minutes 3 or more days a week?: Yes How confident are you that you can control and manage most of your health problems?: Somewhat confident Can you mange your money, credit cards and accounts, pay bills and taxes?: Yes Vision Screening: Yes, patient was advised to have yearly eye exam Hearing Screening: Not done Cognitive Screening Self Assessment: No overt cognitive deficiency is apparent by direct observation Three Word Registration: Village, Kitchen, Baby Clock Drawing: Normal Clock - 2 Three Word Recall: All 3 words correct - 3 Total Score (0-5 Points): 5 Pain Assessment Pain Score: 5 - Moderate pain Advance Care Planning Do you have a living will?: Yes Do you have a medical power of commercial real estate attorney?: Yes Who is your medical power of commercial real estate attorney?: Sabina Chung Objective BP (!) 130/96 Pulse 84 Temp 98.3 F Ht 5' 1 Wt 113 lb SpO2 98% BMI 21.35 kg/m Physical Exam Constitutional: General: She is not in acute distress. Appearance: Normal appearance. HENT: Head: Normocephalic and atraumatic. Mouth/Throat: Mouth: Mucous membranes are moist. Eyes: Extraocular Movements: Extraocular movements intact. Neck: Vascular: No carotid bruit. Cardiovascular: Rate and Rhythm: Normal rate and regular rhythm. Pulses: Normal pulses. Heart sounds: No murmur heard. No friction rub. No gallop. Pulmonary: Effort: No respiratory distress. Breath sounds: Normal breath sounds. No wheezing, rhonchi or rales. Abdominal: General: Bowel sounds are normal. There is no distension. Palpations: Abdomen is soft. Tenderness: There is no abdominal tenderness. Musculoskeletal: Right lower leg: No edema. Left lower leg: No edema. Skin: General: Skin is warm and dry. Findings: No rash. Neurological: General: No focal deficit present. Mental Status: She is alert and oriented to person, place, and time. Psychiatric: Mood and Affect: Mood normal. Behavior: Behavior normal. Judgment: Judgment normal. Assessment/Plan The following health maintenance schedule was reviewed with the patient and provided in printed form in the after visit summary: Health Maintenance Topic Date Due Mammogram 12/29/2024 Colorectal Cancer Screening 02/10/2029 Influenza Vaccine Completed Pneumococcal Vaccine: 65+ Years Completed Patient Active Problem List Diagnosis Atrophy of vagina Essential hypertension (CMS/HCC) Gastro-esophageal reflux disease without esophagitis Hypothyroidism ([facility]/HCC) Primary osteoarthritis of right hip Seasonal allergic rhinitis Right groin pain Current smoker Urethral caruncle Dumping syndrome Continue with care team regarding the diagnoses above: Patient here for annual Medicare Wellness visit. Demographics were updated. Self-assessment was completed. Past medical, family and social history were updated. The medication list, including supplements being taken, was updated. A list of other current medical providers was established/updated. Time was spent discussing health maintenance issues, ordering proper testing, and schedule was provided regarding recommended screening. We discussed safety issues and fall risk. Depression screening was completed and addressed. Cognitive function was assessed by direct observation and assessment of ability to perform ADL's and IADL's was done. We also discussed Advanced Directives and code status. The current BMI was provided along with an education packet regarding healthy living and maintenanceof a healthy weight. The BMI will continue to be monitored at routine office visits as well. Major risk factors for chronic disease including family history were discussed. documented in this [facility] course Narrative No data available for this section [facility] progress note No data available for this section [facility] Summary Purpose Family History Relationship Condition Age at Onset Recorded Date/T yelena Not Specified Malignant neoplasm of colon Unknown Cerebrovascular accident (CVA) Unknown sister Cerebrovascular accident (CVA) Unknown Malignant neoplasm of lung Unknown father Myocardial infarction Unknown Relationship Condition Age at Onset Recorded Date/T yelena Not Specified Malignant neoplasm of colon Unknown Cerebrovascular accident (CVA) Unknown sister Cerebrovascular accident (CVA) Unknown Malignant neoplasm of lung Unknown father Myocardial infarction Unknown Unknown Heart disease Unknown Not Specified Hypertension Unknown History of stroke Unknown sibling Malignant neoplasm Unknown spouse Heart disease Unknown sister History of stroke Unknown Hypertension Unknown Malignant neoplasm Unknown Relationship Condition Age at Onset Recorded Date/T yelena mother Malignant neoplasm of colon Unknown sister Malignant neoplasm of lung Unknown father Myocardial infarction Unknown father Heart disease Unknown Unknown mother Unknown History of stroke Unknown Hypertension Unknown sibling Malignant neoplasm Unknown spouse Heart disease Unknown sister Heart disease Unknown Malignant neoplasm Unknown Advance Directives Advance Directive Response Recorded Date/ Time Advance Directives Yes November 10, 2021 7:57am Advance Directive Response Recorded Date/ Time Advance Directives Yes November 10, 2021 6:57am Chief Complaint and Reason for Visit Chief Complaint m25.552 Screening K40.90 Chief Complaint 3 Month Follow Up op sp lt hip discuss surgery Reason for Visit Greater trochanteric bursitis of left hip Primary osteoarthritis of left hip Chief Complaint op sp lt hip discuss surgery R05.8;R68.83 Reason for Visit Greater trochanteric bursitis of left hip Nicotine dependence Primary osteoarthritis of left hip Chief Complaint op sp lt hip discuss surgery R05.8;R68.[address] CHIU DISCUSS LT HIP SURGERY Reason for Visit Greater trochanteric bursitis of left hip Nicotine dependence Primary osteoarthritis of left hip Greater trochanteric bursitis of left hip Nicotine dependence Primary osteoarthritis of left hip Chief Complaint R05.8;R68.[address] CHIU DISCUSS LT HIP SURGERY CONSULT DR MARQUEZ LT HIP SI JOINT PAIN Reason for Visit Greater trochanteric bursitis of left hip Nicotine dependence Primary osteoarthritis of left hip Chief Complaint R05.8;R68.[address] CHIU DISCUSS LT HIP SURGERY CONSULT DR MARQUEZ LT HIP SI JOINT PAIN Screening Reason for Visit Greater trochanteric bursitis of left hip Nicotine dependence Primary osteoarthritis of left hip Inflammation of left sacroiliac joint Other chronic pain Primary osteoarthritis of left hip Chief Complaint R05.8;R68.[address] CHIU DISCUSS LT HIP SURGERY CONSULT DR JIMMY PAINTER HIP SI JOINT PAIN Screening LUMBAR PAIN LUMBAR PAIN Reason for Visit Greater trochanteric bursitis of left hip Nicotine dependence Primary osteoarthritis of left hip Inflammation of left sacroiliac joint Other chronic pain Primary osteoarthritis of left hip Chief Complaint R05.8;R68.[address] CHIU DISCUSS LT HIP SURGERY CONSULT DR MARQUEZ LT HIP SI JOINT PAIN Screening LUMBAR PAIN LUMBAR PAIN Left Hip Pain F/U LEFT SI JOINT INJECTION Reason for Visit Greater trochanteric bursitis of left hip Nicotine dependence Primary osteoarthritis of left hip Inflammation of left sacroiliac joint Other chronic pain Primary osteoarthritis of left hip Inflammation of left sacroiliac joint Other chronic pain Primary osteoarthritis of left hip Chief Complaint R05.8;R68.[address] CHIU DISCUSS LT HIP SURGERY CONSULT DR MARQUEZ LT HIP SI JOINT PAIN Screening LUMBAR PAIN LUMBAR PAIN Left Hip Pain F/U LEFT SI JOINT INJECTION Preop L LULU H & P LEFT TOTAL HIP ARTHROPLASTY 01-21-24 Reason for Visit Greater trochanteric bursitis of left hip Nicotine dependence Primary osteoarthritis of left hip Inflammation of left sacroiliac joint Other chronic pain Primary osteoarthritis of left hip Inflammation of left sacroiliac joint Other chronic pain Primary osteoarthritis of left hip Greater trochanteric bursitis of left hip Nicotine dependence Primary osteoarthritis of left hip Pre-op examination Chief Complaint R05.8;R68.[address] CHIU DISCUSS LT HIP SURGERY CONSULT DR MARQUEZ LT HIP SI JOINT PAIN Screening LUMBAR PAIN LUMBAR PAIN Left Hip Pain F/U LEFT SI JOINT INJECTION Preop L LULU H & P LEFT TOTAL HIP ARTHROPLASTY 01-21-24 Hip pain Hip pain Reason for Visit Greater trochanteric bursitis of left hip Nicotine dependence Primary osteoarthritis of left hip Inflammation of left sacroiliac joint Other chronic pain Primary osteoarthritis of left hip Inflammation of left sacroiliac joint Other chronic pain Primary osteoarthritis of left hip Greater trochanteric bursitis of left hip Nicotine dependence Primary osteoarthritis of left hip Pre-op examination Chief Complaint R05.8;R68.[address] CHIU DISCUSS LT HIP SURGERY CONSULT DR MARQUEZ LT HIP SI JOINT PAIN Screening LUMBAR PAIN LUMBAR PAIN Left Hip Pain F/U LEFT SI JOINT INJECTION Preop L LULU H & P LEFT TOTAL HIP ARTHROPLASTY 01-21-24 Hip pain Hip pain Reason for Visit Greater trochanteric bursitis of left hip Nicotine dependence Primary osteoarthritis of left hip Inflammation of left sacroiliac joint Other chronic pain Primary osteoarthritis of left hip Inflammation of left sacroiliac joint Other chronic pain Primary osteoarthritis of left hip Greater trochanteric bursitis of left hip Nicotine dependence Primary osteoarthritis of left hip Pre-op examination S/P total hip arthroplasty Chief Complaint R05.8;R68.[address] CHIU DISCUSS LT HIP SURGERY CONSULT DR MARQUEZ LT HIP SI JOINT PAIN Screening LUMBAR PAIN LUMBAR PAIN Left Hip Pain F/U LEFT SI JOINT INJECTION Preop L LULU H & P LEFT TOTAL HIP ARTHROPLASTY 01-21-24 Hip pain Hip pain 2 WEEKS POST OP Reason for Visit Greater trochanteric bursitis of left hip Nicotine dependence Primary osteoarthritis of left hip Inflammation of left sacroiliac joint Other chronic pain Primary osteoarthritis of left hip Inflammation of left sacroiliac joint Other chronic pain Primary osteoarthritis of left hip Greater trochanteric bursitis of left hip Nicotine dependence Primary osteoarthritis of left hip Pre-op examination S/P total hip arthroplasty Greater trochanteric bursitis of left hip History of total left hip arthroplasty Nicotine dependence Primary osteoarthritis of left hip Chief Complaint CONSULT DR CHIU DISCUSS LT HIP SURGERY CONSULT DR MARQUEZ LT HIP SI JOINT PAIN Screening LUMBAR PAIN LUMBAR PAIN Left Hip Pain F/U LEFT SI JOINT INJECTION Preop L LULU H & P LEFT TOTAL HIP ARTHROPLASTY 01-21-24 Hip pain Hip pain 2 WEEKS POST OP 4 WK RECHECK Reason for Visit Greater trochanteric bursitis of left hip Nicotine dependence Primary osteoarthritis of left hip Inflammation of left sacroiliac joint Other chronic pain Primary osteoarthritis of left hip Inflammation of left sacroiliac joint Other chronic pain Primary osteoarthritis of left hip Greater trochanteric bursitis of left hip Nicotine dependence Primary osteoarthritis of left hip Pre-op examination S/P total hip arthroplasty Greater trochanteric bursitis of left hip History of total left hip arthroplasty Primary osteoarthritis of left hip Greater trochanteric bursitis of left hip History of total left hip arthroplasty Primary osteoarthritis of left hip Chief Complaint F/U LEFT SI JOINT IN JECTION Preop L LULU H & P LEFT TOTAL HIP ARTHROPLASTY 01-21-24 Hip pain Hip pain 2 WEEKS POST OP 4 WK RECHECK Over due Office visit/ Med Refill Reason for Visit Inflammation of left sacroiliac joint Other chronic pain Primary osteoarthritis of left hip Greater trochanteric bursitis of left hip Nicotine dependence Primary osteoarthritis of left hip Pre-op examination S/P total hip arthroplasty Greater trochanteric bursitis of left hip History of total left hip arthroplasty Primary osteoarthritis of left hip Greater trochanteric bursitis of left hip History of total left hip arthroplasty Primary osteoarthritis of left hip Chief Complaint Admit Date [id number] - Presence of left artificial hi p joint July 22, 2024 7:34am 6 MONTHS July 22, 2024 9 :55am Reason for Visit Admit Date Greater trochanteric bursitis of left hi p July 22, 2024 9:55am History of total left hip arthroplasty J anuary 2024 9:55am Primary osteoarthritis of left hip Janua ry 2024 9:55am Chief Complaint Admit Date Z96.642 - Presence of left artificial hi p joint July 22, 2024 7:34am 6 MONTHS July 22, 2024 9 :55am F/U AFTER THERAPY October 09, 2024 10:1 6am Reason for Visit Admit Date Greater trochanteric bursitis of left hi p July 22, 2024 9:55am History of total left hip arthroplasty J anuary 2024 9:55am Primary osteoarthritis of left hip Janua ry 2024 9:55am Snapping hip syndrome July 22, 2024 9:55am Greater trochanteric bursitis of left hi p October 09, 2024 10:16am History of total left hip arthroplasty A pril 2024 10:16am Primary osteoarthritis of left hip October 09, 2024 10:16am Snapping hip syndrome October 09, 2024 10 :16am Additional Source Comments INFORMATION SOURCE (unrecogn ized section and content) DATE CREATED AUTHOR 10/26/2021 [facility] pital DATE CREATED AUTHOR AUTHOR'S ORGANIZ ATION 02/21/2024 [facility] DATE CREATED AUTHOR AUTHOR'S ORGANIZ ATION 08/04/2024 [facility] DATE CREATED AUTHOR AUTHOR'S ORGANIZ ATION 08/07/2024 [facility] EPIC REASON FOR VISIT (unrecogniz ed section and content) Reason Comments Gynecologic Exam Denies concerns, Den ies bowel/bladder concerns. Denies breast concerns. Pt is up to date with mammogram. Denies vaginal bleeding/spotting. Reason Comments Insect Bite Pt is here for a cou gh and sinus. Pt woke up Saturday with swelling on left side face, looked like a spider bite along her nose. Has had fullness feeling with the swelling and tenderness on this side. Thinks it could be all from a spider bite or shingles. Refills on Ambien to [facility] in [place]. Reason Onset Date Comments Appointment Request 10/12/2024 Care Teams (unrecognized sec tion and content) Team Status: Active Member Role Status Dates Ramakrishna Umanzor DO Primary Care Provider Active Team Status: Inactive Member Role Status Dates Ramakrishna Umanzor DO Primary Care Provider Active St art: July 22, 2024 End: July 22, 2024 Mikey Marquez DO Attending Provider Active S tart: July 22, 2024 End: July 22, 2024 Team Status: Active Member Role Status Dates Ramakrishna Umanzor DO Primary Care Provider Active St art: July 22, 2024 Mikey A Jimmy , DO Attending Provider Active S tart: July 22, 2024 Team Status: Inactive Member Role Status Evelyn Umanzor DO Primary Care Provider Active Ramakrishna Krishna , DO Attending Provider Active Team Status: Inactive Member Role Status Evelyn Umanzor DO Primary Care Provider Active Samantha Mendes , DO Attending Provider Active Team Status: Inactive Member Role Status Evelyn Umanzor DO Primary Care Provider Active Marek Chiu II, MD Attending Provider Active Team Status: Inactive Member Role Status Dates Marek Chiu II, MD Attending Provider Active Start: July 19, 2023 End: July 19, 2023 Team Status: Inactive Member Role Status Evelyn Umanzor DO Primary Care Provider Active St art: September 25, 2023 End: September 25, 2023 Marek Chiu II, MD Attending Provider Active Start: September 25, 2023 End: September 25, 2023 Team Status: Inactive Member Role Status Evelyn Umanzor DO Primary Care Provider Active St art: November 29, 2023 End: November 29, 2023 Nikolas Darden DO Attending Provider Active Start: November 29, 2023 End: November 29, 2023 Team Status: Inactive Member Role Status Evelyn Umanzor DO Primary Care Provider Active St art: December 18, 2023 End: December 18, 2023 Mikey Marquez , Attending Provider Active S tart: December 18, 2023 End: December 18, 2023 Team Status: Inactive Member Role Status Evelyn Umanzor DO Primary Care Provider Active St art: December 25, 2023 End: December 25, 2023 Koko Urrutia MD Attending Provider Active Sta rt: December 25, 2023 End: December 25, 2023 Team Status: Inactive Member Role Status Evelyn Umanzor DO Primary Care Provider Active St art: December 28, 2023 End: December 28, 2023 Referral Self Attending Provider Active Start: J 2023 End: December 28, 2023 Samantha Mendes DO Referring Provider Active S tart: December 28, 2023 End: December 28, 2023 Team Status: Inactive Member Role Status Evelyn Umanzor DO Primary Care Provider Active St art: December 31, 2023 End: December 31, 2023 Koko Urrutia MD Attending Provider Active Sta rt: December 31, 2023 End: December 31, 2023 Team Status: Active Member Role Status Dates Ramakrishna Umanzor DO Primary Care Provider Active St art: December 31, 2023 Koko Urrutia MD Attending Provider, Other Provider Active Start: December 31, 2023 Team Status: Inactive Member Role Status Dates Ramakrishna Umanzor , DO Primary Care Provider Active St art: January 03, 2024 End: January 03, 2024 Mikey Marquez , DO Attending Provider Active S tart: January 03, 2024 End: January 03, 2024 Team Status: Inactive Member Role Status Dates Ramakrishna Umanzor , DO Primary Care Provider Active St art: January 13, 2024 End: January 13, 2024 Koko Urrutia MD Attending Provider Active Sta rt: January 13, 2024 End: January 13, 2024 Team Status: Active Member Role Status Dates Ramakrishna Umanzor DO Primary Care Provider Active St art: January 20, 2024 Mikey Marquez , DO Attending Provider Active S tart: January 20, 2024 Team Status: Inactive Member Role Status Dates Ramakrishna Umanzor DO Primary Care Provider Active St art: January 20, 2024 End: January 20, 2024 Mikey Marquez , DO Attending Provider Active S tart: January 20, 2024 End: January 20, 2024 Team Status: Active Member Role Status Dates Ramakrishna Umanzor DO Primary Care Provider Active St art: January 21, 2024 Mikey Marquez , DO Attending Provider Active S tart: January 21, 2024 Team Status: Active Member Role Status Dates Ramakrishna Umanzor DO Primary Care Provider Active St art: January 21, 2024 Mikey Marquez , DO Attending Provider, Other Provide r Active Start: January 21, 2024 Team Status: Inactive Member Role Status Dates Ramakrishna Umanzor DO Primary Care Provider Active St art: January 21, 2024 End: January 22, 2024 Mikey Marquez , DO Attending Provider Active S tart: January 21, 2024 End: January 22, 2024 Team Status: Inactive Member Role Status Dates Ramakrishna Umanzor DO Primary Care Provider Active St art: February 03, 2024 End: February 03, 2024 Mikey Marquez , DO Attending Provider Active S tart: February 03, 2024 End: February 03, 2024 Team Status: Inactive Member Role Status Dates Ramakrishna Umanzor DO Primary Care Provider Active St art: March 13, 2024 End: March 13, 2024 Mikey Marquez DO Attending Provider Active S tart: March 13, 2024 End: March 13, 2024 Team Status: Inactive Member Role Status Dates Ramakrishna Umanzor DO Primary Care Provider Active St art: April 09, 2024 End: April 09, 2024 Rene Rodriguez MD Attending Provider Active Start: April 09, 2024 End: April 09, 2024 Inspection And Testing Supervisor Relationship Specialty Start Date End Date Ramakrishna Umanzor DO [address] [place] [address] PCP - ACO Reach 11/29/22 Ramakrishna Umanzor DO [address] [place] [address] PCP - General Family Medicine 01/22/23 Inspection And Testing Supervisor Relationship Specialty Start Date End Date Ramakrishna Umanzor DO [address] [place] [address] PCP - ACO Reach 11/29/22 Ramakrishna Umanzor DO [address] [place] [address] PCP - General Family Medicine 01/22/23 Inspection And Testing Supervisor Relationship Specialty Start Date End Date Ramakrishna Umanzor DO [address] [place] [address] PCP - ACO Reach 11/29/22 Ramakrishna Umanzor DO [address] [place] [address] PCP - General Family Medicine 01/22/23 Inspection And Testing Supervisor Relationship Specialty Start Date End Date Ramakrishna Umanzor DO [address] [place] [address] PCP - ACO Reach 11/29/22 Ramakrishna Umanzor, [address] [place] [address] PCP - General Family Medicine 01/22/23 Team Status: Inactive Member Role Status Dates Ramakrishna Umanzor DO Primary Care Provider Active St art: October 09, 2024 End: October 09, 2024 Mikey Marquez DO Attending Provider Active S tart: October 09, 2024 End: October 09, 2024 Inspection And Testing Supervisor Relationship Specialty Start Date End Date Ramakrishna Umanzor, [address] [place] [address] PCP - General Family Medicine 01/22/23 Nikolas Darden DO [address] [place] [address] PCP - ACO Reach 08/14/24 Inspection And Testing Supervisor Relationship Specialty Start Date End Date Ramakrishna Umanzor, [address] [place] [address] PCP - General Family Medicine 01/22/23 Nikolas Darden DO [address] [place] [address] PCP - ACO Reach 08/14/24 Inspection And Testing Supervisor Relationship Specialty Start Date End Date Ramakrishna Umanzor DO [address] [place] [address] PCP - General Family Medicine 01/22/23 Nikolas Darden DO [address] [place] [address] PCP - ACO Reach 08/14/24 Goals (unrecognized section and content) Goals may be documented in a n alternate section FOR RECORDS PERTAINING TO PATIENTS WHO ARE OR HAVE BEEN ENROLLED IN A CHEMICAL DEPENDENCY/SUBSTANCEABUSE PROGRAM, SOME INFORMATION MAY BE OMITTED. This clinical summary was aggregated from multiple sources. Caution should be exercised in using it in the provision of clinical care. This summary normalizes information from multiple sources, and as a consequence, information in this document may materially change the coding, format and clinical context of patient data. In addition, data may be omitted in some cases. CLINICAL DECISIONS SHOULD BE BASED ON THE PRIMARY CLINICAL RECORDS. [facility]. provides no warranty or guarantee of the accuracy or completeness of information in this document.
[2024-10-16 08:37] LABS: Basophils Percent Auto 0.3 % (0.2-2.0); Eosinophils Absolute Auto 0.2 10^3/uL (0.0-0.7); Eosinophils Percent Auto 2.6 % (0.9-7.0); Hematocrit 42.5 % (36.0-48.0); Hemoglobin 14.4 g/dL (12.0-16.0); Immature Granulocytes Abs Auto 0.01 10^3/uL (0.00-0.03); Immature Granulocytes Pct Auto 0.2 % (0.0-0.5); Lymphocytes Absolute Auto 3.5 10^3/uL (1.2-3.8); Lymphocytes Percent Auto 57.6 % (20.5-60.0); Mean Corpuscular HGB Conc 33.9 g/dL (29.9-35.2); Mean Corpuscular Hemoglobin 31.2 pg (26.7-34.0); Mean Platelet Volume 10.2 fL (9.5-13.5); Monocytes Absolute Auto 0.3 10^3/uL (0.3-0.8); Monocytes Percent Auto 5.1 % (1.7-12.0); Neutrophils Absolute Auto 2.1 10^3/uL (1.4-6.5); Neutrophils Percent Auto 34.2 % (43.0-75.0); Platelet Count 217 10^3/uL (150-450); Red Blood Count 4.62 10^6/uL (4.20-5.40); Red Cell Distribution Width 13.1 % (11.0-15.0); White Blood Count 6.1 10^3/uL (4.0-11.0)
[2024-10-16 09:05] LABS: Alanine Aminotransferase 19 U/L (14-59); Albumin Globulin Ratio 1.2; Albumin Level 3.7 g/dL (3.4-5.0); Alkaline Phosphatase 73 U/L (46-116); Anion Gap 8.4; Aspartate Amino Transferase 19 U/L (15-37); BUN Creatinine Ratio 23.9; Bilirubin Total 0.9 mg/dL (0.2-1.0); Calcium 9.3 mg/dL (8.5-10.1); Carbon Dioxide 29.4 mmol/L (21.0-32.0); Chloride 106 mmol/L (98-107); Chol HDL Ratio 2.1; Cholesterol 185 mg/dL (<=200); Estimated GFR (African America >60 (>=60 mL/min/1.73m^2); Estimated GFR (Non-African Ame >60 (>=60 mL/min/1.73m^2); Glucose 85 mg/dL (74-106); HDL Cholesterol 88 mg/dL (40-60); Potassium 3.8 mmol/L (3.5-5.1); Sodium 140 mmol/L (136-145); Thyroid Stimulating Hormone 2.088 uIU/mL (0.358-3.740); Total Protein 6.7 g/dL (6.4-8.2); Triglycerides 43 mg/dL (<=150); VLDL CHOLESTEROL 8.6 mg/dL
[2024-10-16 09:40] LABS: Free T4 1.21 ng/dL (0.76-1.46)
== END 2024-10-16 08:10 | disposition home or self-care (01) ==
LOC: LAB 08:09
PROVIDERS: PCP Family Medicine; Visit Provider Physician Assistant
DX: Z00.00 Encounter for general adult medical examination without abnormal findings (principal); K21.9 Gastro-esophageal reflux disease without esophagitis; Z13.0 Encounter for screening for diseases of the blood and blood-forming organs and certain disorders involving the immune mechanism; Z13.1 Encounter for screening for diabetes mellitus; Z13.6 Encounter for screening for cardiovascular disorders; N95.2 Postmenopausal atrophic vaginitis; E03.9 Hypothyroidism, unspecified; F17.200 Nicotine dependence, unspecified, uncomplicated; I10 Essential (primary) hypertension
CPT/HCPCS: 36415; 80053; 80061; 84439; 84443; 85025